=== PATIENT | male | born 1940 | race Caucasian/White ===

== ENCOUNTER → 2018-04-07 09:22 | Outpatient (CLI) | payer MEDICARE, SELFPAY ==
--- NOTE | 2018-04-07 09:25 | DI.RAD.S_ITS ---
PROCEDURE: XR CHEST 2V INDICATIONS: Chest pain, shortness of breath TECHNIQUE: 2 views of the chest were acquired. COMPARISON: [facility], , CHEST 2 VIEW, 11/05/2014, 8:31. FINDINGS: Surgical changes and devices: None. Lungs and pleura: No pleural effusions or pneumothorax. Redemonstrated left basilar scarring versus atelectasis. Increased right basilar opacities noted, seen on both PA and lateral views. Mediastinum: Mediastinal contours are normal. Heart size is normal. Bones and chest wall: Multilevel degenerative changes of the spine noted. IMPRESSION: Increased right basilar opacities favored to represent atelectasis versus pneumonia. Dictated by: Alpesh Chicas M.D. on 04/07/2018 at 11:41 Approved by: Alpesh Chicas M.D. on 04/07/2018 at 11:50
[2018-04-07 10:03] LABS: Add Manual Diff / Slide Review NO; Basophils Percent Auto 0.5 % (0-2); Eosinophils Percent Auto 3.1 % (2-4); Hematocrit 43.7 % (41-53); Lymphocytes Percent Auto 22.4 % (25-40); Mean Corpuscular HGB Conc 34.3 % (30-36); Mean Corpuscular Hemoglobin 30.9 PG (26-34); Monocytes Percent Auto 10.2 % (3-14); Neutrophils Absolute Auto 5200 /uL (3000-5900); Neutrophils Percent Auto 63.8 % (50-75); Platelet Count 208 X10^3/uL (150-400); Red Blood Cell Count 4.85 X10^6/uL (4.5-5.9); Red Cell Distribution Width 13.6 % (11.6-14.8); White Blood Cell Count 8.1 X10^3/uL (4.5-11.0)
[2018-04-07 10:14] LABS: Alanine Aminotransferase 35 IU/L (21-72); Albumin 4.3 g/dL (3.5-5.0); Albumin Globulin Ratio 1.4 (1.0-2.8); Alkaline Phosphatase 69 U/L (38-126); Aspartate Aminotransferase 29 IU/L (17-59); BUN Creatinine Ratio 21.3 (6-22); Bilirubin Total 0.7 mg/dL (0.2-1.3); Blood Urea Nitrogen 32 mg/dL (9-20); Calcium 9.4 mg/dL (8.4-10.2); Carbon Dioxide 24 mmol/L (22-32); Chloride 108 mmol/L (98-107); Estimated Glomerular Filt Rate 45.5 mL/min (>60); Glucose 111 mg/dL (80-110); HEMOLYSIS 17 (0-50); Magnesium 2.1 mg/dL (1.6-2.3); Potassium 4.1 mmol/L (3.4-5.1); Sodium 144 mmol/L (137-145); Total Protein 7.3 g/dL (6.3-8.2)
[2018-04-07 10:26] LABS: D Dimer < 200 ng/mL (<230)
== END ==
PROVIDERS: Family Provider Family Medicine; PCP Family Medicine; Visit Provider Registered Nurse
DX: R06.02 Shortness of breath (principal); R07.9 Chest pain, unspecified
CPT/HCPCS: 71046; 80053; 83735; 85025; 85379

== ENCOUNTER → 2018-04-09 11:26 | Outpatient (CLI) | payer MEDICARE, OTHER, SELFPAY ==
--- NOTE | 2018-05-02 07:56 | P.HOLT.S_ITS ---
Associate Media Director Report Referral & Results Date Patient Seen: 04/09/18 Requesting provider: Catherine Brock Indication: Chest pain Duration of monitoring (days): 14 Diary information: There was 1 patient diary entry and 5 patient triggered events. These were associated with sinus rhythm and PVCs Data: Minimum heart rate identified was 55 beats per minute at 00:59 on 2017 Maximum sinus heart rate was 121 beats per minute at 10:03 on 04/19/2018 Maximum overall heart rate was 169 beats per minute at 14:27 on 04/10/2018 and this was associated with a 70 run of supraventricular tachycardia Less than 1% of identified beats were either ectopic from a supraventricular or ectopic from a ventricular origin Patient did have 20 runs of a supraventricular tachycardia or atrial tachycardia with the fastest being the 7 be run at 169 beats per minute in the longest being 13 beats Impression: 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 Mild supraventricular dysrhythmia as above. Clinical correlation suggested
== END ==
PROVIDERS: Family Provider Family Medicine; PCP Family Medicine; Visit Provider Registered Nurse
DX: R07.89 Other chest pain (principal)
CPT/HCPCS: 0296T

== ENCOUNTER → 2018-04-16 09:17 | Outpatient (CLI) | payer MEDICARE, SELFPAY ==
--- NOTE | 2018-04-16 09:20 | DI.ECHO.S_ITS ---
[facility]---------+ [facility] +---------+ : : [address] : : : : [id number] : : : : Phone: [phone]+ Echocardiogram Report + + :Name: DOUGLAS STAUFFER Study Date: 04/16/2018 Height: 67 in : :[facility] Exam Location: IS Weight: 207 lb : : Gender: Male BSA: 2.1 m2 : :: 1940 Age: 78 yrs BP: 100/65 mmHg: :Reason For Study: SOB/ Acute fatigue : : Performed By: Caterina Page : :Referring: DEE DEE CARRANZA : + + Interpretation Summary The left ventricle is normal in size. Left ventricular ejection fraction is estimated to be 55 +/- 5%. There has been no significant change in LV EF since the previous exam. The right ventricle is mildly dilated. The right ventricular systolic function is normal. The aortic valve is trileaflet. Leaflet mobility is minimally reduced. The peak aortic velocity is 2.1 m/sec. The peak aortic velocity on the previous exam was 2.1 m/sec. The calculated aortic valve area is 1.9 cm2. There is mild aortic stenosis. There has been no significant change since the previous study. The aortic root is mildly dilated. The ascending aorta is mildly enlarged. Mild atherosclerotic plaque(s) in the descending aorta. Procedure: A two-dimensional transthoracic echocardiogram with color flow and Doppler was performed. The study quality was technically adequate. Comparison is made with the echocardiogram of 03/02/2016. The heart rate ranged between 69-75 bpm during the study. The patient was in normal sinus rhythm during the exam. The patient had a bundle branch block rhythm during the exam. Left Ventricle: The left ventricle is normal in size. Proximal septal thickening is noted. There is no echo evidence for significant left ventricular outflow tract obstruction. There is no thrombus. There has been no significant change since the previous exam. Left ventricular ejection fraction is estimated to be 55 +/- 5%. There is a significant dyssynchronous contraction pattern, consistent with a conduction abnormality. Diastolic parameters suggest a relaxation abnormality of the left ventricle, consistent with probable normal filling pressures. Right Ventricle: The right ventricle is mildly dilated. The right ventricular systolic function is normal. Atria: The left atrial size is normal. The left atrium has mildly decreased in size since the prior echo exam. The right atrium is borderline dilated. There is no Doppler evidence for an interatrial shunt. Mitral Valve: The mitral valve leaflets appear thickened, but open well. There is moderate mitral annular calcification. No significant mitral valve stenosis. There is trace mitral regurgitation. Aortic Valve: The aortic valve is trileaflet. Leaflet mobility is minimally reduced. The aortic valve is mildly calcified. The peak aortic velocity is 2.1 m/sec. The peak aortic velocity on the previous exam was 2.1 m/sec. The calculated aortic valve area is 1.9 cm2. There has been no significant change since the previous study. There is mild aortic stenosis. No aortic regurgitation is present. Tricuspid Valve: The tricuspid valve is normal in structure and function. There is a trace or physiologic amount of tricuspid regurgitation. Pulmonary artery pressures cannot be estimated because of the lack of a measurable TR jet velocity. Pulmonic Valve: The pulmonic valve is not well visualized. There is trace pulmonic regurgitation. Great Vessels: The aortic root is mildly dilated. This is unchanged compared to the previous study. The ascending aorta is mildly enlarged. The aortic arch could not be visualized. Mild atherosclerotic plaque(s) in the descending aorta. The pulmonary artery is not well visualized, but is probably normal size. The IVC is of normal diameter and collapses greater than 50% with a sniff. This suggests a low right atrial pressure of 3 mm Hg. Pericardium/ Pleura There is no pericardial effusion. There is an anterior echo-free space consistent with a fat pad. There is no pleural effusion. MMode/2D Measurements & Calculations LVIDd: 5.1 cm LVOT diam: 2.3 cm LVIDs: 3.5 cm Ao root diam: 4.0 cm FS: 32.2 % asc Aorta Diam: 3.7 cm EPSS: 0.74 cm IVSd: 0.98 cm LVPWd: 1.1 cm LV hidalgo. diameter/BSA (cm/m^2): 2.5 LV sys. diameter/BSA (cm/m^2): 1.7 LA A2 area: 23.5 cm2 RA long axis: 6.1 cm LA A4 area: 22.6 cm2 RA area: 22.0 cm2 LA length (vol): 6.7 cm RA vol: 67.6 ml LA vol: 67.3 ml RA : 32.9 ml/m2 LA vol index: 32.8 ml/m2 IVC diam: 1.9 cm RVD1 (basal): 4.7 cm TAPSE: 1.9 cm Doppler Measurements & Calculations Ao V2 max: 208.6 cm/sec LVOT Max Walker: 101.9 cm/sec Ao V2 mean: 139.7 cm/sec LV V1 max P.2 mmHg Ao max P.4 mmHg LV V1 VTI: 14.9 cm Ao mean P.6 mmHg JOURDAN(I,D): 1.9 cm2 Ao V2 VTI: 32.0 cm JOURDAN(V,D): 2.0 cm2 sev ratio: 0.46 JOURDAN indexed to BSA (cm^2/m^2): 0.92 MV E max walker: 60.6 cm/sec TR max walker: 211.7 cm/sec MV A max walker: 100.6 cm/sec TR max P.9 mmHg MV E/A: 0.60 PA V2 max: 90.2 cm/sec Med Peak E' Walker: 4.3 cm/sec PA V2 mean: 54.1 cm/sec E/E' med: 14.0 PA mean P.3 mmHg Lat Peak E' Walker: 5.1 cm/sec PA Accel Time: 0.08 sec E/E' lat: 12.0 E/e' average: 13.0 MV dec time: 0.19 sec MV P1/2t: 55.4 msec MV P1/2t max walker: 60.8 cm/sec MVA(P1/2t): 4.0 cm2 Reading Physician:AM
== END ==
PROVIDERS: Family Provider Internal Medicine Cardiovascular Disease; PCP Family Medicine; Visit Provider Registered Nurse
DX: I35.0 Nonrheumatic aortic (valve) stenosis (principal); R06.02 Shortness of breath; R53.83 Other fatigue; I25.10 Atherosclerotic heart disease of native coronary artery without angina pectoris
CPT/HCPCS: 93306

== ENCOUNTER 2018-05-30 07:39 | Day surgery (SDC) | payer MEDICARE, OTHER, SELFPAY ==
--- NOTE | 2018-05-30 | PATH_ITS ---
[facility] Accession Number: [id number] . 01 Material submitted: . COLON POLYPS AT 100CM X2 . 02 Diagnosis: Colon, Polyps at 100 cm, Biopsies: Tubular adenoma in four of twelve fragments. [facility]/06/02/2018 . 02 Electronically signed: . Merlene Welch MD, Pathologist NPI- [id number] . 01 Gross description: . Received in one formalin-filled container labeled with the patient's name and labeled colon polyps at 100 cm x2, are multiple 0.1 cm to 0.4 cm portions of tissue, which are filtered, wrapped, and entirely submitted in one cassette. ([id number]) /FRR . 02 Pathologist provided ICD-10: D12.6 . 02 CPT . 754373 Specimen Comment: A duplicate report has been generated due to demographic updates. Performed at: 01 [facility] [address] [facility] [place], [place], [place] [id number] MD Ramón Mckeon MD Phone: [phone] Performed at: [facility] [address] [place], [place] [id number] MD Merlene Welch MD Phone: [phone]
[2018-05-30 07:51] VITALS: BP 117/77; PULSE 73; RESP 16; TEMP 36.3; O2SAT 96; BMI 28.7
--- NOTE | 2018-05-30 09:05 | PM.HP.1 ---
History of Present Illness Date Patient Seen: 05/30/18 Time Patient Seen: 09:05 Chief complaint: [id number] Narrative: Patient is a gentleman here for screening colonoscopy. His last exam was 6 years ago. He has had polyps in the past. He also has a family history of colon cancer. His mother had it. Patient History Medical History Cataract (Chronic) Chronic cough (Chronic) Diverticular disease (Chronic) Foot pain (Chronic 2013) Gout (Chronic) Hayfever (Chronic) Hearing loss (Chronic) Bladder cancer (Resolved 2007) Chicken pox (Resolved) Colon polyps (Resolved) Measles (Resolved) Mumps (Resolved) Surgical History History of cataract extraction with lens replacement (Acute) Anesthesia (Resolved) History of bladder surgery (Resolved 2007) Status post appendectomy (Resolved 1964) Status post hernia repair (Resolved 1964) Family & Social History Family History: Reviewed 05/30/18 by Nav Calderon MD Social History: household members spouse Tobacco & Substance use: Smoking Status Former smoker Meds Home Medications Medication Instructions Recorded Confirmed Type glucosamine sulfate [Genicin] 500 mg PO #0 02/21/16 04/04/18 History atorvastatin [Lipitor] 80 mg PO HS #90 tab 07/11/17 04/04/18 Rx losartan 25 mg PO QDAY #90 tab 07/11/17 04/04/18 Rx probenecid 500 mg PO SEE INSTRUCTIONS #180 tab 07/11/17 04/04/18 Rx Allergies Allergy/AdvReac Type Severity Reaction Status Date / Time No Known Drug Allergies Allergy Verified 05/30/18 08:11 Review of Systems Review of Systems Has had chest pain in the past evaluated and found to be noncardiac in nature. History of bladder cancer. Underwent TURB All systems reviewed & are unremarkable except as noted in HPI and below Exam Vital Signs (past 8 hours): - 05/30/18 07:51 Temperature 97.3 F L Pulse Rate 73 Respiratory Rate 16 Blood Pressure 117/77 Pulse Oximetry 96 Oxygen Delivery Method Room Air Narrative Exam Narrative: Operative no apparent distress. His eyes are nonicteric. Lungs are clear to auscultation. No rales or rhonchi. Heart regular rate and rhythm without murmur gallop. Abdomen is soft nontender without mass. Protuberant. Alert and oriented x3. Assessment & Plan Plan: Assessment/Plan Narrative: Patient is screening colonoscopy. I have discussed the procedure and the rationale with the patient including risks of bleeding, perforation which would necessitate a major operation, failure to find remove all lesions and the potential to tattoo. They appeared to understand and wished to proceed.
--- NOTE | 2018-05-30 09:09 | PM.PREOP ---
Pre-operative Note Interval Note Pre-op Check: Yes History & Physical exam performed today by Physician Changes: No ASA Class (for procedural sedation): II
[2018-05-30] MEDS: MIDAZOLAM 5 MG/5 ML VIAL IV (09:28)
[2018-05-30] MEDS: fentaNYL 250 MCG/5 ML INJ IV (09:28)
[2018-05-30] MEDS: SODIUM CHLORIDE 0.9% 1,000 ML 1000 ML IV (09:31)
--- NOTE | 2018-05-30 09:38 | PM.OP.ENDO ---
Operative Date/Time/Diagnoses Date of procedure: 05/30/18 Time of procedure: 09:38 Pre-op diagnosis: Screening examination. History of polyps. Family history colon cancer. Post-op diagnosis: same (Extensive diverticulosis from 20-80 cm. No narrowing or tortuosity however. No evidence of prior inflammation. Two small polyps that approximately 100 cm from the anal verge.) Procedure & Clinicians Study performed: Colonoscopy with cold biopsy. Same procedure as scheduled: Yes Indications: Screening. Last exam 6 years ago. History of polyps/positive family history Surgeon: Nav Calderon Procedure Notes SCOAP/Timeout: Performed Procedure in detail: The patient was placed in the left lateral decubitus position and underwent IV sedation directed by the surgeon consisting of fentanyl and Versed. Digital exam was unremarkable. The prostate is flat.. The scope was inserted and advanced through the rectum into the sigmoid, descending, transverse, and ascending colon. Somewhere in the area of the transverse colon there was a small polyp which I identified and removed with cold biopsy forceps. The cecum was reached identified by the ileocecal valve and the appendiceal opening. The ileocecal valve was successfully cannulated. The terminal ileum was normal in appearance. The scope was gradually brought out. Another Polyp was found near the 1st polyp. This was too was biopsied and removed.. The scope ultimately was retroflexed in the rectum. The appearance was normal. The scope was removed and the patient tolerated the procedure well Scope withdrawal time: Twelve Sedation minutes: 25 Findings: diverticulosis (Principally in the left colon. A few were scattered elsewhere.) and polyp (Two near 100 cm from the anal verge.) Recommendations: Colonscopy in 5 years Follow up: as needed Disposition: PACU
[2018-05-30 09:45] VITALS: BP 114/73; PULSE 64; RESP 10; TEMP 36; O2SAT 96
[2018-05-30 09:50] VITALS: BP 109/67; PULSE 58; RESP 12; O2SAT 95
[2018-05-30 09:55] VITALS: BP 106/70; PULSE 64; RESP 15; O2SAT 94
[2018-05-30 09:59] VITALS: BP 110/69; PULSE 60; RESP 15; TEMP 35.9; O2SAT 92
[2018-05-30 10:10] VITALS: BP 112/66; PULSE 58; RESP 16; TEMP 36.1; O2SAT 94
== END 2018-05-30 10:20 | disposition home or self-care (01) ==
PROVIDERS: Family Provider Internal Medicine Cardiovascular Disease; PCP Family Medicine; Visit Provider Specialist
PROC: 0DJD8ZZ Inspection of Lower Intestinal Tract, Via Natural or Artificial Opening Endoscopic (ICD-10-PCS; CPT 45378; principal; 2018-05-30 08:45)
DX: Z86.010 Personal history of colon polyps (principal); Z80.0 Family history of malignant neoplasm of digestive organs; K57.30 Diverticulosis of large intestine without perforation or abscess without bleeding; D12.6 Benign neoplasm of colon, unspecified; Z87.891 Personal history of nicotine dependence
CPT/HCPCS: 45380; 88305; 99152; 99153; J2250; J3010

== ENCOUNTER → 2018-12-03 06:49 | Outpatient (CLI) | payer MEDICARE, OTHER, SELFPAY ==
[2018-12-03 08:26] LABS: Add Manual Diff / Slide Review NO; Basophils Absolute Auto 100 /uL (0-100); Basophils Percent Auto 0.7 % (0-2); Eosinophils Absolute Auto 200 /uL (0-450); Eosinophils Percent Auto 3.1 % (2-4); Hematocrit 45.9 % (41-53); Lymphocytes Absolute Auto 1600 /uL (1100-4500); Mean Corpuscular HGB Conc 32.8 % (30-36); Mean Corpuscular Hemoglobin 29.8 PG (26-34); Mean Corpuscular Volume 91.1 fL (80-100); Monocytes Absolute Auto 900 /uL (0-900); Monocytes Percent Auto 11.8 % (3-14); Neutrophils Absolute Auto 5100 /uL (1500-7000); Neutrophils Percent Auto 64.4 % (50-75); Platelet Count 199 X10^3/uL (150-400); Red Blood Cell Count 5.03 X10^6/uL (4.5-5.9); Red Cell Distribution Width 13.3 % (11.6-14.8)
[2018-12-03 08:47] LABS: Alanine Aminotransferase 32 IU/L (21-72); Albumin 4.5 g/dL (3.5-5.0); Albumin Globulin Ratio 1.5 (1.0-2.8); Alkaline Phosphatase 74 U/L (38-126); Aspartate Aminotransferase 24 IU/L (17-59); Bilirubin Total 0.6 mg/dL (0.2-1.3); Blood Urea Nitrogen 35 mg/dL (9-20); Calcium 9.6 mg/dL (8.4-10.2); Carbon Dioxide 24 mmol/L (22-32); Chloride 105 mmol/L (98-107); Cholesterol 169 mg/dL (140-199); Estimated Glomerular Filt Rate 49.3 mL/min (>60); Globulin 3.1 g/dL (1.7-4.1); Glucose 106 mg/dL (80-110); HDL Cholesterol 46 mg/dL (40-60); LDL Cholesterol Calculated 102 mg/dL (<100); Potassium 4.6 mmol/L (3.4-5.1); Sodium 140 mmol/L (137-145); Total Protein 7.6 g/dL (6.3-8.2); Triglycerides 104 mg/dL (35-150)
[2018-12-03 09:17] LABS: Thyroid Stimulating Hormone 2.59 uIU/mL (0.47-4.68)
[2018-12-03 09:19] LABS: HEMOLYSIS < 15 (0-50); Prostate Specific Antigen Scrn 0.418 ng/mL (0.1-4.0)
== END ==
PROVIDERS: PCP Family Medicine; Visit Provider Family Medicine
DX: I10 Essential (primary) hypertension (principal); Z12.5 Encounter for screening for malignant neoplasm of prostate
CPT/HCPCS: 36415; 80053; 80061; 84443; 85025; G0103

== ENCOUNTER → 2019-02-09 07:18 | Outpatient (CLI) | payer MEDICARE, OTHER, SELFPAY ==
[2019-02-09 08:59] LABS: Alanine Aminotransferase 24 IU/L (21-72); Albumin 4.2 g/dL (3.5-5.0); Albumin Globulin Ratio 1.5 (1.0-2.8); Alkaline Phosphatase 80 U/L (38-126); Aspartate Aminotransferase 21 IU/L (17-59); BUN Creatinine Ratio 18.6 (6-22); Bilirubin Total 0.8 mg/dL (0.2-1.3); Blood Urea Nitrogen 26 mg/dL (9-20); C-Reactive Protein Quant < 0.5 mg/dL (<1.0); Calcium 9.5 mg/dL (8.4-10.2); Carbon Dioxide 22 mmol/L (22-32); Chloride 106 mmol/L (98-107); Cholesterol 155 mg/dL (140-199); Estimated Glomerular Filt Rate 49.3 mL/min (>60); Globulin 2.8 g/dL (1.7-4.1); Glucose 103 mg/dL (80-110); HDL Cholesterol 45 mg/dL (40-60); HEMOLYSIS < 15 (0-50); LDL Cholesterol Calculated 82 mg/dL (<100); Potassium 4.7 mmol/L (3.4-5.1); Sodium 139 mmol/L (137-145); Triglycerides 141 mg/dL (35-150)
== END ==
PROVIDERS: Family Provider Family Medicine; PCP Family Medicine; Visit Provider Internal Medicine Cardiovascular Disease
DX: E78.5 Hyperlipidemia, unspecified (principal)
CPT/HCPCS: 36415; 80053; 80061; 86140

== ENCOUNTER → 2019-02-19 09:41 | Outpatient (CLI) | payer MEDICARE, OTHER, SELFPAY ==
--- NOTE | 2019-02-19 | DI.US.S_ITS ---
PROCEDURE: US CAROTID DOPPLER BI INDICATIONS: STENOSIS TECHNIQUE: Color and pulse Doppler interrogation was performed of both carotid systems, with image documentation and velocity measurements. COMPARISON: [facility], , CAROTID ARTERY DOPPLER BILAT, 03/02/2016, 13:51. FINDINGS: Stenosis calculations are based on SRU (Society of Radiologists in Ultrasound) criteria. Right side: Brachial blood pressure: 124/81 mm Hg. Common carotid artery peak systolic velocity: 84 cm/sec. Internal carotid artery peak systolic velocity: 75 cm/sec. Internal carotid artery end diastolic velocity: 26 cm/sec. External carotid artery peak systolic velocity: 77 cm/sec. ICA/CCA peak systolic ratio: 0.9. Coto scale imaging description: Minimal plaque. Percent internal carotid artery stenosis: Less than 50%. Vertebral artery: Flow direction is antegrade. Left side: Brachial blood pressure: 109/69 mm Hg. Common carotid artery peak systolic velocity: 80 cm/sec. Internal carotid artery peak systolic velocity: 62 cm/sec. Internal carotid artery end diastolic velocity: 23 cm/sec. External carotid artery peak systolic velocity: 74 cm/sec. ICA/CCA peak systolic ratio: 0.8. Coto scale imaging description: Minimal plaque. Percent internal carotid artery stenosis: Less than 50%. Vertebral artery: Flow direction is antegrade. IMPRESSION: Less than 50% bilateral internal carotid artery stenosis which is unchanged from prior exam. Dictated by: Eder Santos [facility] Interpreted: Ravinder Marvin MD on 02/19/2019 at 14:36 Approved by: Ravinder Marvin M.D. on 02/19/2019 at 14:52
== END ==
PROVIDERS: Family Provider Family Medicine; PCP Family Medicine; Visit Provider Internal Medicine Cardiovascular Disease
DX: I65.23 Occlusion and stenosis of bilateral carotid arteries (principal)
CPT/HCPCS: 93880

== ENCOUNTER → 2019-03-18 14:21 | Outpatient (CLI) | payer MEDICARE, OTHER, SELFPAY ==
--- NOTE | 2019-03-18 14:24 | DI.RAD.S_ITS ---
PROCEDURE: XR HIP W PEL IF DONE RT 2V INDICATIONS: right hip pain TECHNIQUE: AP pelvis with lateral view(s) of the right hip(s). COMPARISON: None. FINDINGS: Bones: No fractures or dislocations. Pelvic ring appears intact. No suspicious bony lesions. Soft tissues: The visualized bowel gas pattern is normal. No suspicious soft tissue calcifications. IMPRESSION: Mild symmetric hip joint osteoarthritis, no source of asymmetric right-sided predominant pain is found. Dictated by: Frank German M.D. on 03/18/2019 at 15:29 Approved by: Frank German M.D. on 03/18/2019 at 15:29
== END ==
PROVIDERS: Family Provider Family Medicine; PCP Family Medicine; Visit Provider Nurse Practitioner Family
DX: M25.551 Pain in right hip (principal); M16.11 Unilateral primary osteoarthritis, right hip
CPT/HCPCS: 73502

== ENCOUNTER 2019-07-05 23:31 | Emergency (ER) | payer MEDICARE, OTHER, SELFPAY ==
[2019-07-05 23:41] VITALS: BP 174/95; PULSE 76; RESP 16; TEMP 36.6; O2SAT 95; BMI 27.2
--- NOTE | 2019-07-05 23:57 | ED.GENADULT ---
HPI - General Adult General Chief complaint: Dental/Oral Stated complaint: left upper jaw/tooth pain Time Seen by Provider: 07/05/19 23:46 Source: patient Mode of arrival: Ambulatory Limitations: no limitations History of Present Illness HPI narrative: 79-year-old male here for evaluation of left upper tooth/jaw pain. Patient states that he does wear partial on this side. Thinks that he did injure his tooth when he bit down on a piece of food over the past day or so. Has not seen a dentist since then. Has had pain since then. Related Data Previous Rx's Medication Instructions Recorded atorvastatin [Lipitor] 80 mg PO HS #90 tab 07/11/17 losartan 25 mg PO QDAY #90 tab 07/11/17 probenecid 500 mg tablet 500 mg PO BID #180 tab 06/30/18 penicillin V potassium 500 mg PO QID 7 Days #28 tab 07/05/19 Allergies Allergy/AdvReac Type Severity Reaction Status Date / Time No Known Drug Allergies Allergy Verified 03/18/19 13:54 Review of Systems Constitutional Constitutional: Denies headache(s) ENT Ears, Nose, Mouth, and Throat: Denies headache(s) Comments: Left upper tooth/strong pain Integumentary/Breasts Skin/Breast: Denies lesions and Denies rash Neurologic Neurologic: Denies behavioral changes and Denies headache(s) Psychiatric Psychiatric: Denies behavioral changes Hematologic/Lymphatic Hematologic/Lymphatic: Denies easy bleeding and Denies easy bruising Patient History Medical History Bladder cancer (Resolved 2007) Cataract (Chronic) Chicken pox (Resolved) Chronic cough (Chronic) Colon polyps (Resolved) Diverticular disease (Chronic) Foot pain (Chronic 2013) Gout (Chronic) Hayfever (Chronic) Hearing loss (Chronic) Measles (Resolved) Mumps (Resolved) Surgical History (System 02/16/19 @ 10:12 by Nimo Morrissey) Anesthesia (Resolved) History of bladder surgery (Resolved 2007) History of cataract extraction with lens replacement (Acute) Status post appendectomy (Resolved 1964) Status post hernia repair (Resolved 1964) Social History household members: spouse Smoking Status: Former smoker Smoking Status: Former smoker alcohol intake frequency: 0-2 drinks per day Substance Use Type: does not use Exam Initial Vital Signs Initial Vital Signs: Vital Signs Temperature 97.8 F 07/05/19 23:41 Pulse Rate 76 07/05/19 23:41 Respiratory Rate 16 07/05/19 23:41 Blood Pressure 174/95 H 07/05/19 23:41 Pulse Oximetry 95 07/05/19 23:41 Const General: cooperative and comfortable HENMT Head: normal to inspection and normocephalic Ears: TM's normal bilaterally Mouth: oral mucosae normal Teeth and gingiva: no caries and other (Tooth 13 is loose) Eyes General: appearance normal, both eyes and all related structures Resp Effort & Inspection: normal respiratory effort Neuro General: alert and awake Course Orders Ordered: Discontinued Medications Penicillin V Potassium (Veetids) 500 mg PO NOW ONE Stop: 07/05/19 23:59 Last Admin: 07/06/19 00:05 Dose: 500 mg Documented by: MORRO Vital Signs Vital signs: Vital Signs - 8 hr 07/05/19 23:41 Temperature 97.8 F Pulse Rate 76 Respiratory Rate 16 Blood Pressure 174/95 H Pulse Oximetry 95 Medical Decision Making MDM Narrative Medical decision making narrative: No defined abscess on exam. Is missing several left upper teeth. I believe it is tooth 13. Is loose to the touch and he does seem to have discomfort with this. He states that this was the to the potentially injured while eating. Will start the patient on antibiotics given his symptoms. Informed him that he should talk with a dentist about further evaluation and treatment. He was given return precautions and follow-up instructions. He expressed understanding and agreement plan. Discharge Plan Departure Patient Disposition: Home Clinical Impression: Pain, dental Discharge Date/Time: 07/06/19 00:08 Instructions: DI for Dental Pain Activity Restrictions/Additional Instructions: Take the antibiotics as directed. You can also continue to take Tylenol and/or ibuprofen. I do recommend that you see a dentist for further definitive treatment. Return to the emergency department for any new symptoms Prescriptions: New penicillin V potassium 500 mg tablet 500 mg PO QID 7 Days Qty: 28 RF: 0 No Action atorvastatin [Lipitor] 80 MG tablet 80 mg PO HS Qty: 90 RF: 3 losartan 25 MG tablet 25 mg PO QDAY Qty: 90 RF: 3 probenecid 500 mg tablet 500 mg PO BID Qty: 180 RF: 3 Referrals: Quinn Dockrey MD [Primary Care Provider] -
[2019-07-06] MEDS: PENICILLIN VK 250 MG TABLET 500 MG PO (00:05)
== END 2019-07-06 00:08 | disposition home or self-care (01) ==
PROVIDERS: Emergency Provider Emergency Medicine; Family Provider Family Medicine; PCP Family Medicine
DX: K08.89 Other specified disorders of teeth and supporting structures (principal)
CPT/HCPCS: 99281; 99283

== ENCOUNTER → 2019-11-04 15:41 | Outpatient (CLI) | payer MEDICARE, SELFPAY ==
--- NOTE | 2019-11-04 15:47 | DI.CT.S_ITS ---
PROCEDURE: CT HEAD/BRAIN WO CON INDICATIONS: Concussion TECHNIQUE: Noncontrast 4.5 mm thick angled axial sections acquired from the foramen magnum to the vertex, with coronal and sagittal reformats. For radiation dose reduction, the following was used: automated exposure control, adjustment of mA and/or kV according to patient size. COMPARISON: None. FINDINGS: Image quality: Excellent. CSF spaces: Basal cisterns are patent. No extra-axial fluid collections. The ventricles are symmetric in size and shape. Brain: No intracranial bleeds or masses. There is cerebral volume loss for age, with resultant ventricular and sulcal prominence. There are mild periventricular and deep white matter chronic small vessel ischemic changes. There is intracranial internal carotid artery atherosclerosis. Skull and face: Calvarium and visualized facial bones appear intact, without suspicious lesions. Small subgaleal hematoma, right parieto-occipital region. Sinuses: Visualized sinuses and mastoids are clear. IMPRESSION: 1. Age related volume loss and mild small vessel ischemic change. 2. Negative for acute stroke, hemorrhage, or mass. 3. No evidence of significant intracranial sequelae of acute trauma. 4. Small right right occipital region subgaleal hematoma. Dictated by: Mason Chopra M.D. on 11/04/2019 at 16:09 Approved by: Mason Chopra M.D. on 11/04/2019 at 16:11
== END ==
PROVIDERS: Family Provider Family Medicine; PCP Family Medicine; Referring Provider Family Medicine; Visit Provider Family Medicine
DX: S06.0X9A Concussion with loss of consciousness of unspecified duration, initial encounter (principal); S06.319A Contusion and laceration of right cerebrum with loss of consciousness of unspecified duration, initial encounter; X58.XXXA Exposure to other specified factors, initial encounter
CPT/HCPCS: 70450

== ENCOUNTER → 2019-11-16 09:30 | Outpatient (CLI) | payer MEDICARE, SELFPAY ==
--- NOTE | 2019-11-16 09:32 | DI.RAD.S_ITS ---
PROCEDURE: FL BARIUM SWALLOW INDICATIONS: Dysphagia COMPARISON: None. FINDINGS: Function: There is moderate esophageal dysmotility with loss of the primary wave. No elicited gastroesophageal reflux. Morphology: There is a small intermittent sliding hiatal hernia. Air-contrast images demonstrate normal mucosal morphology. Single contrast views show no esophageal strictures, extrinsic mass effects, or diverticula. Limited images of the stomach demonstrate normal appearance. IMPRESSION: 1. Moderate esophageal dysmotility. 2. Small hiatal hernia. Dictated by: Lea Guillen M.D. on 11/16/2019 at 16:22 Approved by: Lea Guillen M.D. on 11/16/2019 at 16:22
== END ==
PROVIDERS: Family Provider Family Medicine; PCP Family Medicine; Referring Provider Family Medicine; Visit Provider Family Medicine
DX: R13.10 Dysphagia, unspecified (principal); K22.4 Dyskinesia of esophagus; K44.9 Diaphragmatic hernia without obstruction or gangrene
CPT/HCPCS: 74220

== ENCOUNTER 2019-11-19 22:55 | Emergency (ER) | payer MEDICARE, SELFPAY ==
[2019-11-19 23:05] VITALS: BP 136/85; PULSE 96; RESP 16; TEMP 36.3; O2SAT 96; BMI 27.9
--- NOTE | 2019-11-19 23:16 | PC.NURSE ---
Dental assessment deferred to .
[2019-11-19] MEDS: BUPIVACAINE 0.5% W/ EPI (PF) 30 ML VIAL (23:29)
[2019-11-19] MEDS: AMOXICILLIN/CLAV 875/125 MG 1 TAB PO (23:57)
[2019-11-20] VITALS: BP 134/85; PULSE 89; RESP 15; O2SAT 97
--- NOTE | 2019-11-20 07:03 | ED_ITS ---
HPI - Dental/Oral General Chief complaint: Dental/Oral Stated complaint: broken tooth Time Seen by Provider: 11/19/19 22:55 Source: patient Mode of arrival: Ambulatory Limitations: no limitations History of Present Illness HPI Narrative: 79M former smoker with history of HTN presents with a chief complaint of dental pain of a left upper tooth after fracturing it a few weeks ago. He complains of worsening pain and perhaps beginning of some facial cellulitis. He denies any fever chills. He has had no nausea, vomiting or diarrhea. He states his pain is not been controlled with Tylenol, Motrin or Orajel. He has been trying to get a dentist but but thus far unsuccessful Teeth map: 1. Onset (ago): day(s) Duration: constant Severity: mild Relieving factors: nothing Exacerbating factors: chewing, cold, heat and drinking fluids Context: history of dental caries Treatment prior to arrival: none Related Data Home Medications Medication Instructions Recorded Confirmed aspirin 325 mg tablet 162.5 mg PO DAILY tab 11/04/19 11/04/19 probenecid 500 mg tablet 500 mg PO .QD tab 11/04/19 Previous Rx's Medication Instructions Recorded losartan 25 mg PO QDAY #90 tab 07/11/17 amoxicillin-pot clavulanate 1 tab PO BID #20 tab 11/19/19 [Augmentin] Allergies Allergy/AdvReac Type Severity Reaction Status Date / Time No Known Drug Allergies Allergy Verified 11/04/19 15:12 Review of Systems Constitutional Constitutional: Denies chills, Denies fatigue, Denies fever(s), Denies frequent falls, Denies lethargy and Denies weakness Eyes Eyes: Denies change in vision, Denies eye discharge, Denies irritation and Denies loss of vision ENT Ears, Nose, Mouth, and Throat: Denies change in voice, Reports dental pain, Denies dizziness, Denies neck pain, Denies sore throat and Denies throat swelling Cardiovascular Cardiovascular: Denies chest pain, Denies irregular heart rhythm, Denies lightheadedness, Denies palpitations, Denies dyspnea, Denies dyspnea on exertion and Denies orthopnea Respiratory Respiratory: Denies cough, Denies dyspnea, Denies dyspnea on exertion and Denies wheezing Gastrointestinal Gastrointestinal: Denies abdominal pain, Denies change in bowel habits, Denies diarrhea, Denies nausea and Denies vomiting Genitourinary Genitourinary: Denies hematuria, Denies flank pain, Denies urinary incontinence and Denies urinary urgency Musculoskeletal Musculoskeletal: Denies back pain, Denies muscle weakness, Denies neck pain, Denies numbness and Denies tingling Integumentary/Breasts Skin/Breast: Denies pruritus, Denies erythema, Denies rash and Denies wounds Neurologic Neurologic: Denies behavioral changes, Denies confusion, Denies dizziness, Denies frequent falls, Denies loss of vision, Denies numbness, Denies tingling and Denies weakness Psychiatric Psychiatric: Denies anxiety, Denies behavioral changes, Denies confusion, Denies depression, Denies homicidal ideation and Denies suicidal ideation Endocrine Endocrine: Denies fatigue, Denies flushing and Denies palpitations Hematologic/Lymphatic Hematologic/Lymphatic: Denies easy bruising Allergic/Immunologic Allergic/Immunologic: Denies urticaria, Denies throat swelling and Denies wheezing Patient History Medical History Bladder cancer (Resolved 2007) Cataract (Chronic) Chicken pox (Resolved) Chronic cough (Chronic) Colon polyps (Resolved) Diverticular disease (Chronic) Foot pain (Chronic 2013) Gout (Chronic) Hayfever (Chronic) Hearing loss (Chronic) Measles (Resolved) Mumps (Resolved) Surgical History Anesthesia (Resolved) History of bladder surgery (Resolved 2007) History of cataract extraction with lens replacement (Acute) Status post appendectomy (Resolved 1964) Status post hernia repair (Resolved 1964) Family History Father Heart disease Mother Cancer Brother No problems noted. Sister No problems noted. Social History household members: spouse Smoking Status: Former smoker Smoking Status: Former smoker alcohol intake frequency: 0-2 drinks per day Substance Use Type: does not use Exam Narrative Exam Narrative: GEN: AOx3 and in mild distress EYES: Pupils are equal, round, and reactive to light and accommodation. Extraocc ular muscles are intact bilaterally. There is no subconjunctival hemorrhage or exudate. ENT: Dental fracture noted at tooth #10. NO swelling or pain at gumline, no fluctuance to suggest abscess. Perhaps mild facial swelling superior to tooth, but minimal at most CHEST: Lungs are clear to auscultation bilaterally and free of wheezes, rales, or rhonchi. Heart rate is regular rhythm, there are no murmurs, clicks, rubs, or gallops. There is no chest wall tenderness. ABD: Abdomen is soft and nontender. There is no guarding or rebound. Bowel sounds are normal in all 4 quadrants. There is no mass or organomegaly. EXT: Full painless ROM of all extremities with no loss of sensation or strength. SKIN: Warm, pink, and dry. No erythema or rash Initial Vital Signs Initial Vital Signs: Vital Signs Temperature 97.3 F L 11/19/19 23:05 Pulse Rate 96 H 11/19/19 23:05 Respiratory Rate 16 11/19/19 23:05 Blood Pressure 136/85 11/19/19 23:05 Pulse Oximetry 96 11/19/19 23:05 Procedures Nerve Block Nerve Block 1: Time out performed: Yes Local Anesthetic: bupivacaine 0.25% and with epi Amount of anesthesia used (mL): 6 Side: left Nerve Blocks: digital Procedure Successful: Yes Patient Tolerated Procedure: Well Complications: none Course Orders Ordered: Discontinued Medications Amoxicillin/Clavulanate Potassium (Augmentin 875-125 Mg) 1 tab PO NOW ONE Stop: 11/19/19 23:50 Last Admin: 11/19/19 23:57 Dose: 1 tab Documented by: LILI Vital Signs Vital signs: Vital Signs - 8 hr 11/19/19 23:05 11/20/19 00:00 Temperature 97.3 F L Pulse Rate 96 H 89 Respiratory Rate 16 15 Blood Pressure 136/85 134/85 Pulse Oximetry 96 97 Discharge Plan Departure Patient Disposition: Home Clinical Impression: Abscess, dental Discharge Date/Time: 11/20/19 00:12 Instructions: Tooth Abscess, DI for Dental Pain Activity Restrictions/Additional Instructions: *You have been diagnosed with [dental pain and abscess ] *What to do: *Take medications as directed *Follow up with your dentist, if you do not have one please contact Dr. Zazueta (listed below) *Return to ER if you should have any new, worsening or concerning symptoms Prescriptions: New amoxicillin-pot clavulanate [Augmentin] 875-125 mg tablet 1 tab PO BID Qty: 20 RF: 0 No Action losartan 25 MG tablet 25 mg PO QDAY Qty: 90 RF: 3 probenecid 500 mg tablet 500 mg PO .QD RF: 0 aspirin 325 mg tablet 162.5 mg PO DAILY RF: 0 Referrals: Jun Zazueta DMD [Physician] - Quinn Dockery MD [Primary Care Provider] -
== END 2019-11-20 00:12 | disposition home or self-care (01) ==
PROVIDERS: Emergency Provider Emergency Medicine; Family Provider Family Medicine; PCP Family Medicine
DX: K04.7 Periapical abscess without sinus (principal)
CPT/HCPCS: 64450; 99283

== ENCOUNTER 2019-12-17 10:44 | Emergency (ER) | payer MEDICARE, SELFPAY ==
[2019-12-17 10:51] VITALS: BP 173/85; PULSE 73; RESP 16; TEMP 36.3; O2SAT 97; BMI 28.7
--- NOTE | 2019-12-17 10:54 | DI.CT.S_ITS ---
PROCEDURE: CT HEAD/BRAIN WO CON INDICATIONS: Confusion, word-finding issues TECHNIQUE: Noncontrast 4.5 mm thick angled axial sections acquired from the foramen magnum to the vertex, with coronal and sagittal reformats. For radiation dose reduction, the following was used: automated exposure control, adjustment of mA and/or kV according to patient size. COMPARISON: [facility], CT, CT HEAD/BRAIN WO CON, 11/04/2019, 15:48. FINDINGS: Image quality: Excellent. CSF spaces: Basal cisterns are patent. No extra-axial fluid collections. The ventricles are symmetric in size and shape. Brain: No intracranial bleeds or masses. There is cerebral volume loss for age, with resultant ventricular and sulcal prominence. There are periventricular and deep white matter chronic small vessel ischemic changes. There is intracranial internal carotid artery atherosclerosis. Skull and face: Calvarium and visualized facial bones appear intact, without suspicious lesions. Sinuses: Visualized sinuses and mastoids are clear. IMPRESSION: No CT evidence of acute intracranial pathology. No significant changes from previous study. Dictated by: Jorge Holguin M.D. on 12/17/2019 at 11:09 Approved by: Jorge Holguin M.D. on 12/17/2019 at 11:10
--- NOTE | 2019-12-17 11:00 | ED.NEUROSD ---
HPI - Neuro Symptoms/Deficit General Chief Complaint: Neuro Symptoms/Deficit Stated Complaint: memory problem/confusion Time Seen by Provider: 12/17/19 10:50 Source: patient Mode of arrival: Ambulatory Limitations: altered mental status History of Present Illness HPI Narrative: 79-year-old male here for evaluation of was reported as confusion. Approximately 1.5 hours prior to arrival in the emergency department the patient's states that he started having word-finding issues and seemed to be very confused. The patient does not remember this situation. She feels that he is improved to mentis least since the event but does not feel that he is completely back to normal. Patient was complaining of right arm numbness a couple days ago. He does not think that it is more numb today. He denied any other associated symptoms. Did take a full-dose aspirin prior to arrival. Has never had a stroke before. Not on anticoagulation. On Anticoagulants: No Related Data Home Medications Medication Instructions Recorded Confirmed aspirin 325 mg tablet 162.5 mg PO DAILY tab 11/04/19 11/04/19 probenecid 500 mg tablet 500 mg PO .QD tab 11/04/19 Previous Rx's Medication Instructions Recorded losartan 25 mg PO QDAY #90 tab 07/11/17 amoxicillin-pot clavulanate 1 tab PO BID #20 tab 11/19/19 [Augmentin] Allergies Allergy/AdvReac Type Severity Reaction Status Date / Time No Known Drug Allergies Allergy Verified 12/17/19 10:54 Review of Systems Constitutional Constitutional: Denies chills, Denies fatigue, Denies fever(s) and Denies headache(s) Eyes Eyes: Denies blurry vision, Denies change in vision and Denies loss of vision ENT Ears, Nose, Mouth, and Throat: Denies vertigo, Denies dizziness and Denies headache(s) Cardiovascular Cardiovascular: Denies chest pain, Denies rapid heart rate and Denies dyspnea Respiratory Respiratory: Denies cough and Denies dyspnea Gastrointestinal Gastrointestinal: Denies abdominal pain, Denies diarrhea and Denies nausea Musculoskeletal Musculoskeletal: Denies arthralgias, Denies myalgias and Reports tingling (Right arm) Integumentary/Breasts Skin/Breast: Denies lesions and Denies rash Neurologic Neurologic: Reports abnormal speech, Reports confusion, Denies vertigo, Denies dizziness, Denies headache(s), Denies loss of vision, Reports memory loss, Denies convulsions and Reports tingling (Right arm) Psychiatric Psychiatric: Reports confusion and Reports memory loss Endocrine Endocrine: Denies fatigue Hematologic/Lymphatic Hematologic/Lymphatic: Denies easy bleeding and Denies easy bruising Allergic/Immunologic Allergic/Immunologic: Denies urticaria Patient History Medical History Bladder cancer (Resolved 2007) Cataract (Chronic) Chicken pox (Resolved) Chronic cough (Chronic) Colon polyps (Resolved) Diverticular disease (Chronic) Foot pain (Chronic 2013) Gout (Chronic) Hayfever (Chronic) Hearing loss (Chronic) Measles (Resolved) Mumps (Resolved) Surgical History Anesthesia (Resolved) History of bladder surgery (Resolved 2007) History of cataract extraction with lens replacement (Acute) Status post appendectomy (Resolved 1964) Status post hernia repair (Resolved 1964) Family History Father Heart disease Mother Cancer Brother No problems noted. Sister No problems noted. Social History household members: spouse Smoking Status: Former smoker Smoking Status: Former smoker alcohol intake frequency: 0-2 drinks per day Substance Use Type: does not use Exam Initial Vital Signs Initial Vital Signs: Vital Signs Temperature 97.3 F L 12/17/19 10:51 Pulse Rate 73 12/17/19 10:51 Respiratory Rate 16 12/17/19 10:51 Blood Pressure 173/85 H 12/17/19 10:51 Pulse Oximetry 97 12/17/19 10:51 Const General: cooperative, comfortable, well developed and well groomed Limitations: mental status not altered HENMT Head: normal to inspection and normocephalic Eyes Pupils: PERRL EOM: EOM intact bilaterally Resp Effort & Inspection: normal respiratory effort Auscultation: clear to auscultation bilaterally Cardio Rate: regular rate Rhythm: regular rhythm GI Inspection: non-distended Palpation: soft and No tender Skin Lesions: no lesions Rashes: no rashes Neuro General: patient alert, patient awake and patient oriented x3 Cranial Nerves: CN's II-XI intact bilaterally Cognition: normal cognition Speech: speech normal Gait: normal gait Motor: muscle tone normal throughout Sensory Exam: no sensory deficits noted Coordination: [id number] test normal Extrem General: normal to inspection and capillary refill normal Psych Appearance: grossly normal and well kempt Scores GCS Feli coma scale eye opening: Spontaneous Feli coma scale verbal response: Orientated Feli coma scale motor response: Obey commands Feli coma scale total score: 15 NIH Stroke Scale Level of Conciousness: Alert, keenly responsive Ask month/age: Answers both questions correctly. Open/close eyes, close hand: Performs both tasks correctly Best gaze horizontal: Normal Visual miles: No visual loss Facial palsy: Normal symetrical movement Left arm drift: No drift for full 10 sec Right arm drift: No drift for full 10 sec Left leg drift: No drift for full 10 sec Right leg drift: No drift for full 10 sec Limb ataxia: Absent Sensory on face/arms/legs: Normal, no sensory loss Best language: No aphasia, normal Dysarthria: Normal Extinction or inattention: No abnormality Total NIH Stroke scale score: 0 Course Orders Ordered: ED Orders 12/17/19 10:51 EKG-12 Lead Stat 12/17/19 10:52 Urinalysis and Microscopic Stat Urine Drug Screen, Rapid Stat 12/17/19 10:54 CT Stroke Stat 12/17/19 10:55 Complete Blood Count AUTO DIFF Stat Comprehensive Metabolic Panel Stat Ethanol (ETOH) Stat Lipase Stat Partial Thromboplastin Time Stat Prothrombin Time INR Stat Salicylate Stat Thyroid Stimulating Hormone Stat 12/17/19 11:25 Ammonia (NH3) Stat Vital Signs Vital signs: Vital Signs - 8 hr 12/17/19 10:51 12/17/19 11:30 12/17/19 12:00 Temperature 97.3 F L Pulse Rate 73 65 61 Respiratory Rate 16 19 18 Blood Pressure 173/85 H Blood Pressure [Left Arm] 151/80 H 141/83 H Pulse Oximetry 97 96 96 12/17/19 12:30 Temperature Pulse Rate 62 Respiratory Rate 22 Blood Pressure Blood Pressure [Left Arm] 137/82 Pulse Oximetry 96 MDM - Neuro Symptoms/Deficit Medical Records Attestation: I reviewed the patient's medical records. Lab Data Attestation: I reviewed the patient's lab results. Result diagrams: 12/17/19 10:55 12/17/19 10:55 Labs: Lab Results 06/04/20 06/04/20 06/04/20 Range/Units 10:55 10:55 10:55 WBC 8.6 (4.5-11.0) X10^3/uL RBC 4.84 (4.5-5.9) X10^6/uL Hgb 15.0 (13.5-17.5) g/dL Hct 43.6 (41-53) % MCV 90.2 (80-100) fL MCH 31.0 (26-34) PG MCHC 34.4 (30-36) % RDW 13.4 (11.6-14.8) % Plt Count 185 (150-400) X10^3/uL Neut % (Auto) 66.9 (50-75) % Lymph % (Auto) 18.4 L (25-40) % [place] % (Auto) 12.0 (3-14) % Eos % (Auto) 2.1 (2-4) % Baso % (Auto) 0.6 (0-2) % Neut # (Auto) 5800 (4513-4785) /uL Lymph # (Auto) 1600 (4612-5002) /uL [place] # (Auto) 1000 H (0-900) /uL Eos # (Auto) 200 (0-450) /uL Baso # (Auto) 100 (0-100) /uL PT 11.4 (10.1-12.7) SECONDS INR 1.0 (0.9-1.3) APTT 32 (26.4-36.2) SECONDS Sodium 140 (137-145) mmol/L Potassium 4.0 (3.4-5.1) mmol/L Chloride 110 H (98-107) mmol/L Carbon Dioxide 20 L (22-32) mmol/L BUN 24 H (9-20) mg/dL Creatinine 1.22 (0.66-1.25) mg/dL Estimated GFR 57.6 L (>60) mL/min BUN/Creatinine Ratio 19.7 (6-22) Glucose 129 H (80-110) mg/dL Calcium 9.3 (8.4-10.2) mg/dL Total Bilirubin 0.7 (0.2-1.3) mg/dL AST 28 (17-59) IU/L ALT 22 (<50) IU/L Alkaline Phosphatase 73 (38-126) U/L Ammonia (9-30) umol/L Total Protein 7.6 (6.3-8.2) g/dL Albumin 4.5 (3.5-5.0) g/dL Globulin 3.1 (1.7-4.1) g/dL Albumin/Globulin Ratio 1.5 (1.0-2.8) Lipase 49 (23-300) U/L TSH (0.47-4.68) uIU/mL Salicylates 1.5 (<20) mg/dL Ethyl Alcohol < 10 ( - 10) mg/dL 12/17/19 12/17/19 Range/Units 10:55 11:25 WBC (4.5-11.0) X10^3/uL RBC (4.5-5.9) X10^6/uL Hgb (13.5-17.5) g/dL Hct (41-53) % MCV (80-100) fL MCH (26-34) PG MCHC (30-36) % RDW (11.6-14.8) % Plt Count (150-400) X10^3/uL Neut % (Auto) (50-75) % Lymph % (Auto) (25-40) % [place] % (Auto) (3-14) % Eos % (Auto) (2-4) % Baso % (Auto) (0-2) % Neut # (Auto) (6520-3255) /uL Lymph # (Auto) (8983-7131) /uL Schoolcraft # (Auto) (0-900) /uL Eos # (Auto) (0-450) /uL Baso # (Auto) (0-100) /uL PT (10.1-12.7) SECONDS INR (0.9-1.3) APTT (26.4-36.2) SECONDS Sodium (137-145) mmol/L Potassium (3.4-5.1) mmol/L Chloride (98-107) mmol/L Carbon Dioxide (22-32) mmol/L BUN (9-20) mg/dL Creatinine (0.66-1.25) mg/dL Estimated GFR (>60) mL/min BUN/Creatinine Ratio (6-22) Glucose (80-110) mg/dL Calcium (8.4-10.2) mg/dL Total Bilirubin (0.2-1.3) mg/dL AST (17-59) IU/L ALT (<50) IU/L Alkaline Phosphatase (38-126) U/L Ammonia < 9 L (9-30) umol/L Total Protein (6.3-8.2) g/dL Albumin (3.5-5.0) g/dL Globulin (1.7-4.1) g/dL Albumin/Globulin Ratio (1.0-2.8) Lipase (23-300) U/L TSH 2.24 (0.47-4.68) uIU/mL Salicylates (<20) mg/dL Ethyl Alcohol ( - 10) mg/dL Point of Care Testing Glucose POC [address] scan - head: Radiologist's Impression: [address] [address] [address] Scan Report Signed Patient: Osbaldo Dumont RMR#: [id number] : 2Acct:[id number] Age/Sex: 79 / MDate of Service: 12/17/19 Loc: ED Accession Number: [id number] Procedure: CT Stroke Ordering Provider: Gunner Mendoza D.O. PROCEDURE: CT HEAD/BRAIN WO CON INDICATIONS: Confusion, word-finding issues TECHNIQUE: Noncontrast 4.5 mm thick angled axial sections acquired from the foramen magnum to the vertex, with coronal and sagittal reformats. For radiation dose reduction, the following was used: automated exposure control, adjustment of mA and/or kV according to patient size. COMPARISON: [facility], CT, CT HEAD/BRAIN WO CON, 11/04/2019, 15:48. FINDINGS: Image quality: Excellent. CSF spaces: Basal cisterns are patent. No extra-axial fluid collections. The ventricles are symmetric in size and shape. Brain: No intracranial bleeds or masses. There is cerebral volume loss for age, with resultant ventricular and sulcal prominence. There are periventricular and deep white matter chronic small vessel ischemic changes. There is intracranial internal carotid artery atherosclerosis. Skull and face: Calvarium and visualized facial bones appear intact, without suspicious lesions. Sinuses: Visualized sinuses and mastoids are clear. IMPRESSION: No CT evidence of acute intracranial pathology. No significant changes from previous study. Dictated by: Jorge Holguin M.D. on 12/17/2019 at 11:09 Approved by: Jorge Holguin M.D. on 12/17/2019 at 11:10 ECG Data Attestation: I personally reviewed and interpreted this ECG as follows: Prior ECG tracings: not available for review Interpretation: Sinus rhythm Ventricular rate is 64 Left axis deviation Left bundle-branch block QRS 172 milliseconds MDM Narrative Medical decision making narrative: Patient did take an aspirin prior to arrival. Had a NIH score of 0. Head CT is unremarkable. Labs are unremarkable. EKG is a left bundle-branch block. No prior EKGs to compare this to. I did discuss the concern about TIA with the patient. We did discuss admitting to the hospital for further workup to prevent potential future TIAs verses CVA. I did discuss the risks and benefits of being admitted. Patient stated that he would like to go home and get these studies done as an outpatient. He states he wants to call his primary provider. I informed him that all of the studies that we would do as an inpatient could be performed as an outpatient however the timing would be several days/weeks down the road in potentially there is an issue that we could intervene on in order to prevent of CVA which could be devastating or even deadly. Patient expressed understanding this. Had a GCS of 15. Was alert oriented x3. In my opinion have the capacity to make decisions. Was not clinically intoxicated. No focal neuro deficits during this discussion. Also prior to this discussion the patient's states that she thinks that he is completely back to baseline. Patient was informed that he should return to the emergency department at any point for new or worsening symptoms. He is going to contact his primary provider later today for follow-up. He expressed understanding. Discharge Plan Departure Patient Disposition: Home Clinical Impression: Transient cerebral ischemia Instructions: DI for Transient Ischemic Attack Activity Restrictions/Additional Instructions: Despite our conversation you did decide to be discharged home. I recommend that you contact your primary provider later this afternoon to discuss workup and further evaluation. Please return to the emergency department for any new or worsening symptoms Prescriptions: No Action losartan 25 MG tablet 25 mg PO QDAY Qty: 90 RF: 3 probenecid 500 mg tablet 500 mg PO .QD RF: 0 aspirin 325 mg tablet 162.5 mg PO DAILY RF: 0 amoxicillin-pot clavulanate [Augmentin] 875-125 mg tablet 1 tab PO BID Qty: 20 RF: 0 Referrals: Quinn Dockery MD [Primary Care Provider] -
[2019-12-17 11:11] LABS: Add Manual Diff / Slide Review NO; Basophils Absolute Auto 100 /uL (0-100); Basophils Percent Auto 0.6 % (0-2); Eosinophils Absolute Auto 200 /uL (0-450); Eosinophils Percent Auto 2.1 % (2-4); Hematocrit 43.6 % (41-53); Lymphocytes Absolute Auto 1600 /uL (1100-4500); Lymphocytes Percent Auto 18.4 % (25-40); Mean Corpuscular HGB Conc 34.4 % (30-36); Mean Corpuscular Volume 90.2 fL (80-100); Monocytes Absolute Auto 1000 /uL (0-900); Neutrophils Absolute Auto 5800 /uL (1500-7000); Neutrophils Percent Auto 66.9 % (50-75); Platelet Count 185 X10^3/uL (150-400); Red Blood Cell Count 4.84 X10^6/uL (4.5-5.9); Red Cell Distribution Width 13.4 % (11.6-14.8); White Blood Cell Count 8.6 X10^3/uL (4.5-11.0)
[2019-12-17 11:17] LABS: Prothrombin Time 11.4 SECONDS (10.1-12.7)
[2019-12-17 11:20] LABS: PTT Partial Thromboplastin Tim 32 SECONDS (26.4-36.2)
[2019-12-17 11:22] LABS: Alanine Aminotransferase 22 IU/L (<50); Albumin 4.5 g/dL (3.5-5.0); Albumin Globulin Ratio 1.5 (1.0-2.8); Alkaline Phosphatase 73 U/L (38-126); Aspartate Aminotransferase 28 IU/L (17-59); BUN Creatinine Ratio 19.7 (6-22); Bilirubin Total 0.7 mg/dL (0.2-1.3); Blood Urea Nitrogen 24 mg/dL (9-20); Calcium 9.3 mg/dL (8.4-10.2); Carbon Dioxide 20 mmol/L (22-32); Chloride 110 mmol/L (98-107); Estimated Glomerular Filt Rate 57.6 mL/min (>60); Ethanol (ETOH) < 10 mg/dL; Globulin 3.1 g/dL (1.7-4.1); Glucose 129 mg/dL (80-110); HEMOLYSIS 17 (0-50); Lipase 49 U/L (23-300); Salicylate 1.5 mg/dL (<20); Sodium 140 mmol/L (137-145); Total Protein 7.6 g/dL (6.3-8.2)
[2019-12-17 11:30] VITALS: BP 151/80; PULSE 65; RESP 19; O2SAT 96
[2019-12-17 11:43] LABS: Ammonia (NH3) < 9 umol/L (9-30)
--- NOTE | 2019-12-17 11:52 | PC.NURSE ---
Patient unable to state current month. Said he was 80 when asked his age (79). states she is not sure that he would know what month it is at his baseline.
[2019-12-17 11:57] LABS: Thyroid Stimulating Hormone 2.24 uIU/mL (0.47-4.68)
[2019-12-17 12:00] VITALS: BP 141/83; PULSE 61; RESP 18; O2SAT 96
[2019-12-17 12:30] VITALS: BP 137/82; PULSE 62; RESP 22; O2SAT 96
[2019-12-17 13:12] VITALS: BP 156/75; PULSE 62; RESP 16; O2SAT 97
== END 2019-12-17 13:18 | disposition home or self-care (01) ==
PROVIDERS: Emergency Provider Emergency Medicine; Family Provider Family Medicine; PCP Family Medicine
DX: G45.9 Transient cerebral ischemic attack, unspecified (principal); I44.7 Left bundle-branch block, unspecified
CPT/HCPCS: 36415; 70450; 80053; 80320; 80329; 82140; 82962; 83690; 84443; 85025; 85610; 85730; 93005; 93010; 99284; 99285; G0480

== ENCOUNTER → 2019-12-28 07:56 | Outpatient (CLI) | payer MEDICARE, SELFPAY ==
--- NOTE | 2019-12-28 07:58 | DI.US.S_ITS ---
PROCEDURE: US CAROTID DOPPLER BI INDICATIONS: TIA TECHNIQUE: Color and pulse Doppler interrogation was performed of both carotid systems, with image documentation and velocity measurements. COMPARISON: [facility], US, CAROTID ARTERY DOPPLER BILAT, 01/24/2012, 10:46. [facility], US, CAROTID ARTERY DOPPLER BILAT, 03/02/2016, 13:51. [facility], US, US CAROTID DOPPLER BI, 02/19/2019, 10:01. [facility], MR, MR STROKE, 12/28/2019, 9:30. [facility], CT, CT HEAD/BRAIN WO CON, 12/17/2019, 10:49. FINDINGS: Stenosis calculations are based on SRU (Society of Radiologists in Ultrasound) criteria. The flow velocities and the arterial waveforms are normal within both carotid arterial systems. Atherosclerotic plaque is seen on both sides. The estimated degree of internal carotid artery stenosis is less than 50%. Antegrade flow is confirmed within both vertebral arteries. IMPRESSION: No hemodynamically significant stenosis is seen. No significant change from the prior. Atherosclerotic plaque is noted bilaterally. Dictated by: Otoniel Donahue M.D. on 12/28/2019 at 10:17 Approved by: Otoniel Donahue M.D. on 12/28/2019 at 10:18
--- NOTE | 2019-12-28 07:58 | DI.MRI.S_ITS ---
PROCEDURE: MR STROKE Pre- and post-contrast brain MRI, non-contrast brain MR angiogram, pre- and postcontrast neck MR angiogram INDICATIONS: TIA TECHNIQUE: Brain: Noncontrast axial T1 spin echo, axial T2 fast spin echo, sagittal and axial FLAIR, coronal T2 fast spin echo, axial gradient echo, axial diffusion and ADC through the brain. After the administration of contrast, axial 3D VIBE of the cranial vasculature and brain. Brain MRA: Non-contrast 3-D time of flight MR angiogram, with multiple jgbkrcq-jmnyvpyvg-kboshbwnkw (MIP) reformats performed. Neck MRA: Axial and sagittal TruFISP through the neck. Coronal dynamic MR angiogram during administration of contrast in the arterial and venous phases, with 3-dimenstional naqtcds-tafnvxgyd-pvuzhvpxeh (MIP) reformats constructed from subtraction images. COMPARISON: [facility], MR, BRAIN WITH AND WITHOUT CONTRAS, 10/25/2009, 11:31. [facility], CT, CT HEAD/BRAIN WO CON, 12/17/2019, 10:49. [facility], US, US CAROTID DOPPLER BI, 12/28/2019, 9:08. [facility], CT, CT HEAD/BRAIN WO CON, 11/04/2019, 15:48. FINDINGS: Image quality: Diagnostic, with note made of motion artifact. BRAIN: CSF spaces: Ventricles are normal in size and shape. Basal cisterns are patent. No extra-axial fluid collections. Brain: No intracranial bleeds or mass effects. Coto-white matter interface is normal. Brain parenchymal volume loss is seen. Chronic small vessel ischemic change can be seen. Diffusion weighted images show no acute ischemic insults. Brainstem appears normal. Normal intravascular flow voids are present. No abnormal intracranial enhancement. Skull and face: Calvarial marrow signal is normal. Orbits appear normal. Note is made of bilateral lens replacements. Sinuses: Sinuses and mastoids are clear. BRAIN MR ANGIOGRAM: Anterior circulation: Intracranial internal carotid arteries are normal in size and enhancement. There is a hypoplastic left A1 segment, with a corresponding robust right A1 segment. This is considered to be a normal developmental variant of the [place], of typically no clinical consequence. The flow within the paired anterior cerebral arteries is otherwise normal and symmetric. The flow within the middle cerebral arteries is normal and symmetric. The anterior communicating artery is seen. No stenoses, occlusions, or aneurysms. Posterior circulation: There is focal narrowing seen in the right V4 segment, approximately 50%. The left V4 segment is unremarkable. There is a normal appearing basilar artery. The flow within the posterior cerebral arteries is normal and symmetric. No stenoses, occlusions, or aneurysms. NECK MR ANGIOGRAM: Carotids: Great vessels demonstrate a conventional anatomy as they arise from the aortic arch. The origins of the common carotid arteries appear patent. The calibers and courses of both common carotid arteries are normal. The bifurcation regions appear normal bilaterally. The internal carotid arteries demonstrate normal course and caliber. Posterior circulation: The origins of the vertebral arteries appear patent. More superior portions of both vertebral arteries demonstrate normal course and caliber, and join to form a normal appearing basilar artery. Miscellaneous: Subclavian arteries appear patent. Pre-contrast images through the neck show no soft tissue abnormalities. IMPRESSION: BRAIN MRI: No findings of acute or subacute infarction can be seen. Note is made of age-appropriate brain parenchymal volume loss and chronic small vessel ischemic changes. BRAIN MR ANGIOGRAM: Approximately 50% narrowing seen in the right V4 segment. 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 NECK MR ANGIOGRAM: No significant carotid stenosis can be seen. No significant abnormality can be seen involving the proximal vertebral arteries. Dictated by: Otoniel Donahue M.D. on 12/28/2019 at 10:09 Approved by: Otoniel Donahue M.D. on 12/28/2019 at 10:17
--- NOTE | 2019-12-28 08:10 | DI.ECHO.S_ITS ---
Version 2 Echocardiogram Report + + :Name: DOUGLAS STAUFFER Study Date: 12/28/2019 Height: 70 in : :[facility] Weight: 195 lb : : Gender: Male BSA: 2.1 m2 : :: 1940 Age: 79 yrs BP: 110/63 mmHg: :Reason For Study: TIA : :Ordering Physician: Dr. Ball : :[place] Performed By: Caterina Page : + + Interpretation Summary The left ventricle is normal in size. Left ventricular ejection fraction is estimated to be 40 +/- 5%. Compared to the prior exam, the left ventricular function is reduced. There is a hypokinesis of septum as well as inferior wall. Inferior wall hypokinesis appears to be new. The right ventricle is mildly dilated. The right ventricular systolic function is normal. The aortic valve is mildly calcified. There is mildly reduced leaflet mobility. There is no hemodynamically significant valvular aortic stenosis. Pulmonary artery pressures cannot be estimated because of the lack of a measurable TR jet velocity. Doppler findings across pulmonary valve suggest pulmonary hypertension. The IVC is of normal diameter and collapses greater than 50% with a sniff. This suggests a low right atrial pressure of 3 mm Hg. Mild atherosclerotic plaque(s) in the aortic arch. Procedure: A two-dimensional transthoracic echocardiogram with color flow and Doppler was performed. The study quality was technically adequate. Comparison is made with the echocardiogram of 04/16/2018. The heart rate ranged between 60-65 bpm during the study. The patient had a bundle branch block rhythm during the exam. The patient was in normal sinus rhythm during the exam. Left Ventricle: The left ventricle is normal in size. Proximal septal thickening is noted. Left ventricular ejection fraction is estimated to be 40 +/- 5%. Compared to the prior exam, the left ventricular function is reduced. Septal motion is consistent with conduction abnormality. There is a significant dyssynchronous contraction pattern due to the paced rhythm. There is a hypokinesis of septum as well as inferior wall. Inferior wall hypokinesis appears to be new. MV E/A: 0.57 Med Peak E' Walker: 4.7 cm/sec E/E' med: 12. Right Ventricle: The right ventricle is mildly dilated. The right ventricular systolic function is normal. Atria: The left atrium is moderately dilated. The left atrium has mildly increased in size since the prior echo exam. Right atrial size is normal. There is no Doppler evidence for an interatrial shunt. Mitral Valve: There is moderate mitral annular calcification. No significant mitral valve stenosis. There is trace mitral regurgitation. Aortic Valve: The aortic valve is trileaflet. The aortic valve is mildly calcified. There is mildly reduced leaflet mobility. The peak aortic velocity is 2.0 m/sec. The peak aortic velocity on the previous exam was 2.1 m/sec. The calculated aortic valve area is 1.5 cm2. The aortic valve mean gradient is 9.3 mmHg. There is no hemodynamically significant valvular aortic stenosis. No aortic regurgitation is present. Tricuspid Valve: The tricuspid valve is normal. Pulmonary artery pressures cannot be estimated because of the lack of a measurable TR jet velocity. There is trace tricuspid regurgitation. Doppler findings across pulmonary valve suggest pulmonary hypertension. Pulmonic Valve: The pulmonic valve is not well seen, but is grossly normal. There is trace pulmonic regurgitation. Great Vessels: The aortic root is normal size. The ascending aorta is at the upper limits of normal in size. Mild atherosclerotic plaque(s) in the aortic arch. The pulmonary artery is normal size. The IVC is of normal diameter and collapses greater than 50% with a sniff. This suggests a low right atrial pressure of 3 mm Hg. Pericardium/ Pleura There is no pericardial effusion. There is no pleural effusion. MMode/2D Measurements & Calculations LVIDd: 4.9 cm LVOT diam: 2.2 cm LVIDs: 3.4 cm Ao root diam: 3.9 cm FS: 29.1 % asc Aorta Diam: 3.3 cm EPSS: 0.60 cm IVSd: 0.90 cm LVPWd: 0.68 cm LV hidalgo. diameter/BSA (cm/m^2): 2.4 LV sys. diameter/BSA (cm/m^2): 1.7 LA A2 area: 26.9 cm2 RA long axis: 4.9 cm LA A4 area: 23.9 cm2 RA area: 17.0 cm2 LA length (vol): 6.3 cm RA vol: 50.3 ml LA vol: 86.4 ml RA : 24.3 ml/m2 LA vol index: 41.9 ml/m2 RVD1 (basal): 4.9 cm TAPSE: 2.2 cm Doppler Measurements & Calculations Ao V2 max: 196.5 cm/sec LVOT Max Walker: 77.5 cm/sec Ao V2 mean: 146.0 cm/sec LV V1 max P.4 mmHg Ao max P.4 mmHg LV V1 VTI: 14.6 cm Ao mean P.3 mmHg JOURDAN(I,D): 1.4 cm2 Ao V2 VTI: 41.7 cm JOURDAN(V,D): 1.5 cm2 sev ratio: 0.35 JOURDAN indexed to BSA (cm^2/m^2): 0.66 MV E max walker: 59.1 cm/sec PA V2 max: 90.6 cm/sec MV A max walker: 104.5 cm/sec PA V2 mean: 55.1 cm/sec MV E/A: 0.57 PA mean P.3 mmHg Med Peak E' Walker: 4.7 cm/sec PA Accel Time: 0.07 sec E/E' med: 12.6 Lat Peak E' Walker: 8.4 cm/sec E/E' lat: 7.0 E/e' average: 9.8 MV dec time: 0.20 sec SV(LVOT): 56.7 ml Reading Physician:10:42 AM
== END ==
PROVIDERS: Family Provider Family Medicine; PCP Family Medicine; Referring Provider Family Medicine; Visit Provider Family Medicine
DX: G45.9 Transient cerebral ischemic attack, unspecified (principal)
CPT/HCPCS: 70548; 70553; 93306; 93880

== ENCOUNTER → 2020-01-26 10:34 | Outpatient (CLI) | payer MEDICARE, SELFPAY ==
[2020-01-27 08:17] LABS: COVID19 Sendout Not Detected (Not Detect)
== END ==
PROVIDERS: Family Provider Family Medicine; PCP Family Medicine; Visit Provider Physician Assistant
DX: Z01.812 Encounter for preprocedural laboratory examination (principal)
CPT/HCPCS: 87635

== ENCOUNTER → 2020-01-29 07:36 | Outpatient (CLI) | payer MEDICARE, SELFPAY ==
--- NOTE | 2020-01-30 04:28 | DI.NM.S_ITS ---
DATE OF SERVICE: 01/29/2020 PROCEDURE: Lexiscan perfusion study. INDICATION: Coronary artery disease, underlying left bundle branch block, LV dysfunction, hypertension and hyperlipidemia RADIOPHARMACEUTICAL: 24.6 millicurie technetium-99m Myoview IV was injected at its stress and 12.3 millicurie technetium-99m Myoview IV was injected at rest. It is a one-day protocol. CARDIAC STRESS: The patient underwent IV Lexiscan perfusion study under the supervision of an attending staff using standard IV Lexiscan protocol. The patient remained hemodynamically stable. Baseline rhythm was sinus with underlying left bundle branch block. During stress, no convincing ischemic changes. No symptoms were reported. RAW DATA: There is increased subdiaphragmatic activity. GATED STUDY: Resting LV ejection fraction 57 and stress LV ejection fraction 61 percent. I do not see any significant wall motion abnormalities. Resting end- diastolic volume 127 mL. Lung/heart ratio 0.41, which is within normal limits. On visual inspection, no significant transient ischemic dilatation. MYOCARDIAL PERFUSION SCAN: Stress supine, resting supine and stress prone images were compared to each other. Stress supine and resting supine images revealed moderate-size, mild to moderately decreased perfusion of inferior wall, inferior apex, distal anterior wall, as well as distal anterior septum, which got significantly improved during prone images. However, prone images remain have mildly decreased perfusion of the distal anterior wall, distal anterior septum, as well as minimal inferior apical defect. No obvious reversible ischemia. CONCLUSION: 1. No obvious reversible ischemia. 2. The patient has a predominantly fixed, small size mildly decreased perfusion of distal anterior wall, distal anterior septum and minimally decreased perfusion of inferior apex. The patient has underlying left bundle branch block which can create that kind of perfusion defect. The patient had a perfusion study in Nov, 2012 and that time he also had an almost similar perfusion defect. No significant wall motion abnormalities. LV function is preserved. Hence, most likely we are dealing with an artifact, however, one cannot rule out the possibility of a small nontransmural myocardial infarction of distal anterior wall, distal anterior septum. Osbaldo Dumont - TERRENCE/morenita/erica doc#: [id number]/job#: [id number] dd: 01/29/2020 17:11:00 dt: 01/30/2020 04:03:00 DICTATING MD/COPIES TO: Luz Marina Soto MD COPIES MNE: PRADEEP;
== END ==
PROVIDERS: Family Provider Family Medicine; PCP Family Medicine; Referring Provider Nurse Practitioner; Visit Provider Nurse Practitioner
DX: I51.9 Heart disease, unspecified (principal); I25.10 Atherosclerotic heart disease of native coronary artery without angina pectoris; I44.7 Left bundle-branch block, unspecified; I10 Essential (primary) hypertension; E78.5 Hyperlipidemia, unspecified
CPT/HCPCS: 78452; 93017; A9502; J2785

== ENCOUNTER → 2020-02-17 08:07 | Outpatient (CLI) | payer MEDICARE, SELFPAY ==
[2020-02-17 09:23] LABS: Add Manual Diff / Slide Review NO; Basophils Absolute Auto 0 /uL (0-100); Basophils Percent Auto 0.5 % (0-2); Eosinophils Absolute Auto 300 /uL (0-450); Eosinophils Percent Auto 3.5 % (2-4); Hematocrit 42.9 % (41-53); Hemoglobin 14.3 g/dL (13.5-17.5); Lymphocytes Absolute Auto 1700 /uL (1100-4500); Lymphocytes Percent Auto 19.2 % (25-40); Mean Corpuscular HGB Conc 33.2 % (30-36); Mean Corpuscular Hemoglobin 30.3 PG (26-34); Mean Corpuscular Volume 91.3 fL (80-100); Monocytes Absolute Auto 1100 /uL (0-900); Monocytes Percent Auto 12.1 % (3-14); Neutrophils Absolute Auto 5800 /uL (1500-7000); Neutrophils Percent Auto 64.7 % (50-75); Platelet Count 218 X10^3/uL (150-400); Red Cell Distribution Width 13.9 % (11.6-14.8); White Blood Cell Count 8.9 X10^3/uL (4.5-11.0)
[2020-02-17 09:34] LABS: Alanine Aminotransferase 25 IU/L (<50); Albumin 4.3 g/dL (3.5-5.0); Albumin Globulin Ratio 1.6 (1.0-2.8); Alkaline Phosphatase 69 U/L (38-126); Aspartate Aminotransferase 26 IU/L (17-59); BUN Creatinine Ratio 24.8 (6-22); Bilirubin Total 0.6 mg/dL (0.2-1.3); Blood Urea Nitrogen 35 mg/dL (9-20); Calcium 9.4 mg/dL (8.4-10.2); Carbon Dioxide 22 mmol/L (22-32); Chloride 110 mmol/L (98-107); Cholesterol 136 mg/dL (140-199); Estimated Glomerular Filt Rate 48.7 mL/min (>60); Globulin 2.7 g/dL (1.7-4.1); Glucose 98 mg/dL (80-110); HDL Cholesterol 38 mg/dL (40-60); HEMOLYSIS < 15 (0-50); LDL Cholesterol Calculated 75 mg/dL (<100); Potassium 4.6 mmol/L (3.4-5.1); Sodium 141 mmol/L (137-145); Triglycerides 117 mg/dL (35-150)
[2020-02-17 10:01] LABS: Prostate Specific Antigen Scrn 0.295 ng/mL (0.1-4.0)
== END ==
PROVIDERS: Family Provider Family Medicine; PCP Family Medicine; Referring Provider Family Medicine; Visit Provider Family Medicine
DX: E78.2 Mixed hyperlipidemia (principal); Z12.5 Encounter for screening for malignant neoplasm of prostate
CPT/HCPCS: 36415; 80053; 80061; 85025; G0103

== ENCOUNTER → 2020-11-21 07:07 | Outpatient (CLI) | payer MEDICARE, SELFPAY ==
[2020-11-21 08:11] LABS: Add Manual Diff / Slide Review NO; Basophils Absolute Auto 100 /uL (0-100); Basophils Percent Auto 0.8 % (0-2); Eosinophils Absolute Auto 300 /uL (0-450); Eosinophils Percent Auto 3.5 % (2-4); Hematocrit 43.6 % (41-53); Hemoglobin 14.7 g/dL (13.5-17.5); Lymphocytes Absolute Auto 1700 /uL (1100-4500); Lymphocytes Percent Auto 22.1 % (25-40); Mean Corpuscular HGB Conc 33.8 % (30-36); Mean Corpuscular Hemoglobin 30.6 PG (26-34); Mean Corpuscular Volume 90.5 fL (80-100); Monocytes Absolute Auto 1000 /uL (0-900); Monocytes Percent Auto 12.5 % (3-14); Neutrophils Absolute Auto 4700 /uL (1500-7000); Neutrophils Percent Auto 61.1 % (50-75); Platelet Count 191 X10^3/uL (150-400); Red Blood Cell Count 4.82 X10^6/uL (4.5-5.9); Red Cell Distribution Width 13.6 % (11.6-14.8); White Blood Cell Count 7.7 X10^3/uL (4.5-11.0)
[2020-11-21 08:39] LABS: Alanine Aminotransferase 23 IU/L (<50); Albumin 3.8 g/dL (3.5-5.0); Albumin Globulin Ratio 1.3 (1.0-2.8); Alkaline Phosphatase 74 U/L (38-126); Aspartate Aminotransferase 25 IU/L (17-59); BUN Creatinine Ratio 20.3 (6-22); Bilirubin Total 0.4 mg/dL (0.2-1.3); Blood Urea Nitrogen 24 mg/dL (9-20); Carbon Dioxide 21 mmol/L (22-32); Chloride 109 mmol/L (98-107); Estimated Glomerular Filt Rate 59.7 mL/min (>60); Globulin 2.9 g/dL (1.7-4.1); Glucose 115 mg/dL (80-110); HEMOLYSIS < 15 (0-50); Potassium 4.3 mmol/L (3.4-5.1); Sodium 139 mmol/L (137-145); Total Protein 6.7 g/dL (6.3-8.2)
[2020-11-21 08:46] LABS: Creatinine Urine Random 82.2 mg/dL
[2020-11-21 09:01] LABS: Microalbumin Urine Random < 0.6 mg/dL (0-1.6)
[2020-11-21 09:02] LABS: Vitamin D 25 Hydroxy (D3) 43.4 ng/mL (30.0-100.0)
[2020-11-22 12:53] LABS: Calcium 9.1 mg/dL (8.6-10.2); Parathyroid Hormone, Intact 45 pg/mL (15-65)
== END ==
PROVIDERS: Family Provider Family Medicine; PCP Family Medicine; Referring Provider Internal Medicine Cardiovascular Disease; Visit Provider Internal Medicine Cardiovascular Disease
DX: E78.5 Hyperlipidemia, unspecified (principal); R13.10 Dysphagia, unspecified; C67.9 Malignant neoplasm of bladder, unspecified; E78.2 Mixed hyperlipidemia; I10 Essential (primary) hypertension
CPT/HCPCS: 80053; 82043; 82306; 82310; 82570; 83970; 85025

== ENCOUNTER → 2021-02-22 07:36 | Outpatient (CLI) | payer MEDICARE, SELFPAY ==
[2021-02-22 08:28] LABS: Cholesterol 145 mg/dL (140-199); HDL Cholesterol 38 mg/dL (40-60); LDL Cholesterol Calculated 70 mg/dL (<100); Triglycerides 185 mg/dL (35-150)
== END ==
PROVIDERS: Family Provider Family Medicine; PCP Family Medicine; Referring Provider Family Medicine; Visit Provider Family Medicine
DX: E78.2 Mixed hyperlipidemia (principal); K22.4 Dyskinesia of esophagus
CPT/HCPCS: 36415; 80061; 84443

== ENCOUNTER → 2021-03-08 07:47 | Outpatient (CLI) | payer MEDICARE, SELFPAY ==
--- NOTE | 2021-03-08 | DI.RAD.S_ITS ---
PROCEDURE: XR CHEST 2V INDICATIONS: COUGH TECHNIQUE: 2 views of the chest were acquired. COMPARISON: [facility], , XR CHEST 2V, 04/07/2018, 9:25. [facility], CR, CHEST 2 VIEW, 11/05/2014, 8:31. FINDINGS: Surgical changes and devices: None. Lungs and pleura: Lungs are abnormal with a chronic interstitial prominence that appears slightly worsened at the right lung base when compared to prior imaging from March 2018 and October 2014. . No pleural effusions or pneumothorax. Mediastinum: Mediastinal contours are normal. Heart size is normal. Bones and chest wall: No suspicious bony abnormalities. Soft tissues appear unremarkable. IMPRESSION: Chronic interstitial prominence but without definite new superimposed pneumonia pattern. The interstitial prominence is slightly more prominent at the right lung base, and attention to this area on subsequent follow-up chest plain film imaging is warranted, if symptoms persist or worsen. Dictated by: Frnak German M.D. on 03/08/2021 at 8:24 Approved by: Frank German M.D. on 03/08/2021 at 8:25
== END ==
PROVIDERS: Family Provider Family Medicine; PCP Family Medicine; Referring Provider Otolaryngology; Visit Provider Otolaryngology
DX: R05 Cough (principal)
CPT/HCPCS: 71046

== ENCOUNTER → 2021-05-15 12:51 | Outpatient (CLI) | payer MEDICARE, SELFPAY ==
[2021-05-15 15:18] LABS: COVID19 -Nasal RAPID Negative (Negative)
== END ==
PROVIDERS: Family Provider Family Medicine; PCP Family Medicine; Visit Provider Nurse Practitioner Family
DX: Z20.822 Contact with and (suspected) exposure to COVID-19 (principal); Z01.812 Encounter for preprocedural laboratory examination
CPT/HCPCS: 87635; C9803

== ENCOUNTER 2021-05-16 07:00 | Day surgery (SDC) | payer MEDICARE, SELFPAY ==
--- NOTE | 2021-05-16 | PATH_ITS ---
[facility] Accession Number: [id number] . 01 Material submitted: . colon - TRANSVERSE COLON POLYP X3 . 01 Clinical history: . SDC . 02 Diagnosis: Transverse Colon Polyp x3: Portions of tubular adenoma x3. MRV 05/18/2021 1008 Local . 02 Electronically signed: . Tiffany London MD, Pathologist NPI- [id number] . 01 Gross description: . TRANSVERSE COLON POLYP X3: Received in formalin are 3 fragment(s) of [place], soft tissue measuring 0.5 x 0.4 x 0.3 cm to 0.3 x 0.3 x 0.2 cm submitted entirely in 1 cassette(s) /QBJ 05/17/2021 0710 Local . 02 Pathologist provided ICD-10: R15.9, K59.00, K63.5 . 02 CPT . 976675 Performed at: 01 [facility] [address], [place], [place] [id number] MD Ramón Mckeon MD Phone: [phone] Performed at: 02 [facility] [address] [place], [place] [id number] MD Merlene Welch MD Phone: [phone]
[2021-05-16 07:32] VITALS: BP 128/79; PULSE 72; RESP 18; TEMP 36.6; O2SAT 96; BMI 27.9
[2021-05-16] MEDS: SODIUM CHLORIDE 0.9% 1,000 ML 84 ML IV (07:46)
--- NOTE | 2021-05-16 08:17 | PM.HP.1 ---
History of Present Illness History of Present Illness Date Patient Seen: 05/16/21 Time Patient Seen: 08:17 Chief complaint: SDC Narrative: I reviewed my recent clinic note from May 01 no significant changes. Patient History Medical History Bladder cancer (2007) Cataract Chicken pox Chronic cough Colon polyps Diverticular disease Dysphonia Esophageal dysmotility Foot pain (2013) Gout Hayfever Hearing loss Measles Mumps Surgical History Anesthesia History of bladder surgery (2007) History of cataract extraction with lens replacement Status post appendectomy (1964) Status post hernia repair (1964) Family & Social History Family History Father Heart disease Mother Cancer Brother No problems noted. Sister No problems noted. Social History: household members spouse Tobacco & Substance use: Smoking Status Former smoker alcohol intake frequency 0-2 drinks per day Substance Use Type does not use Meds Home Medications and Allergies Home Medications Medication Instructions Recorded Confirmed Type aspirin 325 mg tablet 325 mg PO DAILY #30 tab 11/18/20 05/16/21 Rx atorvastatin 80 mg tablet See Rx Instructions .ROUTE 04/13/21 05/16/21 Rx .COMPLEX #90 tab metoprolol succinate 25 mg 12.5 mg PO DAILY #90 tab 04/13/21 05/16/21 Rx tablet,extended release 24 hr pantoprazole 40 mg tablet,delayed 40 mg PO BID #90 tab 04/13/21 05/16/21 Rx release (Protonix) probenecid 500 mg tablet See Rx Instructions .ROUTE 04/13/21 05/16/21 Rx .COMPLEX #180 tab Allergies Allergy/AdvReac Type Severity Reaction Status Date / Time No Known Drug Allergies Allergy Verified 02/15/21 15:40 Review of Systems Review of Systems ROS: Yes All systems reviewed with the patient and are negative except as otherwise documented Exam Vital Signs (past 8 hours): - 05/16/21 07:32 Temperature 97.8 F Pulse Rate 72 Respiratory Rate 18 Blood Pressure 128/79 Pulse Oximetry 96 Oxygen Delivery Method Room Air Const General: cooperative and comfortable Orientation: alert HENMT Head: normocephalic Ears: external ears normal Nose: external nose normal Face and sinus: normal facial exam Mouth: oral mucosae normal Eyes General: appearance normal, both eyes and all related structures Neck Neck: normal visual inspection Chest Chest: normal inspection of the chest Resp Effort & Inspection: normal respiratory effort Auscultation: clear to auscultation bilaterally Cardio Rate: regular rate Rhythm: regular rhythm Heart Sounds: no murmurs GI Inspection: normal to inspection Palpation: soft and No tender Auscultation: normal bowel sounds Skin General: no rashes or lesions noted and No jaundice Neuro General: patient alert and moves all extremities Cognition: normal cognition Speech: speech normal Extrem General: no pedal edema Psych Appearance: grossly normal Assessment & Plan Assessment & Plan narrative: Fecal incontinence personal history of colon polyps family history of colon cancer. Colonoscopy is pursued today. Time Spent With Patient Critical Care time: I spent a total of [] minutes of critical care time on this patient's care today; this time is exclusive of procedural time.
--- NOTE | 2021-05-16 08:19 | PM.PREOP ---
Pre-operative Note COVID-19 COVID-19 status: Negative Result date/Date tested (Pos, Neg/Pending): 05/15/21 Interval Note History & Physical reviewed/Exam performed by Physician: Yes Changes to H&P: No ASA Class (for procedural sedation): II
--- NOTE | 2021-05-16 08:47 | P.OP.COLON_ITS ---
Operative Date/Time/Diagnoses Date of procedure: 05/16/21 Time of procedure: 08:47 Pre-op diagnosis: Fecal incontinence personal history of colon polyps family history of colon cancer Post-op diagnosis: same Procedure & Clinicians Study performed: Colonoscopy with hot snare polypectomy cold snare polypectomy and cold forceps polypectomy Same procedure as scheduled: Yes Indications: Fecal incontinence personal history of colon polyps the family history of colon cancer Surgeon: Russel Mcgrath Procedure Notes SCOAP/Timeout: Done Procedure in detail: After the risks and benefits were explained, written and verbal informed consent was obtained. The patient was brought into the procedure room and placed into the left lateral decubitus position. 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 Digital rectal examination was accomplished. The scope was introduced into the patient and advanced under direct visualization to the cecum as identified by the appendiceal orifice and ileocecal valve. The scope was slowly withdrawn to carefully examine the mucosa for any defects or lesions. Comprehensive imaging was accomplished throughout the rectum including the dentate line. The colon was decompressed, the scope was then removed from the patient who tolerated the procedure well. Bowel prep suboptimal fair at best with irrigation. Many areas were coated with solid and semi solid stool that could not be fully cleansed even with irrigation. Adult colonoscope Scope withdrawal time: 9 minutes Sedation minutes: 19 Complications: none Impression: There were scattered diverticula in the sigmoid. The transverse region there were 3 polyps seen and removed. Two sessile polyps were 6-8 mm in diameter and removed with hot snare. The smaller 5 mm polyp was removed with cold snare and then cleaned up with cold forceps. Within the limitations of bowel prep I did not see any mass lesions or other pathology. Prior to sedation digital rectal examination was accomplished. The patient had excellent normal anal sphincter tone no mass lesions detected digitally nor visually upon close endoscopic inspection. Endoscopic diagnosis 1. Diverticulosis 2. Suboptimal bowel prep 3. Colon polyps Post-procedure Plan for aftercare: 1. Await histopathology 2. Fiber regimen as discussed in clinic. 3. Consider repeat colonoscopy with an extra day of prep in the next year. 4. Follow up GI clinic on progress from a symptoms standpoint in the next 6-8 weeks. Disposition: PACU
[2021-05-16 08:55] VITALS: BP 101/68; PULSE 62; RESP 12; TEMP 36.1; O2SAT 95
[2021-05-16 09:00] VITALS: BP 120/73; PULSE 60; RESP 15; O2SAT 95
== END 2021-05-16 09:20 | disposition home or self-care (01) ==
PROVIDERS: Family Provider Family Medicine; PCP Family Medicine; Referring Provider Internal Medicine Gastroenterology; Visit Provider Internal Medicine Gastroenterology
PROC: 0DJD8ZZ Inspection of Lower Intestinal Tract, Via Natural or Artificial Opening Endoscopic (ICD-10-PCS; CPT 45378; principal; 2021-05-16 08:30)
DX: R15.9 Full incontinence of feces (principal); K59.00 Constipation, unspecified; Z86.010 Personal history of colon polyps; Z80.0 Family history of malignant neoplasm of digestive organs; D12.3 Benign neoplasm of transverse colon; I51.9 Heart disease, unspecified; K57.30 Diverticulosis of large intestine without perforation or abscess without bleeding
CPT/HCPCS: 45385; 45380; J2704

== ENCOUNTER → 2021-06-12 07:43 | Outpatient (CLI) | payer MEDICARE, SELFPAY ==
[2021-06-12 09:38] LABS: Alanine Aminotransferase 26 IU/L (<50); Albumin 4.1 g/dL (3.5-5.0); Albumin Globulin Ratio 1.6 (1.0-2.8); Alkaline Phosphatase 92 U/L (38-126); Aspartate Aminotransferase 27 IU/L (17-59); BUN Creatinine Ratio 16.9 (6-22); Bilirubin Total 0.5 mg/dL (0.2-1.3); Blood Urea Nitrogen 25 mg/dL (9-20); Calcium 9.5 mg/dL (8.4-10.2); Carbon Dioxide 23 mmol/L (22-32); Chloride 107 mmol/L (98-107); Cholesterol 165 mg/dL (140-199); Estimated Glomerular Filt Rate 45.8 mL/min (>60); Globulin 2.6 g/dL (1.7-4.1); Glucose 103 mg/dL (80-110); HDL Cholesterol 35 mg/dL (40-60); HEMOLYSIS < 15 (0-50); LDL Cholesterol Calculated 78 mg/dL (<100); Potassium 4.4 mmol/L (3.4-5.1); Sodium 140 mmol/L (137-145); Total Protein 6.7 g/dL (6.3-8.2); Triglycerides 262 mg/dL (35-150)
== END ==
PROVIDERS: Family Provider Family Medicine; PCP Family Medicine; Referring Provider Internal Medicine Cardiovascular Disease; Visit Provider Internal Medicine Cardiovascular Disease
DX: E78.5 Hyperlipidemia, unspecified (principal)
CPT/HCPCS: 36415; 80053; 80061

== ENCOUNTER → 2021-06-27 12:28 | Outpatient (CLI) | payer MEDICARE, SELFPAY ==
[2021-06-27 13:53] LABS: Alanine Aminotransferase 26 IU/L (<50); Albumin 4.1 g/dL (3.5-5.0); Albumin Globulin Ratio 1.6 (1.0-2.8); Alkaline Phosphatase 92 U/L (38-126); Aspartate Aminotransferase 27 IU/L (17-59); BUN Creatinine Ratio 14.6 (6-22); Blood Urea Nitrogen 20 mg/dL (9-20); Calcium 9.3 mg/dL (8.4-10.2); Carbon Dioxide 24 mmol/L (22-32); Chloride 105 mmol/L (98-107); Estimated Glomerular Filt Rate 50.1 mL/min (>60); Globulin 2.6 g/dL (1.7-4.1); Glucose 94 mg/dL (80-110); HEMOLYSIS < 15 (0-50); Potassium 3.9 mmol/L (3.4-5.1); Sodium 137 mmol/L (137-145); Total Protein 6.7 g/dL (6.3-8.2)
== END ==
PROVIDERS: Family Provider Family Medicine; PCP Family Medicine; Referring Provider Family Medicine; Visit Provider Family Medicine
DX: I10 Essential (primary) hypertension (principal); N28.9 Disorder of kidney and ureter, unspecified
CPT/HCPCS: 36415; 80053

== ENCOUNTER 2021-06-27 13:40 | Outpatient (RCR) | payer MEDICARE, SELFPAY | END 2021-06-27 15:40 | LOC: PUL 13:40 | PROVIDERS: Family Provider Family Medicine; PCP Family Medicine; Referring Provider Internal Medicine; Visit Provider Internal Medicine | DX: J84.89 Other specified interstitial pulmonary diseases (principal) ==

== ENCOUNTER 2021-07-02 00:07 | Emergency (ER) | payer MEDICARE, SELFPAY ==
[2021-07-02] VITALS (10 sets, daily range): BP systolic 118–144; BP diastolic 60–79; PULSE 43–78; RESP 17–39; TEMP 36.4; O2SAT 89–99; BMI 28.7
--- NOTE | 2021-07-02 00:28 | DI.RAD.S_ITS ---
PROCEDURE: XR CHEST 1V INDICATIONS: epigastric pain TECHNIQUE: One view of the chest was acquired. COMPARISON: [facility], CR, XR CHEST 2V, 03/08/2021, 7:46. FINDINGS: Surgical changes and devices: None. Lungs and pleura: Lungs are clear. No pleural effusions or pneumothorax. Mediastinum: Mediastinal contours appear normal. Heart size is normal. Bones and chest wall: No suspicious bony lesions. Overlying soft tissues appear unremarkable. IMPRESSION: No evidence acute pulmonary process. Dictated by: Mason Chopra M.D. on 07/02/2021 at 1:03 Approved by: Mason Chopra M.D. on 07/02/2021 at 1:03
[2021-07-02 00:41] LABS: Add Manual Diff / Slide Review NO; Basophils Absolute Auto 100 /uL (0-100); Basophils Percent Auto 0.9 % (0-2); Eosinophils Absolute Auto 300 /uL (0-450); Eosinophils Percent Auto 2.6 % (2-4); Hematocrit 39.9 % (41-53); Hemoglobin 13.7 g/dL (13.5-17.5); Lymphocytes Absolute Auto 2600 /uL (1100-4500); Lymphocytes Percent Auto 25.3 % (25-40); Mean Corpuscular HGB Conc 34.3 % (30-36); Mean Corpuscular Hemoglobin 30.2 PG (26-34); Mean Corpuscular Volume 87.9 fL (80-100); Monocytes Absolute Auto 1800 /uL (0-900); Monocytes Percent Auto 17.5 % (3-14); Neutrophils Absolute Auto 5600 /uL (1500-7000); Neutrophils Percent Auto 53.7 % (50-75); Platelet Count 185 X10^3/uL (150-400); Red Blood Cell Count 4.54 X10^6/uL (4.5-5.9); Red Cell Distribution Width 13.8 % (11.6-14.8); White Blood Cell Count 10.4 X10^3/uL (4.5-11.0)
[2021-07-02 00:46] LABS: INR 1.1 (0.9-1.3); Prothrombin Time 12.2 SECONDS (10.1-12.7)
--- NOTE | 2021-07-02 00:52 | ED.ABDPAIN ---
HPI - Abdominal Pain General Chief Complaint: Abdominal Pain Stated Complaint: fall, hit back on something Time Seen by Provider: 07/02/21 00:34 Source: patient Mode of arrival: Wheelchair Limitations: no limitations History of Present Illness HPI narrative: This is a 81-year-old male comes in with complaint of a ground level fall 3 days ago patient slipped on the floor all caring some aches he landed on a wooden stool which he knocked over and landed on the point of the stool in the left side of his back. He had quite a bit of pain he has had some bruising. If he moves the wrong way it is quite painful. It has been slowly improving over the last 3 days he comes in tonight because about an hour prior to arrival he had epigastric pain that began suddenly. Patient states that it localized did not radiate. He denies any syncope, no loss of consciousness, no headache, neck or spinal pain. No numbness, tingling or weakness. He has felt nauseated intermittently after he 1st injured himself and when he has had pain. He has had not had any vomiting. No chest pain, no shortness of breath. He was diaphoretic this evening with episode. No issues with bowel movements or urination. He is on aspirin daily, atorvastatin, metoprolol, lisinopril, probenecid and has a history of pulmonary fibrosis, mi, bundle branch block and stroke. Related Data Previous Rx's Medication Instructions Recorded aspirin 325 mg tablet 325 mg PO DAILY #30 tab 11/18/20 atorvastatin 80 mg tablet See Rx Instructions .ROUTE 04/13/21 .COMPLEX #90 tab metoprolol succinate 25 mg 12.5 mg PO DAILY #90 tab 04/13/21 tablet,extended release 24 hr pantoprazole 40 mg tablet,delayed 40 mg PO BID #90 tab 04/13/21 release (Protonix) probenecid 500 mg tablet See Rx Instructions .ROUTE 04/13/21 .COMPLEX #180 tab Allergies Allergy/AdvReac Type Severity Reaction Status Date / Time No Known Drug Allergies Allergy Verified 02/15/21 15:40 Review of Systems Review of Systems ROS Unobtainable: All systems reviewed & are unremarkable except as noted in HPI and below Patient History Medical History Bladder cancer (2008) Cataract Chicken pox Chronic cough Colon polyps Diverticular disease Dysphonia Esophageal dysmotility Foot pain (2014) Gout Hayfever Hearing loss Measles Mumps Surgical History Anesthesia History of bladder surgery (2007) History of cataract extraction with lens replacement Status post appendectomy (1964) Status post hernia repair (1964) Family History Father Heart disease Mother Cancer Brother No problems noted. Sister No problems noted. Social History household members: spouse Smoking Status: Former smoker Smoking Status: Former smoker alcohol intake frequency: 0-2 drinks per day Substance Use Type: does not use Exam Narrative Exam Narrative: GEN: Patient appears in mild distress. HEAD: No evidence of trauma, no raccoon/Burr sign. NECK: Nontender, painless range of motion, trachea midline Negative Nexus criteria, there is no midline line tenderness, distracting injury, altered mental status, neuro deficit, recent EtOH. EYES: PERRLA, EOMI ENT: External inspection normal, trachea is midline, TM's are normal no hemotypanum, Nares are clear, no septal hematoma, no dental or oral injury, airway is normal and with normal occlusion, No bony tenderness RESP: Chest is nontender and has symmetric movement, no ecchymosis, breath sounds are normal no crackles, wheezes or rales CVS: Heart sounds are normal, no murmur noted, No JVD. ABG/GI: Nontender, soft, normal bowel sounds, no distention, no organomegaly, pelvic rock is negative NEURO: Oriented AOx3, neuro is grossly intact, sensation and motor is normal all 4 extremities moving, cranial nerves II through XII are intact, GCS is 15 PSYCH: Normal mood and affect SKIN: Intact, warm and dry, no crepitus and without decubitus. Patient does have ecchymosis over the left lateral ribs. It is greenish discoloration. There is no large palpable hematoma. BACK: No CVA tenderness, no vertebral tenderness, no step-off's, no crepitus EXT: Atraumatic, hips are nontender, no pedal edema, normal color and temperature, normal range of motion of extremities with normal tendon exam, 2+ pulses in all four extremities Initial Vital Signs Initial Vital Signs: Vital Signs Temperature 97.5 F L 07/02/21 00:19 Pulse Rate 75 07/02/21 00:19 Respiratory Rate 20 07/02/21 00:19 Blood Pressure 118/60 07/02/21 00:19 Pulse Oximetry 95 07/02/21 00:19 Course Orders Ordered: ED Orders 07/02/21 00:24 EKG-12 Lead Stat 07/02/21 00:28 XR chest 1V Stat 07/02/21 00:32 Complete Blood Count AUTO DIFF Stat Comprehensive Metabolic Panel Stat Lipase Stat Prothrombin Time INR Stat Troponin & CK Cardiac Panel Stat 07/02/21 01:16 CT chest abd pel w con Stat 07/02/21 02:35 Trop I [Troponin I] Stat 07/02/21 02:51 EKG-12 Lead Stat Discontinued Medications Sodium Chloride (Normal Saline 0.9%) 1,000 mls @ 500 mls/hr IV BOLUS ONE Stop: 07/02/21 03:16 Last Infusion: 07/02/21 03:50 Dose: 0 mls/hr Documented by: Admin: 07/02/21 01:20 Dose: 500 mls/hr Documented by: MIGUEL Reevaluation(s) Reevaluation #1: patient continues to be asymptomatic. Vital Signs Vital signs: Vital Signs - 8 hr 07/02/21 00:19 07/02/21 00:27 07/02/21 00:30 Temperature 97.5 F L Pulse Rate 75 65 76 Respiratory Rate 20 17 22 Blood Pressure 118/60 Pulse Oximetry 95 07/02/21 01:00 07/02/21 01:32 07/02/21 02:00 Temperature Pulse Rate 67 43 L 78 Respiratory Rate 39 H 21 Blood Pressure Pulse Oximetry 95 89 L 93 07/02/21 02:30 07/02/21 03:00 07/02/21 03:26 Temperature Pulse Rate 66 66 73 Respiratory Rate 19 21 Blood Pressure 141/71 H Pulse Oximetry 94 96 99 07/02/21 03:30 Temperature Pulse Rate 65 Respiratory Rate 20 Blood Pressure 143/79 H Pulse Oximetry 99 MDM - Abdominal Pain Lab Data Result diagrams: 07/02/21 00:32 07/02/21 00:32 Labs: Lab Results 07/02/21 07/02/21 07/02/21 Range/Units 00:32 00:32 00:32 WBC 10.4 (4.5-11.0) X10^3/uL RBC 4.54 (4.5-5.9) X10^6/uL Hgb 13.7 (13.5-17.5) g/dL Hct 39.9 L (41-53) % MCV 87.9 (80-100) fL MCH 30.2 (26-34) PG MCHC 34.3 (30-36) % RDW 13.8 (11.6-14.8) % Plt Count 185 (150-400) X10^3/uL Neut % (Auto) 53.7 (50-75) % Lymph % (Auto) 25.3 (25-40) % [place] % (Auto) 17.5 H (3-14) % Eos % (Auto) 2.6 (2-4) % Baso % (Auto) 0.9 (0-2) % Neut # (Auto) 5600 (5754-2517) /uL Lymph # (Auto) 2600 (4167-4938) /uL [place] # (Auto) 1800 H (0-900) /uL Eos # (Auto) 300 (0-450) /uL Baso # (Auto) 100 (0-100) /uL PT 12.2 (10.1-12.7) SECONDS INR 1.1 (0.9-1.3) Sodium 140 (137-145) mmol/L Potassium 3.5 (3.4-5.1) mmol/L Chloride 110 H (98-107) mmol/L Carbon Dioxide 24 (22-32) mmol/L BUN 22 H (9-20) mg/dL Creatinine 1.27 H (0.66-1.25) mg/dL Estimated GFR 54.7 L (>60) mL/min BUN/Creatinine Ratio 17.3 (6-22) Glucose 134 H (80-110) mg/dL Calcium 8.7 (8.4-10.2) mg/dL Total Bilirubin 0.6 (0.2-1.3) mg/dL AST 49 (17-59) IU/L ALT 34 (<50) IU/L Alkaline Phosphatase 110 (38-126) U/L Total Creatine Kinase (55-170) U/L CK-MB (CK-2) CK-MB (CK-2) Rel Index Troponin I (0.01-0.034) ng/mL Total Protein 6.6 (6.3-8.2) g/dL Albumin 3.7 (3.5-5.0) g/dL Globulin 2.9 (1.7-4.1) g/dL Albumin/Globulin Ratio 1.3 (1.0-2.8) Lipase 40 (23-300) U/L 07/02/21 07/02/21 Range/Units 00:32 02:35 WBC (4.5-11.0) X10^3/uL RBC (4.5-5.9) X10^6/uL Hgb (13.5-17.5) g/dL Hct (41-53) % MCV (80-100) fL MCH (26-34) PG MCHC (30-36) % RDW (11.6-14.8) % Plt Count (150-400) X10^3/uL Neut % (Auto) (50-75) % Lymph % (Auto) (25-40) % [place] % (Auto) (3-14) % Eos % (Auto) (2-4) % Baso % (Auto) (0-2) % Neut # (Auto) (0242-6826) /uL Lymph # (Auto) (7203-8196) /uL [place] # (Auto) (0-900) /uL Eos # (Auto) (0-450) /uL Baso # (Auto) (0-100) /uL PT (10.1-12.7) SECONDS INR (0.9-1.3) Sodium (137-145) mmol/L Potassium (3.4-5.1) mmol/L Chloride (98-107) mmol/L Carbon Dioxide (22-32) mmol/L BUN (9-20) mg/dL Creatinine (0.66-1.25) mg/dL Estimated GFR (>60) mL/min BUN/Creatinine Ratio (6-22) Glucose (80-110) mg/dL Calcium (8.4-10.2) mg/dL Total Bilirubin (0.2-1.3) mg/dL AST (17-59) IU/L ALT (<50) IU/L Alkaline Phosphatase (38-126) U/L Total Creatine Kinase 81 (55-170) U/L CK-MB (CK-2) TNP CK-MB (CK-2) Rel Index TNP Troponin I < 0.012 < 0.012 (0.01-0.034) ng/mL Total Protein (6.3-8.2) g/dL Albumin (3.5-5.0) g/dL Globulin (1.7-4.1) g/dL Albumin/Globulin Ratio (1.0-2.8) Lipase (23-300) U/L Point of care testing: Urine Dip Bedside Urine Glucose Negative Bedside Urine Bilirubin - Negative Bedside Urine Ketone - Negative Urine Specific [place] 1.015 Bedside Urine Occult Blood - Negative Bedside Urine pH 5.5 Bedside Urine Protein - Negative Bedside Urine Urobilinogen - Negative Bedside Urine Nitrite - Negative Bedside Urine Leukocytes - Negative Esterase Imaging Data Chest x-ray: Radiologist's Impression: [address] [address] XRay Report Signed Patient: Osbaldo Dumont MR#: [id number] : 1940 Acct:[id number] Age/Sex: 81 / M Date of Service: 07/02/21 Loc: ED Accession Number: [id number] ?? Procedure: XR chest 1V Ordering Provider: Elinor Ontiveros D.O. PROCEDURE:? XR CHEST 1V ? INDICATIONS:? epigastric pain ? TECHNIQUE:? One view of the chest was acquired.? ? COMPARISON:? [facility], CR, XR CHEST 2V, 03/08/2021, 7:46. ? FINDINGS:? ? Surgical changes and devices:? None.? ? Lungs and pleura:? Lungs are clear.? No pleural effusions or pneumothorax.? ? Mediastinum:? Mediastinal contours appear normal.? Heart size is normal.? ? Bones and chest wall:? No suspicious bony lesions.? Overlying soft tissues appear unremarkable.? ? IMPRESSION:? No evidence acute pulmonary process. ? ? ? Dictated by: Mason Chopra M.D. on 07/02/2021 at 1:03 ? ? Approved by: Mason Chopra M.D. on 07/02/2021 at 1:03?? CT scan - abdomen/pelvis: Radiologist's Impression: [address] [address] [address] Scan Report Signed Patient: Osbaldo Dumont MR#: [id number] : 1940 Acct:[id number] Age/Sex: 81 / M Date of Service: 07/02/21 Loc: ED Accession Number: [id number] ?? Procedure: CT chest abd pel w con Ordering Provider: Elinor Ontiveros D.O. PROCEDURE:? CT ABDOMEN PELVIS W CON ? INDICATIONS:? epigastric pain today, left flank pain- 3days, fall 3 days ? TECHNIQUE:? After the administration of intravenous contrast, axial sections acquired from the lung bases to the pubic symphysis.? Coronal and sagittal reformats were performed.? For radiation dose reduction, the following was used:? automated exposure control, adjustment of mA and/or kV according to patient size.? ? COMPARISON:? None. ? FINDINGS:? Image quality:? Excellent.? ? Lung bases:? Unremarkable. Heart:? No significant findings. ? ABDOMEN: Liver:? Unremarkable.? ? Gallbladder:? Unremarkable.? ? Biliary ducts:? Unremarkable.? ? Pancreas:? Unremarkable.? ? Spleen:? Unremarkable.? ? Adrenal Glands:? Unremarkable.? ? Kidneys and Ureters:? Unremarkable.? ? ? Stomach and Bowel:? There is a large fecal load throughout the colon.? No dilated loops.? Occasional diverticuli without evidence of diverticulitis.? Peritoneum:? No abnormal intraperitoneal fluid.? No free air.? ? Ventral Wall: ? No hernias.? Abdominal Nodes:? No retroperitoneal or mesenteric adenopathy by size criteria.? Vessels:? Mild aneurysmal dilatation of the infrarenal abdominal aorta, measuring 3.5 cm. ?It has mild thrombus.? ? PELVIS: Pelvic Organs:? Unremarkable.? ? Bladder:? Unremarkable.? ? Pelvic Nodes: No enlarged lymph nodes.? Miscellaneous: No hernias are seen. ? ? ? Bones:? Lumbar degenerative change.? No lytic or blastic bony lesions.? No compression fractures. ? ? ? IMPRESSION: ? 1. Large fecal load within normal bowel gas pattern. ? 2. No evidence of acute abdominal process.? ? Dictated by: Mason Chopra M.D. on 07/02/2021 at 1:45 ? ? Approved by: Mason Chopra M.D. on 07/02/2021 at 1:48?? CT chest: Radiologist's Impression: No airspace disease, pneumothorax or pleural effusion. Mild reticular fibrosis without honeycombing. Borderline cardiomegaly. No evidence of right heart strain. Calcified coronary disease. Calcified mitral annulus. Shotty mediastinal lymph nodes likely reactive. ECG Data Attestation: I personally reviewed and interpreted this ECG as follows: Interpretation: Sinus rhythm with frequent PVCs in a bigeminal pattern. Left axis deviation, left bundle-branch block. Rate of 66, WI 202, QRS of 164 QTC of 519. Patient has prior from 12/17/2019 with similar changes but no bigeminal PVCs. Patient has had occasional PVCs on telemetry but not frequent or persistent bigeminal PVCs. Repeat EKG does not show frequent PVCs. Does show sinus rhythm, left axis deviation along with left bundle-branch block at a rate of 65, P are 200, QRS of 156 and QTC of 484. Patient's EKG is similar to prior from 12/17/2019. MDM Narrative Medical decision making narrative: This is a 81-year-old male who had a fall 3 days ago. Patient has bruising and pain with movement. He has been having improvement but states this morning he had epigastric pain which lasted approximately an hour and resolved when his IV was placed. Patient does not have any acute EKG changes, negative troponin x2. Patient's creatinine is at baseline the only major lab abnormality. CT imaging shows a large amount of stool, and a slightly enlarged aorta that is infrarenal had seems a less likely cause of his pain considering it was epigastric. No other acute changes were noted patient continues to feel much better and is discharged home with return precautions. Discharge Plan Departure Patient Disposition: Home Clinical Impression: Traumatic ecchymosis of flank, Abdominal pain, epigastric Instructions: How to Prevent Falls Activity Restrictions/Additional Instructions: Your imaging today does show quite a bit of stool which could be contributing to your epigastric pain. You may take stool softener such as Colace daily. It is also important to make sure drinking plenty of water so you have soft regular stools. It is noted that there was some dilation of the abdominal aorta and it is recommended that you have follow-up with your primary care physician to continue to monitor this, they may monitor with ultrasound every 6 months. Discuss this with your physician. Please return for new or worsening abdominal, back or flank pain. Lightheadedness or passing out, new chest pain, shortness of breath or other new or concerning symptoms. Prescriptions: No Action aspirin 325 mg tablet 325 mg PO DAILY Qty: 30 3RF atorvastatin 80 mg tablet See Rx Instructions .ROUTE .COMPLEX Qty: 90 3RF Dose Instruction: TAKE 1 TABLET BY MOUTH DAILY Rx Instructions: TAKE 1 TABLET BY MOUTH DAILY pantoprazole [Protonix] 40 mg tablet,delayed release (DR/EC) 40 mg PO BID Qty: 90 3RF metoprolol succinate 25 mg tablet extended release 24 hr 12.5 mg PO DAILY Qty: 90 3RF probenecid 500 mg tablet See Rx Instructions .ROUTE .COMPLEX Qty: 180 3RF Dose Instruction: TAKE 1 TABLET BY MOUTH TWICE DAILY. Rx Instructions: TAKE 1 TABLET BY MOUTH TWICE DAILY. Referrals: Jeffrey Beauchamp MD [Primary Care Provider] -
[2021-07-02 00:53] LABS: Alanine Aminotransferase 34 IU/L (<50); Albumin 3.7 g/dL (3.5-5.0); Albumin Globulin Ratio 1.3 (1.0-2.8); Alkaline Phosphatase 110 U/L (38-126); Aspartate Aminotransferase 49 IU/L (17-59); BUN Creatinine Ratio 17.3 (6-22); Bilirubin Total 0.6 mg/dL (0.2-1.3); Blood Urea Nitrogen 22 mg/dL (9-20); Calcium 8.7 mg/dL (8.4-10.2); Carbon Dioxide 24 mmol/L (22-32); Chloride 110 mmol/L (98-107); Creatine Kinase 81 U/L (55-170); Estimated Glomerular Filt Rate 54.7 mL/min (>60); Globulin 2.9 g/dL (1.7-4.1); Glucose 134 mg/dL (80-110); HEMOLYSIS < 15 (0-50); Lipase 40 U/L (23-300); Potassium 3.5 mmol/L (3.4-5.1); Sodium 140 mmol/L (137-145); Total Protein 6.6 g/dL (6.3-8.2)
[2021-07-02 01:04] LABS: Troponin I < 0.012 ng/mL (0.01-0.034)
--- NOTE | 2021-07-02 01:16 | DI.CT.S_ITS ---
PROCEDURE: CT ABDOMEN PELVIS W CON INDICATIONS: epigastric pain today, left flank pain- 3days, fall 3 days TECHNIQUE: After the administration of intravenous contrast, axial sections acquired from the lung bases to the pubic symphysis. Coronal and sagittal reformats were performed. For radiation dose reduction, the following was used: automated exposure control, adjustment of mA and/or kV according to patient size. COMPARISON: None. FINDINGS: Image quality: Excellent. Lung bases: Unremarkable. Heart: No significant findings. ABDOMEN: Liver: Unremarkable. Gallbladder: Unremarkable. Biliary ducts: Unremarkable. Pancreas: Unremarkable. Spleen: Unremarkable. Adrenal Glands: Unremarkable. Kidneys and Ureters: Unremarkable. Stomach and Bowel: There is a large fecal load throughout the colon. No dilated loops. Occasional diverticuli without evidence of diverticulitis. Peritoneum: No abnormal intraperitoneal fluid. No free air. Ventral Wall: No hernias. Abdominal Nodes: No retroperitoneal or mesenteric adenopathy by size criteria. Vessels: Mild aneurysmal dilatation of the infrarenal abdominal aorta, measuring 3.5 cm. It has mild thrombus. PELVIS: Pelvic Organs: Unremarkable. Bladder: Unremarkable. Pelvic Nodes: No enlarged lymph nodes. Miscellaneous: No hernias are seen. Bones: Lumbar degenerative change. No lytic or blastic bony lesions. No compression fractures. IMPRESSION: 1. Large fecal load within normal bowel gas pattern. 2. No evidence of acute abdominal process. Dictated by: Mason Chopra M.D. on 07/02/2021 at 1:45 Approved by: Mason Chopra M.D. on 07/02/2021 at 1:48
[2021-07-02] MEDS: SODIUM CHLORIDE 0.9% 1,000 ML 500 ML IV (01:20)
[2021-07-02 03:08] LABS: Troponin I < 0.012 ng/mL (0.01-0.034)
== END 2021-07-02 04:09 | disposition home or self-care (01) ==
PROVIDERS: Emergency Provider Emergency Medicine; Family Provider Family Medicine; PCP Family Medicine
DX: S30.1XXA Contusion of abdominal wall, initial encounter (principal); R10.13 Epigastric pain; W01.190A Fall on same level from slipping, tripping and stumbling with subsequent striking against furniture, initial encounter
CPT/HCPCS: 36415; 71045; 71260; 74177; 80053; 81003; 82550; 83690; 84484; 85025; 85610; 93005; 99284; Q9967

== ENCOUNTER → 2021-07-25 10:31 | Outpatient (CLI) | payer MEDICARE, SELFPAY ==
--- NOTE | 2021-07-25 10:33 | DI.US.S_ITS ---
PROCEDURE: US ABD AORTA ANEURYSM SCREEN INDICATIONS: ABDOMINAL AORTIC ANEURYSM TECHNIQUE: Real time scanning was performed of the aorta and iliac arteries, with image documentation. COMPARISON: [facility], , ABD AORTA ANEURYSM SCREENING, 01/24/2012, 10:36. FINDINGS: Aorta: Proximal aortic is obscured by overlying bowel gas. Mid-aorta measures 2 cm. Distal aortic diameter measures up to 3.4 cm in AP dimension, and 3.3 cm in transverse dimension. Iliac arteries: Right common iliac artery measures 1.3 cm. Left common iliac artery measures 1.2 cm. IMPRESSION: 1. Infrarenal abdominal aortic aneurysm measures 3.4 in largest AP diameter. Dictated by: Jorge Holguin M.D. on 07/25/2021 at 12:22 Approved by: Jorge Holguin M.D. on 07/25/2021 at 12:25
== END ==
PROVIDERS: Family Provider Family Medicine; PCP Family Medicine; Referring Provider Family Medicine; Visit Provider Family Medicine
DX: I71.4 Abdominal aortic aneurysm, without rupture (principal)
CPT/HCPCS: 76706

== ENCOUNTER → 2021-08-30 08:24 | Outpatient (CLI) | payer MEDICARE, SELFPAY ==
[2021-08-30 09:35] LABS: Hemoglobin A1C% w Est Avg Glu 6.5 % (4.0-6.0)
[2021-08-30 09:46] LABS: Alanine Aminotransferase 21 IU/L (<50); Albumin 4.2 g/dL (3.5-5.0); Albumin Globulin Ratio 1.6 (1.0-2.8); Alkaline Phosphatase 99 U/L (38-126); Aspartate Aminotransferase 22 IU/L (17-59); BUN Creatinine Ratio 18.7 (6-22); Bilirubin Total 0.6 mg/dL (0.2-1.3); Blood Urea Nitrogen 23 mg/dL (9-20); Calcium 9.4 mg/dL (8.4-10.2); Carbon Dioxide 23 mmol/L (22-32); Chloride 110 mmol/L (98-107); Estimated Glomerular Filt Rate 56.8 mL/min (>60); Globulin 2.7 g/dL (1.7-4.1); Glucose 118 mg/dL (80-110); HEMOLYSIS < 15 (0-50); Potassium 4.1 mmol/L (3.4-5.1); Sodium 141 mmol/L (137-145); Total Protein 6.9 g/dL (6.3-8.2)
== END ==
PROVIDERS: Family Provider Family Medicine; PCP Family Medicine; Referring Provider Family Medicine; Visit Provider Family Medicine
DX: R73.9 Hyperglycemia, unspecified (principal); C67.9 Malignant neoplasm of bladder, unspecified; E78.2 Mixed hyperlipidemia; I10 Essential (primary) hypertension
CPT/HCPCS: 36415; 80053; 83036

== ENCOUNTER 2022-01-11 12:07 | Emergency (ER) | payer MEDICARE, SELFPAY ==
[2022-01-11 12:17] VITALS: BP 127/68; PULSE 69; RESP 17; TEMP 35.6; O2SAT 95; BMI 28.3
--- NOTE | 2022-01-11 14:00 | DI.RAD.S_ITS ---
PROCEDURE: XR CHEST 2V INDICATIONS: covid TECHNIQUE: 2 views of the chest were acquired. COMPARISON: [facility], CR, XR CHEST 1V, 07/02/2021, 0:36. FINDINGS: Surgical changes and devices: None. Lungs and pleura: Diffuse chronic interstitial changes present with superimposed interstitial infiltrates. Pleural spaces are clear. Mediastinum: Mediastinal contours are normal. Heart size is normal. Bones and chest wall: No suspicious bony abnormalities. Soft tissues appear unremarkable. 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 Approved by: Christopher Kraus M.D. on 01/11/2022 at 15:08
[2022-01-11 15:06] LABS: COVID19 -Nasal RAPID POSITIVE (Negative)
[2022-01-11 15:07] LABS: Add Manual Diff / Slide Review NO; Basophils Absolute Auto 100 /uL (0-100); Basophils Percent Auto 1.1 % (0-2); Eosinophils Absolute Auto 200 /uL (0-450); Eosinophils Percent Auto 2.7 % (2-4); Hematocrit 38.1 % (41-53); Hemoglobin 13.3 g/dL (13.5-17.5); Lymphocytes Absolute Auto 1700 /uL (1100-4500); Lymphocytes Percent Auto 20.1 % (25-40); Mean Corpuscular HGB Conc 34.9 % (30-36); Mean Corpuscular Hemoglobin 30.2 PG (26-34); Mean Corpuscular Volume 86.4 fL (80-100); Monocytes Absolute Auto 1000 /uL (0-900); Monocytes Percent Auto 11.5 % (3-14); Neutrophils Absolute Auto 5600 /uL (1500-7000); Neutrophils Percent Auto 64.6 % (50-75); Platelet Count 239 X10^3/uL (150-400); Red Blood Cell Count 4.41 X10^6/uL (4.5-5.9); Red Cell Distribution Width 13.9 % (11.6-14.8); White Blood Cell Count 8.6 X10^3/uL (4.5-11.0)
[2022-01-11 15:11] LABS: Alanine Aminotransferase 78 IU/L (<50); Albumin 3.9 g/dL (3.5-5.0); Albumin Globulin Ratio 1.3 (1.0-2.8); Alkaline Phosphatase 112 U/L (38-126); Aspartate Aminotransferase 46 IU/L (17-59); BUN Creatinine Ratio 13.2 (6-22); Bilirubin Total 0.6 mg/dL (0.2-1.3); Blood Urea Nitrogen 16 mg/dL (9-20); Calcium 8.4 mg/dL (8.4-10.2); Carbon Dioxide 20 mmol/L (22-32); Chloride 111 mmol/L (98-107); Creatine Kinase 103 U/L (55-170); D Dimer 295 ng/mL (<230); Estimated Glomerular Filt Rate > 60 mL/min (>60); Globulin 3.1 g/dL (1.7-4.1); Glucose 101 mg/dL (80-110); HEMOLYSIS < 15 (0-50); Lipase 49 U/L (23-300); Potassium 3.9 mmol/L (3.4-5.1); Sodium 140 mmol/L (137-145)
--- NOTE | 2022-01-11 15:21 | ED.SOB ---
HPI - SOB/Dyspnea General Chief Complaint: Shortness of Breath/Dyspnea Stated Complaint: Breathing Problems, Pulse Ox Dropped to 89 Time Seen by Provider: 01/11/22 13:41 Source: patient Mode of arrival: Ambulatory Limitations: no limitations History of Present Illness HPI Narrative: Patient is a 81-year-old male history of pulmonary fibrosis was diagnosed with COVID 2 weeks ago. He took a home COVID test a precaution but remained completely asymptomatic. He said today while walking he became suddenly more short of breath than normal. His oxygen level dropped to 88-90%. It is currently 95% on room air with movement denies any chest pain. He has not been a fever or cough. He wanted to be sure he was okay with low oxygen and COVID. He denies any orthopnea. He said yesterday he was able to walk into just fine, today he just felt like something was wrong Related Data Home Medications Medication Instructions Recorded Confirmed ipratropium bromide 42 mcg (0.06 2 spray intranasal BID 08/24/21 11/02/21 %) nasal spray Previous Rx's Medication Instructions Recorded aspirin 325 mg tablet 325 mg PO DAILY #30 tabs 11/18/20 metoprolol succinate 25 mg 12.5 mg PO DAILY #90 tabs 04/13/21 tablet,extended release 24 hr probenecid 500 mg tablet See Rx Instructions .Route 04/13/21 .COMPLEX #180 tabs pantoprazole 40 mg tablet,delayed See Rx Instructions .Route 08/10/21 release .COMPLEX #180 tabs losartan 25 mg tablet 12.5 mg PO DAILY #45 tabs 08/24/21 atorvastatin 80 mg tablet See Rx Instructions .Route 12/18/21 .COMPLEX #90 tabs albuterol sulfate 90 mcg/actuation 2 puff inhalation Q4-6H PRN 01/11/22 aerosol inhaler shortness of breath or wheezing #8.5 grams prednisone 20 mg tablet 40 mg PO DAILY #10 tabs 01/11/22 Allergies Allergy/AdvReac Type Severity Reaction Status Date / Time No Known Drug Allergies Allergy Verified 01/11/22 12:17 Review of Systems Review of Systems Narrative: GENERAL: Denies chills, fatigue, malaise, fever, sweats, travel HEENT: Denies sinus pain, ear pain, sore throat, difficulty swallowing, neck pain RESPIRATORY: See HPI CARDIOVASCULAR: Denies chest pain, palpitations, orthopnea, edema GASTROINTESTINAL: Denies nausea, vomiting, abdominal pain, diarrhea, constipation, melena. : Denies dysuria, frequency, incontinence, hematuria, urinary retention, flank pain. MUSCULOSKELETAL: Denies weakness, joint pain, or bony pain SKIN: No rash, no erythema, no pruritus NEUROLOGIC: Denies weakness, dizziness, headache, numbness, change in speech, confusion PSYCHIATRIC: No concerning psychosocial issues. 12 point review of systems is negative except for those stated above and HPI Patient History Medical History Bladder cancer (2007) Cataract Chicken pox Chronic cough Colon polyps Diverticular disease Dysphonia Esophageal dysmotility Foot pain (2013) Gout Hayfever Hearing loss Measles Mumps Surgical History Anesthesia History of bladder surgery (2007) History of cataract extraction with lens replacement Status post appendectomy (1964) Status post hernia repair (1964) Family History Father Heart disease Mother Cancer Brother No problems noted. Sister No problems noted. Social History household members: spouse Smoking Status: Former smoker Smoking Status: Former smoker alcohol intake frequency: 0-2 drinks per day Substance Use Type: does not use Exam Initial Vital Signs Initial Vital Signs: Vital Signs Temperature 96.1 F L 01/11/22 12:17 Pulse Rate 69 01/11/22 12:17 Respiratory Rate 17 01/11/22 12:17 Blood Pressure 127/68 01/11/22 12:17 Pulse Oximetry 95 01/11/22 12:17 Oxygen Delivery Method 01/11/22 12:17 GENERAL: Alert pleasant 81-year-old male and in no acute distress. HEENT: Head atraumatic,EOMI, pupils reactive, face symmetric, moist mucous membranes CARDIOVASCULAR: Regular rate and rhythm without murmurs, rubs or gallops. RESPIRATORY: Breath sounds equal bilaterally, no wheezes rales or rhonchi. ABDOMEN: Soft, nontender. Normoactive bowel sounds all 4 quadrants. No guarding or rebound. EXTREMITIES: Normal range of motion, no clubbing or edema. Neurovascularly intact NEUROLOGICAL: Alert and oriented x4 SKIN: Warm, dry, no laceration, no petechiae, no rashes or lesions. Course Orders Ordered: ED Orders 01/11/22 14:00 XR chest 2V Stat 01/11/22 14:23 BNP [NT-proBNP (BNP-Adult 18+)] Stat Complete Blood Count AUTO DIFF Stat Comprehensive Metabolic Panel Stat D Dimer Stat Lipase Stat Troponin & CK Cardiac Panel Stat 01/11/22 14:45 COVID19 -Nasal RAPID/Pre-Proc Stat Vital Signs Vital signs: Vital Signs - 8 hr 01/11/22 12:17 Temperature 96.1 F L Pulse Rate 69 Respiratory Rate 17 Blood Pressure 127/68 Pulse Oximetry 95 Oxygen Delivery Method Room Air MDM - SOB/Dyspnea Lab Data Result diagrams: 01/11/22 14:23 01/11/22 14:23 Labs: Lab Results 01/11/22 01/11/22 01/11/22 Range/Units 14:23 14:23 14:23 WBC 8.6 (4.5-11.0) X10^3/uL RBC 4.41 L (4.5-5.9) X10^6/uL Hgb 13.3 L (13.5-17.5) g/dL Hct 38.1 L (41-53) % MCV 86.4 (80-100) fL MCH 30.2 (26-34) PG MCHC 34.9 (30-36) % RDW 13.9 (11.6-14.8) % Plt Count 239 (150-400) X10^3/uL Neut % (Auto) 64.6 (50-75) % Lymph % (Auto) 20.1 L (25-40) % Sherman % (Auto) 11.5 (3-14) % Eos % (Auto) 2.7 (2-4) % Baso % (Auto) 1.1 (0-2) % Neut # (Auto) 5600 (3460-1063) /uL Lymph # (Auto) 1700 (5779-2704) /uL Sherman # (Auto) 1000 H (0-900) /uL Eos # (Auto) 200 (0-450) /uL Baso # (Auto) 100 (0-100) /uL D-Dimer 295 H (<230) ng/mL Sodium 140 (137-145) mmol/L Potassium 3.9 (3.4-5.1) mmol/L Chloride 111 H (98-107) mmol/L Carbon Dioxide 20 L (22-32) mmol/L BUN 16 (9-20) mg/dL Creatinine 1.21 (0.66-1.25) mg/dL Estimated GFR > 60 (>60) mL/min BUN/Creatinine Ratio 13.2 (6-22) Glucose 101 (80-110) mg/dL Calcium 8.4 (8.4-10.2) mg/dL Total Bilirubin 0.6 (0.2-1.3) mg/dL AST 46 (17-59) IU/L ALT 78 H (<50) IU/L Alkaline Phosphatase 112 (38-126) U/L Total Creatine Kinase 103 (55-170) U/L CK-MB (CK-2) 2.47 H (<2.37) ng/mL CK-MB (CK-2) Rel Index 2.4 (1.5-5.0) % Troponin I < 0.012 (0.01-0.034) ng/mL NT-Pro-B Natriuret Pep (<450) pg/mL Total Protein 7.0 (6.3-8.2) g/dL Albumin 3.9 (3.5-5.0) g/dL Globulin 3.1 (1.7-4.1) g/dL Albumin/Globulin Ratio 1.3 (1.0-2.8) Lipase 49 (23-300) U/L SARS-CoV-2 (PCR) (Negative) 01/11/22 01/11/22 Range/Units 14:23 14:45 WBC (4.5-11.0) X10^3/uL RBC (4.5-5.9) X10^6/uL Hgb (13.5-17.5) g/dL Hct (41-53) % MCV (80-100) fL MCH (26-34) PG MCHC (30-36) % RDW (11.6-14.8) % Plt Count (150-400) X10^3/uL Neut % (Auto) (50-75) % Lymph % (Auto) (25-40) % Sherman % (Auto) (3-14) % Eos % (Auto) (2-4) % Baso % (Auto) (0-2) % Neut # (Auto) (8143-4550) /uL Lymph # (Auto) (1979-4847) /uL Sherman # (Auto) (0-900) /uL Eos # (Auto) (0-450) /uL Baso # (Auto) (0-100) /uL D-Dimer (<230) ng/mL Sodium (137-145) mmol/L Potassium (3.4-5.1) mmol/L Chloride (98-107) mmol/L Carbon Dioxide (22-32) mmol/L BUN (9-20) mg/dL Creatinine (0.66-1.25) mg/dL Estimated GFR (>60) mL/min BUN/Creatinine Ratio (6-22) Glucose (80-110) mg/dL Calcium (8.4-10.2) mg/dL Total Bilirubin (0.2-1.3) mg/dL AST (17-59) IU/L ALT (<50) IU/L Alkaline Phosphatase (38-126) U/L Total Creatine Kinase (55-170) U/L CK-MB (CK-2) (<2.37) ng/mL CK-MB (CK-2) Rel Index (1.5-5.0) % Troponin I (0.01-0.034) ng/mL NT-Pro-B Natriuret Pep 314 (<450) pg/mL Total Protein (6.3-8.2) g/dL Albumin (3.5-5.0) g/dL Globulin (1.7-4.1) g/dL Albumin/Globulin Ratio (1.0-2.8) Lipase (23-300) U/L SARS-CoV-2 (PCR) Positive H (Negative) Imaging Data Chest x-ray: Radiologist's Impression: [address] [address] XRay Report Signed Patient: Osbaldo Dumont MR#: [id number] : 1940 Acct:[id number] Age/Sex: 81 / M Date of Service: 01/11/22 Loc: ED Accession Number: [id number] ?? Procedure: XR chest 2V Ordering Provider: Botnick,Wendi D.O. PROCEDURE:? XR CHEST 2V ? INDICATIONS:? covid ? TECHNIQUE:? 2 views of the chest were acquired.? ? COMPARISON:? [facility], CR, XR CHEST 1V, 07/02/2021, 0:36. ? FINDINGS:? ? Surgical changes and devices:? None.? ? Lungs and pleura:? Diffuse chronic interstitial changes present with superimposed interstitial infiltrates.? Pleural spaces are clear. ? Mediastinum:? Mediastinal contours are normal.? Heart size is normal.? ? Bones and chest wall:? No suspicious bony abnormalities.? Soft tissues appear unremarkable.? ? IMPRESSION:? ? Left lower lobe pulmonary infiltrate with diffuse interstitial pattern may reflect interstitial pneumonitis. ? Approved by: Christopher Kraus M.D. on 01/11/2022 at 15:08? MDM Narrative Medical decision making narrative: Patient overall appears well. He does have ongoing chronic pulmonary fibrosis or shortness of breath with exertion. D-dimer is very low BNP is negative. His O2 is well above 90% while in the emergency department. Troponin is negative. He also recently had COVID was 2 weeks ago. This might be possible residual COVID, and COVID complications. Will give him prednisone and albuterol to see if he improves Family wanting to know he is safe to go out on the boat. At this time difficulty 100% guarantee I do recommend some sort of helicopter insurance in case things turn. but at this time no indication for admission. Discharge Plan Departure Patient Disposition: Home Clinical Impression: Exacerbation of reactive airway disease, COVID-19 Instructions: DI for Reactive Airway Disease-Adult, DI for COVID-19 (Suspected or Confirmed ) Activity Restrictions/Additional Instructions: *You have been diagnosed with COVID-19, reactive airway *What to do: At this time blood work and x-ray overall reassured. Breathing may be worsened by recent COVID infection I do recommend [facility] or other helicopter insurance, out of precaution *Continue to take medications as directed Prednisone 40 mg once a day for 5 days Albuterol inhaler 1-2 puffs every 4 hours if needed for shortness of breath *Follow up with your primary care provider in 2-3 days or call [phone] *Return to ER if you should have increasing shortness of breath, chest pain or any new, worsening or concerning symptoms Prescriptions: New prednisone 20 mg tablet 40 mg PO DAILY Qty: 10 0RF albuterol sulfate 90 mcg/actuation HFA aerosol inhaler 2 puff inhalation Q4-6H PRN (Reason: shortness of breath or wheezing) Qty: 8.5 0RF No Action aspirin 325 mg tablet 325 mg PO DAILY Qty: 30 3RF metoprolol succinate 25 mg tablet extended release 24 hr 12.5 mg PO DAILY Qty: 90 3RF probenecid 500 mg tablet See Rx Instructions .ROUTE .COMPLEX Qty: 180 3RF Dose Instruction: TAKE 1 TABLET BY MOUTH TWICE DAILY. Rx Instructions: TAKE 1 TABLET BY MOUTH TWICE DAILY. pantoprazole 40 mg tablet,delayed release (DR/EC) See Rx Instructions .ROUTE .COMPLEX Qty: 180 3RF Dose Instruction: TAKE 1 TABLET BY MOUTH TWICE DAILY Rx Instructions: TAKE 1 TABLET BY MOUTH TWICE DAILY atorvastatin 80 mg tablet See Rx Instructions .ROUTE .COMPLEX Qty: 90 3RF Dose Instruction: TAKE 1 TABLET BY MOUTH DAILY Rx Instructions: TAKE 1 TABLET BY MOUTH DAILY ipratropium bromide 42 mcg (0.06 %) spray,non-aerosol 2 spray intranasal BID Rx Instructions: administer into each nostril losartan 25 mg tablet 12.5 mg PO DAILY Qty: 45 3RF Referrals: Jeffrey Beauchamp MD [Primary Care Provider] - Visit Report Forms: Patient Portal/API
[2022-01-11 15:23] LABS: Troponin I < 0.012 ng/mL (0.01-0.034)
[2022-01-11 15:27] LABS: CKMB % Relative Index 2.4 % (1.5-5.0); Creatine Kinase MB 2.47 ng/mL (<2.37)
[2022-01-11 15:49] LABS: NT-proBNP (BNP-Adult 18+) 314 pg/mL (<450)
== END 2022-01-11 16:30 | disposition home or self-care (01) ==
PROVIDERS: Emergency Provider Emergency Medicine; Family Provider Family Medicine; PCP Family Medicine
DX: U07.1 COVID-19 (principal); J45.901 Unspecified asthma with (acute) exacerbation; Z86.16 Personal history of COVID-19
CPT/HCPCS: 71046; 80053; 82550; 82553; 83690; 83880; 84484; 85025; 85379; 87635; 99283; 99284; C9803

== ENCOUNTER → 2022-01-23 07:03 | Outpatient (CLI) | payer MEDICARE, SELFPAY ==
[2022-01-23 08:43] LABS: Add Manual Diff / Slide Review NO; Basophils Absolute Auto 100 /uL (0-100); Basophils Percent Auto 0.6 % (0-2); Eosinophils Absolute Auto 300 /uL (0-450); Eosinophils Percent Auto 3.8 % (2-4); Hematocrit 39.8 % (41-53); Hemoglobin 13.5 g/dL (13.5-17.5); Lymphocytes Absolute Auto 1600 /uL (1100-4500); Lymphocytes Percent Auto 19.9 % (25-40); Mean Corpuscular HGB Conc 33.8 % (30-36); Mean Corpuscular Hemoglobin 29.8 PG (26-34); Mean Corpuscular Volume 88.2 fL (80-100); Monocytes Absolute Auto 1200 /uL (0-900); Monocytes Percent Auto 14.7 % (3-14); Neutrophils Absolute Auto 5000 /uL (1500-7000); Platelet Count 178 X10^3/uL (150-400); Red Blood Cell Count 4.51 X10^6/uL (4.5-5.9); Red Cell Distribution Width 14.9 % (11.6-14.8); White Blood Cell Count 8.2 X10^3/uL (4.5-11.0)
[2022-01-23 09:42] LABS: Alanine Aminotransferase 145 IU/L (<50); Albumin 3.4 g/dL (3.5-5.0); Albumin Globulin Ratio 1.3 (1.0-2.8); Alkaline Phosphatase 128 U/L (38-126); Aspartate Aminotransferase 49 IU/L (17-59); BUN Creatinine Ratio 22.7 (6-22); Blood Urea Nitrogen 27 mg/dL (9-20); Calcium 8.3 mg/dL (8.4-10.2); Carbon Dioxide 24 mmol/L (22-32); Chloride 106 mmol/L (98-107); Cholesterol 149 mg/dL (140-199); Estimated Glomerular Filt Rate > 60 mL/min (>60); Globulin 2.7 g/dL (1.7-4.1); Glucose 119 mg/dL (80-110); HDL Cholesterol 40 mg/dL (40-60); HEMOLYSIS < 15 (0-50); LDL Cholesterol Calculated 95 mg/dL (<100); Potassium 4.7 mmol/L (3.4-5.1); Sodium 138 mmol/L (137-145); Total Protein 6.1 g/dL (6.3-8.2); Triglycerides 68 mg/dL (35-150)
[2022-01-23 09:48] LABS: Microalbumin Urine Random < 0.6 mg/dL (0-1.6)
[2022-01-23 11:05] LABS: TSH w/ Reflex to FT4 3.34 uIU/mL (0.47-4.68)
[2022-01-23 11:51] LABS: Hemoglobin A1C% w Est Avg Glu 6.6 % (4.0-6.0)
== END ==
PROVIDERS: Family Provider Family Medicine; PCP Family Medicine; Referring Provider Family Medicine; Visit Provider Family Medicine
DX: E78.2 Mixed hyperlipidemia (principal); R73.9 Hyperglycemia, unspecified; I10 Essential (primary) hypertension
CPT/HCPCS: 36415; 80053; 80061; 82043; 82570; 83036; 84443; 85025

== ENCOUNTER → 2022-02-09 11:09 | Outpatient (CLI) | payer MEDICARE, SELFPAY | PROVIDERS: Family Provider Family Medicine; PCP Family Medicine; Referring Provider Internal Medicine Cardiovascular Disease; Visit Provider Internal Medicine Cardiovascular Disease | DX: I25.5 Ischemic cardiomyopathy (principal) ==

== ENCOUNTER → 2022-03-13 09:50 | Outpatient (CLI) | payer MEDICARE, SELFPAY ==
[2022-03-13 10:40] LABS: Appearance Urine UA SL CLOUDY; Bilirubin Urine UA NEGATIVE (NEGATIVE); Color Urine UA YELLOW; Glucose Urine UA TRACE g/dL (Negative); Ketones Urine UA NEGATIVE (NEGATIVE); Leukocyte Esterase Urine UA NEGATIVE (NEGATIVE); Nitrite Urine UA NEGATIVE (Negative); Occult Blood Urine UA NEGATIVE (Negative); Protein Urine UA NEGATIVE (Negative); Urobilinogen Urine UA 0.2 E.U./dL (0.2)
[2022-03-13 10:58] LABS: Bacteria Urine None Seen; Culture Indicated Urine Cult Not Indicated; RBC Urine None Seen (0-5/HPF); Squamous Epithelial Cell Urine None Seen (0-5/HPF); WBC Urine None Seen (0-5/HPF)
== END ==
PROVIDERS: Family Provider Family Medicine; PCP Family Medicine; Referring Provider Family Medicine; Visit Provider Family Medicine
DX: R39.89 Other symptoms and signs involving the genitourinary system (principal); Z85.51 Personal history of malignant neoplasm of bladder
CPT/HCPCS: 81001

== ENCOUNTER → 2022-05-22 08:19 | Outpatient (CLI) | payer MEDICARE, SELFPAY ==
[2022-05-22 10:26] LABS: Hemoglobin A1C% w Est Avg Glu 6.6 % (4.0-6.0)
[2022-05-22 10:32] LABS: Alanine Aminotransferase 21 IU/L (<50); Albumin 4.1 g/dL (3.5-5.0); Albumin Globulin Ratio 1.4 (1.0-2.8); Alkaline Phosphatase 116 U/L (38-126); Aspartate Aminotransferase 24 IU/L (17-59); BUN Creatinine Ratio 18.2 (6-22); Bilirubin Total 0.5 mg/dL (0.2-1.3); Blood Urea Nitrogen 25 mg/dL (9-20); Carbon Dioxide 21 mmol/L (22-32); Chloride 104 mmol/L (98-107); Estimated Glomerular Filt Rate 52 mL/min (>60); Globulin 2.9 g/dL (1.7-4.1); Glucose 99 mg/dL (80-110); HEMOLYSIS < 15 (0-50); Potassium 4.3 mmol/L (3.4-5.1); Sodium 140 mmol/L (137-145)
== END ==
PROVIDERS: Family Provider Family Medicine; PCP Family Medicine; Referring Provider Family Medicine; Visit Provider Family Medicine
DX: R73.9 Hyperglycemia, unspecified (principal); I10 Essential (primary) hypertension; R74.8 Abnormal levels of other serum enzymes
CPT/HCPCS: 36415; 80053; 83036

== ENCOUNTER → 2022-07-09 08:38 | Outpatient (CLI) | payer MEDICARE, SELFPAY ==
[2022-07-09 09:16] LABS: Alanine Aminotransferase 23 IU/L (<50); Albumin 3.9 g/dL (3.5-5.0); Albumin Globulin Ratio 1.3 (1.0-2.8); Alkaline Phosphatase 95 U/L (38-126); Aspartate Aminotransferase 22 IU/L (17-59); BUN Creatinine Ratio 17.5 (6-22); Bilirubin Total 0.7 mg/dL (0.2-1.3); Blood Urea Nitrogen 21 mg/dL (9-20); Calcium 8.9 mg/dL (8.4-10.2); Carbon Dioxide 23 mmol/L (22-32); Chloride 107 mmol/L (98-107); Estimated Glomerular Filt Rate > 60 mL/min (>60); Glucose 97 mg/dL (80-110); HEMOLYSIS < 15 (0-50); Potassium 4.3 mmol/L (3.4-5.1); Sodium 140 mmol/L (137-145); Total Protein 6.9 g/dL (6.3-8.2)
== END ==
PROVIDERS: Family Provider Family Medicine; PCP Family Medicine; Referring Provider Family Medicine; Visit Provider Family Medicine
DX: I10 Essential (primary) hypertension (principal)
CPT/HCPCS: 36415; 80053

== ENCOUNTER → 2022-07-31 13:56 | Outpatient (CLI) | payer MEDICARE, SELFPAY ==
--- NOTE | 2022-07-31 13:58 | DI.US.S_ITS ---
PROCEDURE: US ABD AORTA ANEURYSM SCREEN INDICATIONS: AAA TECHNIQUE: Real time scanning was performed of the aorta and iliac arteries, with image documentation. COMPARISON: [facility], CT, CT ABDOMEN PELVIS W CON, 07/02/2021, 1:27. [facility], ABD AORTA ANEURYSM SCREENING, 01/24/2012, 10:36. [facility], US ABD AORTA ANEURYSM SCREEN, 07/25/2021, 10:59. FINDINGS: Aorta: Proximal aortic diameter measures 2.9 x 2.8 cm. Mid-aorta measures 2.2 x 2.5 cm. A distal abdominal aortic aneurysm is seen that measures 4.3 cm AP x 3.9 cm transversely. Previously, this measured 3.4 x 3.9 cm. Iliac arteries: Right common iliac artery measures 1.3 x 1.5 cm. Left common iliac artery measures 1.5 x 1.4 cm. IMPRESSION: Distal abdominal aortic aneurysm, now measuring 4.3 cm AP. This has progressed over time. Dictated by: Otoniel Donahue M.D. on 07/31/2022 at 15:50 Approved by: Otoniel Donahue M.D. on 07/31/2022 at 15:52
== END ==
PROVIDERS: Family Provider Family Medicine; PCP Family Medicine; Referring Provider Family Medicine; Visit Provider Family Medicine
DX: I71.40 Abdominal aortic aneurysm, without rupture, unspecified (principal)
CPT/HCPCS: 76706

== ENCOUNTER → 2022-09-20 12:25 | Outpatient (CLI) | payer MEDICARE, SELFPAY ==
--- NOTE | 2022-09-26 08:34 | PM.PFT.1 ---
Pulmonary Function Test Referral & Results Date Patient Seen: 09/20/22 Results: The spirometry demonstrates an FVC of 3.09 L which is 77% of predicted. The FEV1 was measured at 2.58 L which is 90% of predicted. The FEV1/FVC ratio was 83 which is 117% of predicted. Following the administration of bronchodilator there was 25% improvement in FEF 25-75%. Lung volumes show an SVC of 3.31 L which is 75% of predicted. The diffusing capacity was measured at 9.63 which is 29% of predicted. No hemoglobin value was provided, so no correction for potential anemia could be made, if appropriate. The maximum voluntary ventilation was reduced Interpretation: This study demonstrates moderate restrictive lung disease based on reduction in lung volumes/SVC There is a severe reduction diffusing capacity suggesting significant disease at the capillary alveolar level, to the point where patient may well be hypoxic at times on room air Clinical correlation suggested
== END ==
PROVIDERS: Family Provider Family Medicine; PCP Family Medicine; Referring Provider Specialist; Visit Provider Specialist
DX: J84.9 Interstitial pulmonary disease, unspecified (principal); R06.09 Other forms of dyspnea; Z87.891 Personal history of nicotine dependence
CPT/HCPCS: 94060; 94726; 94729

== ENCOUNTER → 2022-10-16 09:22 | Outpatient (CLI) | payer MEDICARE, SELFPAY ==
[2022-10-16 09:47] LABS: Appearance Urine UA CLEAR; Bilirubin Urine UA NEGATIVE (NEGATIVE); Color Urine UA YELLOW; Glucose Urine UA NEGATIVE (Negative); Ketones Urine UA NEGATIVE (NEGATIVE); Leukocyte Esterase Urine UA NEGATIVE (NEGATIVE); Nitrite Urine UA NEGATIVE (Negative); Occult Blood Urine UA NEGATIVE (Negative); Protein Urine UA NEGATIVE (Negative); Urobilinogen Urine UA 0.2 E.U./dL (0.2); pH Urine UA 5.5 (4.5-8.0)
[2022-10-16 09:56] LABS: Bacteria Urine None Seen; Culture Indicated Urine Cult Not Indicated; RBC Urine None Seen (0-5/HPF); Urine Comments Microscopic Normal; WBC Urine None Seen (0-5/HPF)
[2022-10-16 11:52] LABS: Prostate Specific Antigen Scrn 0.288 ng/mL (0.1-4.0)
== END ==
PROVIDERS: Family Provider Family Medicine; PCP Family Medicine; Referring Provider Family Medicine; Visit Provider Family Medicine
DX: Z12.5 Encounter for screening for malignant neoplasm of prostate (principal); C67.9 Malignant neoplasm of bladder, unspecified; R31.9 Hematuria, unspecified
CPT/HCPCS: 36415; 81001; G0103

== ENCOUNTER → 2022-10-19 07:44 | Outpatient (CLI) | payer MEDICARE, SELFPAY ==
--- NOTE | 2022-10-19 | DI.ECHO.S_ITS ---
[place] [facility]---------+ [facility] +---------+ : : [address] : : : : [id number] : : : : Phone: [phone] Echocardiogram Report + + :Name: DOUGLAS STAUFFER Study Date: 10/19/2022 Height: 70 in : :[facility] ReadingLocation: Weight: 190 lb : : Gender: Male BSA: 2.0 m2 : :: 1940 Age: 82 yrs BP: 128/86 mmHg: :Reason For Study: LEFT BUNDLE BRANCH BLOCK HR: 62 : :Ordering Physician: CHARLES, : :JANET Performed By: WAN FRANKLIN : :Referring: JANET SOTO : + + Interpretation Summary The left ventricle is normal in size. LV ejection fraction 25 to 30%. Previously 40 to 45%. Compared to the prior exam, the left ventricular function is reduced. There is moderate to severe global hypokinesis of the left ventricle. There is a significant dyssynchronous contraction pattern, consistent with a conduction abnormality. The right ventricle is mildly dilated. The right ventricular systolic function is normal. The aortic valve is moderately calcified. There is mild to moderately reduced leaflet mobility. There is no hemodynamically significant valvular aortic stenosis. There is aortic root sclerosis/calcification. The IVC is of normal diameter and collapses greater than 50% with a sniff. This suggests a low right atrial pressure of 3 mm Hg. Procedure: A two-dimensional transthoracic echocardiogram with color flow and Doppler was performed. The study quality was technically adequate. Comparison is made with the echocardiogram of 12/28/2019. The patient had a bundle branch block rhythm during the exam. The patient was in normal sinus rhythm during the exam. Left Ventricle: The left ventricle is normal in size. Proximal septal thickening is noted. There is no thrombus. A false chord is noted (normal variant). Compared to the prior exam, the left ventricular function is reduced. The ejection fraction is estimated to be 25-30%. There is moderate to severe global hypokinesis of the left ventricle. There is a significant dyssynchronous contraction pattern, consistent with a conduction abnormality. Diastolic parameters suggest a relaxation abnormality of the left ventricle, consistent with probable normal filling pressures. Right Ventricle: The right ventricle is mildly dilated. The right ventricular systolic function is normal. Atria: The left atrium is moderately dilated. There has been no significant change since the previous study. The right atrium is normal in size. There is no Doppler evidence for an interatrial shunt. Mitral Valve: Heavy calcification of posterior mitral annulus. No significant mitral valve stenosis. There is mild mitral regurgitation. Aortic Valve: The aortic valve is trileaflet. The aortic valve is moderately calcified. There is mild to moderately reduced leaflet mobility. There is no hemodynamically significant valvular aortic stenosis. There is trace aortic regurgitation. Tricuspid Valve: The tricuspid valve is normal. Pulmonary artery pressures cannot be estimated because of the lack of a measurable TR jet velocity. There is mild tricuspid regurgitation. Pulmonic Valve: The pulmonic valve leaflets are thin and pliable; valve motion is normal. There is mild pulmonic regurgitation. Great Vessels: The aortic root is normal size. There is aortic root sclerosis/calcification. The ascending aorta is normal in size. The aortic arch could not be visualized. The IVC is of normal diameter and collapses greater than 50% with a sniff. This suggests a low right atrial pressure of 3 mm Hg. Pericardium/ Pleura There is no pericardial effusion. There is no pleural effusion. MMode/2D Measurements & Calculations LVIDd: 4.3 cm LVOT diam: 2.0 cm LVIDs: 3.6 cm Ao root diam: 3.4 cm FS: 16.0 % asc Aorta Diam: 3.3 cm IVSd: 0.93 cm LVPWd: 0.95 cm LV hidalgo. diameter/BSA (cm/m^2): 2.1 LV sys. diameter/BSA (cm/m^2): 1.8 LA A2 area: 21.0 cm2 RA long axis: 4.5 cm LA A4 area: 17.2 cm2 RA area: 11.1 cm2 LA length (vol): 4.7 cm RA vol: 23.4 ml LA vol: 65.6 ml RA : 11.4 ml/m2 LA vol index: 32.1 ml/m2 IVC diam: 1.2 cm TAPSE: 1.7 cm Doppler Measurements & Calculations Ao V2 max: 172.8 cm/sec LVOT Max Walker: 84.4 cm/sec Ao V2 mean: 135.6 cm/sec LV V1 max P.8 mmHg Ao max P.9 mmHg LV V1 VTI: 18.0 cm Ao mean P.7 mmHg JOURDAN(I,D): 1.7 cm2 Ao V2 VTI: 33.6 cm JOURDAN(V,D): 1.5 cm2 sev ratio: 0.54 JOURDAN indexed to BSA (cm^2/m^2): 0.82 MV E max walker: 43.6 cm/sec PA V2 max: 75.7 cm/sec MV A max walker: 85.1 cm/sec PA V2 mean: 44.4 cm/sec MV E/A: 0.51 PA mean P.91 mmHg Med Peak E' Walker: 6.5 cm/sec PA pr(Accel): 46.5 mmHg E/E' med: 6.7 Lat Peak E' Walker: 4.4 cm/sec E/E' lat: 9.9 E/e' average: 8.3 MV dec time: 0.26 sec SV(LVOT): 56.3 ml Reading Physician:03:03 PM
== END ==
PROVIDERS: Family Provider Family Medicine; PCP Family Medicine; Referring Provider Internal Medicine Cardiovascular Disease; Visit Provider Internal Medicine Cardiovascular Disease
DX: I08.1 Rheumatic disorders of both mitral and tricuspid valves (principal); I44.7 Left bundle-branch block, unspecified
CPT/HCPCS: 93306

== ENCOUNTER → 2022-11-09 06:54 | Outpatient (CLI) | payer MEDICARE, SELFPAY | PROVIDERS: Family Provider Family Medicine; PCP Family Medicine; Referring Provider Internal Medicine Cardiovascular Disease; Visit Provider Internal Medicine Cardiovascular Disease | DX: I50.20 Unspecified systolic (congestive) heart failure (principal) | CPT/HCPCS: 36415; 85610 ==

== ENCOUNTER → 2022-11-19 06:27 | Outpatient (CLI) | payer MEDICARE, SELFPAY ==
[2022-11-19 08:50] LABS: BUN Creatinine Ratio 12.2 (6-22); Blood Urea Nitrogen 18 mg/dL (9-20); Calcium 8.8 mg/dL (8.4-10.2); Carbon Dioxide 22 mmol/L (22-32); Chloride 107 mmol/L (98-107); Estimated Glomerular Filt Rate 48 mL/min (>60); Glucose 102 mg/dL (80-110); HEMOLYSIS < 15 (0-50); Potassium 4.1 mmol/L (3.4-5.1); Sodium 139 mmol/L (137-145)
== END ==
PROVIDERS: Family Provider Family Medicine; PCP Family Medicine; Referring Provider Internal Medicine Cardiovascular Disease; Visit Provider Internal Medicine Cardiovascular Disease
DX: I50.20 Unspecified systolic (congestive) heart failure (principal)
CPT/HCPCS: 36415; 80048

== ENCOUNTER → 2022-12-04 08:16 | Outpatient (CLI) | payer MEDICARE, SELFPAY ==
[2022-12-04 10:18] LABS: BUN Creatinine Ratio 18.5 (6-22); Blood Urea Nitrogen 29 mg/dL (9-20); Calcium 9.1 mg/dL (8.4-10.2); Carbon Dioxide 24 mmol/L (22-32); Chloride 104 mmol/L (98-107); Estimated Glomerular Filt Rate 44 mL/min (>60); Glucose 89 mg/dL (80-110); HEMOLYSIS < 15 (0-50); Potassium 4.7 mmol/L (3.4-5.1); Sodium 136 mmol/L (137-145)
== END ==
PROVIDERS: Family Provider Family Medicine; PCP Family Medicine; Referring Provider Internal Medicine Cardiovascular Disease; Visit Provider Internal Medicine Cardiovascular Disease
DX: I50.20 Unspecified systolic (congestive) heart failure (principal)
CPT/HCPCS: 36415; 80048

== ENCOUNTER → 2022-12-25 10:24 | Outpatient (CLI) | payer MEDICARE, SELFPAY ==
[2022-12-25 11:23] LABS: BUN Creatinine Ratio 13.6 (6-22); Blood Urea Nitrogen 20 mg/dL (9-20); Calcium 8.8 mg/dL (8.4-10.2); Carbon Dioxide 22 mmol/L (22-32); Chloride 110 mmol/L (98-107); Estimated Glomerular Filt Rate 48 mL/min (>60); Glucose 95 mg/dL (80-110); HEMOLYSIS < 15 (0-50); Sodium 140 mmol/L (137-145)
== END ==
PROVIDERS: Family Provider Family Medicine; PCP Family Medicine; Referring Provider Internal Medicine Cardiovascular Disease; Visit Provider Internal Medicine Cardiovascular Disease
DX: I50.20 Unspecified systolic (congestive) heart failure (principal)
CPT/HCPCS: 36415; 80048

== ENCOUNTER → 2023-02-14 06:51 | Outpatient (CLI) | payer MEDICARE, SELFPAY ==
[2023-02-14 07:50] LABS: Add Manual Diff / Slide Review NO; Basophils Absolute Auto 100 /uL (0-100); Basophils Percent Auto 0.8 % (0-2); Eosinophils Absolute Auto 300 /uL (0-450); Eosinophils Percent Auto 3.1 % (2-4); Hemoglobin 14.5 g/dL (13.5-17.5); Lymphocytes Absolute Auto 2200 /uL (1100-4500); Lymphocytes Percent Auto 21.6 % (25-40); Mean Corpuscular HGB Conc 34.4 % (30-36); Mean Corpuscular Hemoglobin 30.7 PG (26-34); Mean Corpuscular Volume 89.2 fL (80-100); Monocytes Absolute Auto 1200 /uL (0-900); Monocytes Percent Auto 11.8 % (3-14); Neutrophils Absolute Auto 6500 /uL (1500-7000); Neutrophils Percent Auto 62.7 % (50-75); Platelet Count 173 X10^3/uL (150-400); Red Blood Cell Count 4.71 X10^6/uL (4.5-5.9); Red Cell Distribution Width 14.2 % (11.6-14.8); White Blood Cell Count 10.4 X10^3/uL (4.5-11.0)
[2023-02-14 08:03] LABS: Blood Urea Nitrogen 19 mg/dL (9-20); Calcium 8.7 mg/dL (8.4-10.2); Carbon Dioxide 21 mmol/L (22-32); Chloride 107 mmol/L (98-107); Estimated Glomerular Filt Rate 53 mL/min (>60); Glucose 97 mg/dL (80-110); HEMOLYSIS 15 (0-50); Potassium 4.1 mmol/L (3.4-5.1); Sodium 138 mmol/L (137-145)
== END ==
PROVIDERS: Family Provider Family Medicine; PCP Family Medicine; Referring Provider Internal Medicine Cardiovascular Disease; Visit Provider Internal Medicine Cardiovascular Disease
DX: I42.8 Other cardiomyopathies (principal)
CPT/HCPCS: 36415; 80048; 85025

== ENCOUNTER → 2023-06-04 11:36 | Outpatient (CLI) | payer MEDICARE, SELFPAY ==
[2023-06-04 13:33] LABS: Alanine Aminotransferase 17 IU/L (<50); Albumin 3.8 g/dL (3.5-5.0); Albumin Globulin Ratio 1.4 (1.0-2.8); Alkaline Phosphatase 80 U/L (38-126); Aspartate Aminotransferase 22 IU/L (17-59); BUN Creatinine Ratio 15.6 (6-22); Bilirubin Total 1.1 mg/dL (0.2-1.3); Blood Urea Nitrogen 22 mg/dL (9-20); Calcium 9.5 mg/dL (8.4-10.2); Carbon Dioxide 22 mmol/L (22-32); Chloride 110 mmol/L (98-107); Estimated Glomerular Filt Rate 50 mL/min (>60); Globulin 2.8 g/dL (1.7-4.1); Glucose 87 mg/dL (80-110); HEMOLYSIS < 15 (0-50); Potassium 4.1 mmol/L (3.4-5.1); Sodium 140 mmol/L (137-145); Total Protein 6.6 g/dL (6.3-8.2)
== END ==
PROVIDERS: PCP Family Medicine; Referring Provider Internal Medicine Cardiovascular Disease; Visit Provider Internal Medicine Cardiovascular Disease
DX: I42.8 Other cardiomyopathies (principal)
CPT/HCPCS: 36415; 80053

== ENCOUNTER 2023-07-05 13:25 | Inpatient (IN) | payer MEDICARE, SELFPAY ==
[2023-07-05] VITALS (23 sets, daily range): BP systolic 89–159; BP diastolic 57–86; PULSE 74–130; RESP 16–36; TEMP 36.6–37.2; O2SAT 82–97; BMI 27.2
--- NOTE | 2023-07-05 14:00 | DI.RAD.S_ITS ---
PROCEDURE: XR CHEST 1V INDICATIONS: Shortness of breath TECHNIQUE: One view of the chest was acquired. COMPARISON: [facility], CT, CT HIGH RESOLUTION CHEST, 04/05/2021, 14:56. [facility], CR, XR CHEST 2 VIEWS, 02/18/2023, 17:09. [facility], CR, XR CHEST 2V, 01/11/2022, 13:56. FINDINGS: Surgical changes and devices: Left pacemaker/AICD. Lungs and pleura: Coarsened pulmonary markings. No consolidation identified.. No pleural effusions or pneumothorax. Mediastinum: Mediastinal contours appear unchanged. Heart size is within normal limits. Bones and chest wall: No suspicious bony lesions. Overlying soft tissues appear unremarkable. IMPRESSION: No consolidation identified. Similar coarsened pulmonary markings. Fibrotic change seen on remote CT. Dictated by: Linwood Rodriguez M.D. on 07/05/2023 at 14:33 Approved by: Linwood Rodriguez M.D. on 07/05/2023 at 14:36
[2023-07-05] MEDS: ONDANSETRON 4 MG/2 ML INJ IV (14:03)
[2023-07-05 14:22] LABS: Add Manual Diff / Slide Review NO; Basophils Absolute Auto 100 /uL (0-100); Basophils Percent Auto 0.7 % (0-2); Eosinophils Absolute Auto 100 /uL (0-450); Eosinophils Percent Auto 0.8 % (2-4); Hematocrit 41.6 % (41-53); Hemoglobin 14.1 g/dL (13.5-17.5); INR 1.2 (0.9-1.3); Lymphocytes Absolute Auto 700 /uL (1100-4500); Lymphocytes Percent Auto 6.8 % (25-40); Mean Corpuscular HGB Conc 33.9 % (30-36); Mean Corpuscular Hemoglobin 29.8 PG (26-34); Monocytes Absolute Auto 1500 /uL (0-900); Monocytes Percent Auto 15.8 % (3-14); Neutrophils Absolute Auto 7400 /uL (1500-7000); Neutrophils Percent Auto 75.9 % (50-75); Platelet Count 167 X10^3/uL (150-400); Red Blood Cell Count 4.73 X10^6/uL (4.5-5.9); Red Cell Distribution Width 15.7 % (11.6-14.8); White Blood Cell Count 9.8 X10^3/uL (4.5-11.0)
[2023-07-05 14:28] LABS: Alanine Aminotransferase 19 IU/L (<50); Albumin 4.1 g/dL (3.5-5.0); Albumin Globulin Ratio 1.3 (1.0-2.8); Alkaline Phosphatase 78 U/L (38-126); Aspartate Aminotransferase 23 IU/L (17-59); BUN Creatinine Ratio 11.3 (6-22); Bilirubin Total 1.3 mg/dL (0.2-1.3); Blood Urea Nitrogen 14 mg/dL (9-20); Calcium 9.1 mg/dL (8.4-10.2); Carbon Dioxide 23 mmol/L (22-32); Chloride 105 mmol/L (98-107); Estimated Glomerular Filt Rate 58 mL/min (>60); Globulin 3.1 g/dL (1.7-4.1); Glucose 113 mg/dL (80-110); HEMOLYSIS < 15 (0-50); Lactate (Lactic Acid) 1.4 mmol/L (0.7-2.1); Potassium 4.5 mmol/L (3.4-5.1); Sodium 136 mmol/L (137-145); Total Protein 7.2 g/dL (6.3-8.2)
--- NOTE | 2023-07-05 14:30 | PC.NURSE ---
Pt uses 2.5L oxygen at bedtime at home due to pulmonary fibrosis. Pt requiring 3L o2 today while in the ER.
[2023-07-05 14:35] LABS: Influenza A - CEPHEID Flu A NEGATIVE (NEGATIVE); Influenza B - CEPHEID Flu B NEGATIVE (NEGATIVE); Respiratory Syncytial Virus Negative (Negative)
[2023-07-05 14:36] LABS: COVID-19 CEPHEID 4-PLEX PCR POSITIVE (Negative)
[2023-07-05 14:40] LABS: NT-proBNP (BNP-Adult 18+) 1320 pg/mL (<450); Troponin I < 0.012 ng/mL (0.01-0.034)
--- NOTE | 2023-07-05 16:45 | PC.NURSE ---
Pt found on side of bed pulling off his wrist band and vitals monitoring cords. Pt requesting to use the restroom. Pt was assisted to the bathroom stand by assist without oxygen. Pt was sitting on the toilet in the bathroom. I brought the transport oxygen tank into the bathroom and patient had walked over to the shower, dropped his pants, and was standing while holding onto the side rails. I put the nasal cannula on patient at 4L/min and patient became weak and got down onto his knees in the shower stating I just need to rest here awhile. Patient was assisted up into a wheelchair with the help of another RN. Pt wheeled to his room and o2 was 88% on 4L NC while sitting in the wheelchair. Pt's director of restaurants leads were connected and the monitor displayed Vtach. I asked patient how he is feeling and patient states I feel great, lets get this show going. See monitor strips printed in chart. Patient was able to stand and pivot to sit on the bed. RT was called for EKG and Dr. Ontiveros was immediately notified. EKG reads ventricular-paced rhythm, abnormal ECG at 98beats per minute. Pt remains on 4L NC in bed, both red rails up for patient safety, call light in reach. Pt's daughter is now at bedside and was updated.
--- NOTE | 2023-07-05 16:52 | ED_ITS ---
HPI - SOB/Dyspnea General Chief Complaint: Shortness of Breath/Dyspnea Stated Complaint: sent by Dr Soto Time Seen by Provider: 07/05/23 16:52 Source: patient and family Mode of arrival: Wheelchair Limitations: no limitations History of Present Illness HPI Narrative: 81-year-old male history of pulmonary fibrosis, hypertension, pacemaker and AICD with recent EF on 07/06/23 with EF of 55% in Dr. Guzmán office. Patient presents with several days of cough, increased shortness of breath, he denies any new chest pain. States he has been bouncing off the moore. Patient denies any falls or head injuries. No numbness tingling or weakness. He describes bouncing off the moore for several months. Patient denies any fevers. No nausea or vomiting today but states he was nauseated yesterday. Denies any diarrhea or constipation. Denies any urinary symptoms. Denies any swelling of extremities. Patient states that he does use home O2 typically in the evenings but occasionally during the daytime. Patient saw Dr. Soto, earlier today who sent him for evaluation for cold cough and congestive symptoms. He notes that he had EKG which has been particularly paced with a b.i.d. speak good he had an echo most recent EF being 45-50%. He is got noncritical coronary artery disease with a negative catheterization on 11/15/22. Related Data Home Medications Medication Instructions Recorded Confirmed ipratropium bromide 42 mcg (0.06 2 spray intranasal BID 08/24/21 12/27/22 %) nasal spray Previous Rx's Medication Instructions Recorded indomethacin 25 mg capsule 25 mg PO BID PRN gout #33 tabs 04/22/13 aspirin 325 mg tablet 325 mg PO DAILY #30 tabs 11/18/20 metoprolol succinate 25 mg 12.5 mg (1/2 x 25 mg) PO DAILY #90 04/13/21 tablet,extended release 24 hr tabs losartan 25 mg tablet 12.5 mg (1/2 x 25 mg) PO DAILY #45 08/24/21 tabs albuterol sulfate 90 mcg/actuation 2 puff inhalation Q4-6H PRN 01/11/22 aerosol inhaler shortness of breath or wheezing #8.5 grams probenecid 500 mg tablet See Rx Instructions .Route 05/22/22 .COMPLEX #180 tabs pantoprazole 40 mg tablet,delayed See Rx Instructions .Route 04/11/23 release .COMPLEX #180 tabs atorvastatin 80 mg tablet See Rx Instructions .Route 06/03/23 .COMPLEX #100 tabs Allergies Allergy/AdvReac Type Severity Reaction Status Date / Time No Known Drug Allergies Allergy Verified 12/27/22 08:23 Review of Systems Review of Systems ROS Unobtainable: All systems reviewed & are unremarkable except as noted in HPI and below Patient History Medical History History of malignant neoplasm of bladder Interstitial lung disease AAA (abdominal aortic aneurysm) Dysphonia Esophageal dysmotility Chronic cough Hayfever Gout Foot pain (2013) Mumps Measles Chicken pox Hearing loss Cataract Diverticular disease Colon polyps Bladder cancer (2007) Surgical History History of cataract extraction with lens replacement History of bladder surgery (2007) Anesthesia Status post hernia repair (1964) Status post appendectomy (1964) Family History Father Heart disease Mother Cancer Brother No problems noted. Sister No problems noted. Social History marital status: number of children: 6 household members: spouse occupational status: other Smoking Status: Former smoker alcohol intake: current caffeine: Yes Type(s) of exercise: none Smoking Status: Former smoker alcohol intake frequency: a few times a week Substance Use Type: does not use Exam Narrative Exam Narrative: GEN: well nourished, well appearing male, alert and oriented, patient appears to be in mild distress. HEENT: Atraumatic, pupils are equal round reactive to light, extraocular movements are intact, nares are clear, there is no conjunctival pallor. Throat is clear without any exudates, erythema, tonsillar enlargement or uvular deviation HEART: Regular rate and rhythm without murmur, clicks, rubs. Pulses are equal in upper and lower extremities. No edema bilateral lower extremities. LUNGS:Lungs clear to auscultation, no wheezes, rales, crackles, chest moves symmetrically ABD:bowel sounds normal, soft, non-tender, no guarding, rebound, rigidity, no masses noted, no hepatosplenomegaly :No CVA tenderness MSCL: Non-tender, no muscle atrophy, muscles strength 5/5 upper and lower extremities, full range of motion bilateral upper extremities NEURO:CN 2-12 intact, sensation normal Initial Vital Signs Initial Vital Signs: Vital Signs Temperature 98 F 07/05/23 13:28 Pulse Rate 88 07/05/23 13:28 Respiratory Rate 16 07/05/23 13:28 Blood Pressure 150/86 H 07/05/23 13:28 Pulse Oximetry 85 L 07/05/23 13:28 Oxygen Delivery Method Room Air 07/05/23 13:28 Course Orders Ordered: ED Orders 07/06/23 04:50 BMP [Basic Metabolic Panel] DAILY CBC Auto Diff [Complete Blood Count AUTO DIFF] DAILY 07/07/23 05:00 BMP [Basic Metabolic Panel] DAILY CBC Auto Diff [Complete Blood Count AUTO DIFF] DAILY 07/08/23 05:00 BMP [Basic Metabolic Panel] DAILY CBC Auto Diff [Complete Blood Count AUTO DIFF] DAILY 07/09/23 05:00 BMP [Basic Metabolic Panel] DAILY CBC Auto Diff [Complete Blood Count AUTO DIFF] DAILY 07/10/23 05:00 BMP [Basic Metabolic Panel] DAILY CBC Auto Diff [Complete Blood Count AUTO DIFF] DAILY Acetaminophen (Acetaminophen 325 Mg Tablet) 650 mg PO Q6H [facility] Last Admin: 07/06/23 06:15 Dose: Not Given Documented By: Admin: 07/06/23 01:07 Dose: Not Given Documented By: Admin: 07/05/23 22:17 Dose: Not Given Documented By: SR Acetylcysteine (Acetylcysteine (Po/Inh) 200 Mg/Ml Vial) 600 mg INH DAILY [facility] Last Admin: 07/05/23 19:35 Dose: 600 mg Documented By: BB Albuterol/Ipratropium (Albuterol/Ipratropium 3 Ml Ampul) 3 ml INH [id number] [facility] Last Admin: 07/05/23 22:17 Dose: Not Given Documented By: SR Aspirin (Aspirin Ec 325 Mg Tablet) 325 mg PO DAILY [facility] Atorvastatin Calcium (Atorvastatin 20 Mg Tablet) 20 mg PO BEDTIME [facility] Last Admin: 07/05/23 22:17 Dose: 20 mg Documented By: SR Benzonatate (Benzonatate 100 Mg Capsule) 100 mg PO TID PRN PRN Reason: Cough Last Admin: 07/05/23 19:36 Dose: 100 mg Documented By: BB Dexamethasone (Dexamethasone 10 Mg/Ml Vial) 6 mg IV DAILY [facility] Stop: 07/15/23 08:59 Enoxaparin Sodium (Enoxaparin 40 Mg/0.4 Ml Syringe) 40 mg SUBCUT DAILY [facility] Guaifenesin (Guaifenesin Er 600 Mg Tab) 600 mg PO BID [facility] Last Admin: 07/05/23 22:17 Dose: 600 mg Documented By: SR Remdesivir 100 mg/ Sodium (Chloride) 230 mls @ 250 mls/hr IV DAILY@1900 [facility] Stop: 07/09/23 19:56 Ipratropium [place] (Ipratropium 0.06% Nasal 15 Ml) 2 spray NASAL BID [facility] Last Admin: 07/05/23 22:30 Dose: 2 spray Documented By: SR Losartan Potassium (Losartan 25 Mg Tablet) 12.5 mg PO DAILY [facility] Melatonin (Melatonin 3 Mg Tablet) 6 mg PO BEDTIME PRN PRN Reason: Insomnia Metoprolol Succinate (Metoprolol Er 25 Mg Tablet) 12.5 mg PO DAILY [facility] Morphine Sulfate (Morphine 2 Mg/Ml Inj) 2 mg IV Q4HR PRN PRN Reason: Pain or air hunger Last Admin: 07/05/23 19:35 Dose: 2 mg Documented By: BB Naloxone HCl (Naloxone 0.4 Mg/Ml Vial) 0.2 mg IV Q2MIN PRN PRN Reason: Opiate Reversal Ondansetron HCl (Ondansetron 4 Mg/2 Ml Inj) 4 mg IV Q4HR PRN PRN Reason: NV Pantoprazole Sodium (Pantoprazole Dr 40 Mg Tablet) 40 mg PO BID [facility] Last Admin: 07/05/23 22:17 Dose: 40 mg Documented By: SR Polyethylene Glycol (Polyethylene Glycol 3350 17 Gm Powd.Pack) 17 gm PO DAILY PRN PRN Reason: Constipation Sennosides (Sennosides 8.6 Mg Tablet) 8.6 mg PO BID PRN PRN Reason: Constipation Discontinued Medications Dexamethasone (Dexamethasone 10 Mg/Ml Vial) 6 mg IV NOW ONE Stop: 07/05/23 18:27 Last Admin: 07/05/23 22:16 Dose: 6 mg Documented By: SR Remdesivir 200 mg/ Sodium (Chloride) 250 mls @ 250 mls/hr IV NOW ONE Stop: 07/05/23 19:25 Last Infusion: 07/05/23 20:00 Dose: Infused Documented By: Admin: 07/05/23 19:35 Dose: 250 mls/hr Documented By: REGINALD Ondansetron HCl (Ondansetron 4 Mg/2 Ml Inj) 4 mg IV NOW ONE Stop: 07/05/23 14:01 Last Admin: 07/05/23 14:03 Dose: 4 mg Documented By: RAN Vital Signs Vital signs: Vital Signs - 8 hr 07/05/23 13:28 07/05/23 13:54 07/05/23 14:09 Temperature 98 F Pulse Rate 88 Respiratory Rate 16 Blood Pressure 150/86 H 159/86 H Pulse Oximetry 85 L 94 Oxygen Delivery Method Room Air Nasal Cannula Oxygen Flow Rate 4 07/05/23 14:30 07/05/23 14:30 07/05/23 15:00 Temperature Pulse Rate 81 Respiratory Rate 29 H Blood Pressure 143/81 H 135/74 Pulse Oximetry 94 Oxygen Delivery Method Nasal Cannula Oxygen Flow Rate 3 07/05/23 15:00 07/05/23 15:30 07/05/23 15:30 Temperature Pulse Rate 79 76 Respiratory Rate 23 22 Blood Pressure 123/68 Pulse Oximetry 94 93 Oxygen Delivery Method Nasal Cannula Oxygen Flow Rate 3 07/05/23 16:00 07/05/23 16:00 07/05/23 16:39 Temperature Pulse Rate 74 Respiratory Rate 25 H Blood Pressure 123/66 Pulse Oximetry 94 97 Oxygen Delivery Method Nasal Cannula Nasal Cannula Oxygen Flow Rate 3 3 07/05/23 16:48 07/05/23 16:48 07/05/23 17:00 Temperature Pulse Rate 130 H Respiratory Rate 31 H Blood Pressure 125/76 128/78 Pulse Oximetry 82 L Oxygen Delivery Method Nasal Cannula Oxygen Flow Rate 4 07/05/23 17:00 Temperature Pulse Rate 97 H Respiratory Rate 31 H Blood Pressure Pulse Oximetry 93 Oxygen Delivery Method Nasal Cannula Oxygen Flow Rate 4 MDM - SOB/Dyspnea Lab Data 07/06/23 04:50 07/06/23 04:50 Labs: Lab Results 07/05/23 07/05/23 Range/Units 13:45 14:07 WBC 9.8 (4.5-11.0) X10^3/uL RBC 4.73 (4.5-5.9) X10^6/uL Hgb 14.1 (13.5-17.5) g/dL Hct 41.6 (41-53) % MCV 88.0 (80-100) fL MCH 29.8 (26-34) PG MCHC 33.9 (30-36) % RDW 15.7 H (11.6-14.8) % Plt Count 167 (150-400) X10^3/uL Neut % (Auto) 75.9 H (50-75) % Lymph % (Auto) 6.8 L (25-40) % Centre % (Auto) 15.8 H (3-14) % Eos % (Auto) 0.8 L (2-4) % Baso % (Auto) 0.7 (0-2) % Neut # (Auto) 7400 H (3133-8491) /uL Lymph # (Auto) 700 L (8077-9621) /uL [place] # (Auto) 1500 H (0-900) /uL Eos # (Auto) 100 (0-450) /uL Baso # (Auto) 100 (0-100) /uL PT 14.0 H (9.4-12.5) SECONDS INR 1.2 (0.9-1.3) Sodium 136 L (137-145) mmol/L Potassium 4.5 (3.4-5.1) mmol/L Chloride 105 (98-107) mmol/L Carbon Dioxide 23 (22-32) mmol/L BUN 14 (9-20) mg/dL Creatinine 1.24 (0.66-1.25) mg/dL Estimated GFR 58 L (>60) mL/min BUN/Creatinine Ratio 11.3 (6-22) Glucose 113 H (80-110) mg/dL Lactate 1.4 (0.7-2.1) mmol/L Calcium 9.1 (8.4-10.2) mg/dL Magnesium 1.7 (1.6-2.3) mg/dL Total Bilirubin 1.3 (0.2-1.3) mg/dL AST 23 (17-59) IU/L ALT 19 (<50) IU/L Alkaline Phosphatase 78 (38-126) U/L Troponin I < 0.012 (0.01-0.034) ng/mL NT-Pro-B Natriuret Pep 1320 H (<450) pg/mL Total Protein 7.2 (6.3-8.2) g/dL Albumin 4.1 (3.5-5.0) g/dL Globulin 3.1 (1.7-4.1) g/dL Albumin/Globulin Ratio 1.3 (1.0-2.8) Procalcitonin 0.07 (<0.5) ng/mL SARS-CoV-2 (PCR) Positive H (Negative) Influenza A (RT-PCR) Flu a negative (NEGATIVE) Influenza B (RT-PCR) Flu b negative (NEGATIVE) RSV (PCR) Negative (Negative) Imaging Data Chest x-ray: Radiologist's Impression: Close Chest X-Ray (Signed) MichaelLinwood - 07/05/23 Echocardiogram Ultrasound (Signed) Luz Marina Soto - 10/19/22 PFT Result 09/20/22 Abdominal Arterial Study US (Signed) Otoniel Donahue - 07/31/22 Chest X-Ray (Signed) Christopher Kraus - 01/11/22 Abdominal Arterial Study US (Signed) Jorge Holguin - 07/25/21 Chest/Abdomen/Pelvis CT (Signed) Mason Chopra - 07/02/21 Chest X-Ray (Signed) Mason Chopra - 07/02/21 Telemetry Strips 05/16/21 Chest X-Ray (Signed) Frank German - 03/08/21 Radiology Report (Cancelled) Luz Marina Soto - 01/30/20 Myocardial Perfusion Scan Nuc Med (Signed) Luz Marina Soto - 01/30/20 Echocardiogram Ultrasound (Signed) Luz Marina Soto - 12/28/19 Carotid Doppler Study (Signed) Otoniel Donahue - 12/28/19 Brain MRI (Signed) Otoniel Donahue - 12/28/[address] (Signed) Jorge Holguin - 12/17/19 Barium Swallow X-Ray (Signed) Lea Guillen - 11/16/[address] (Signed) Mason Chopra - 11/04/19 Hip X-Ray (Signed) Frank German - 03/18/19 Carotid Doppler Study (Signed) Ravinder Marvin - 02/19/19 Telemetry Strips 05/30/18 Echocardiogram Ultrasound (Signed) Luz Marina Soto - 04/16/18 Chest X-Ray (Signed) Alpesh Chicas - 04/07/18 Launch?Image [address] [address] XRay Report Signed Patient: Osbaldo Dumont MR#: [id number] : 1940 Acct:[id number] Age/Sex: 83 / M Date of Service: 07/05/23 Loc: ED Accession Number: [id number] Procedure: XR chest 1V Ordering Provider: Elinor Ontiveros D.O. PROCEDURE: XR CHEST 1V INDICATIONS: Shortness of breath TECHNIQUE: One view of the chest was acquired. COMPARISON: [facility], CT, CT HIGH RESOLUTION CHEST, 04/05/2021, 14:56. [facility], CR, XR CHEST 2 VIEWS, 02/18/2023, 17:09. [facility], CR, XR CHEST 2V, 01/11/2022, 13:56. FINDINGS: Surgical changes and devices: Left pacemaker/AICD. Lungs and pleura: Coarsened pulmonary markings. No consolidation identified.. No pleural effusions or pneumothorax. Mediastinum: Mediastinal contours appear unchanged. Heart size is within normal limits. Bones and chest wall: No suspicious bony lesions. Overlying soft tissues appear unremarkable. IMPRESSION: No consolidation identified. Similar coarsened pulmonary markings. Fibrotic change seen on remote CT. Dictated by: Linwood Rodriguez M.D. on 07/05/2023 at 14:33 Approved by: Linwood Rodriguez M.D. on 07/05/2023 at 14:36 ECG Data Attestation: I personally reviewed and interpreted this ECG as follows: Prior ECG tracings: not available for review Interpretation: Atrial sensed ventricular paced rhythm rate 86 SD 152 QRS of 132 [address]TC [address] No acute ST elevation or depression noted. Patient had episode of tachycardia that appeared wide complex but patient's defibrillator did not fire. Unclear if this was true V-tach versus AFib with the BBB or aberrancy Atrial sensed, ventricularly paced rhythm rate of 98 SD 188 QRS of 126, QTC 495. MDM Narrative Medical decision making narrative: 83-year-old male with increased shortness of breath, weakness and some difficulty with ambulation patient drops to the mid 80s when in the bathroom. Was placed on nasal cannula is mid 90s. They note that he normally uses 3 L at night at home and sometimes during the day. Patient is COVID positive. Chest x-ray shows no consolidation. White count of 9.8 normal hemoglobin platelets of 167 patient has elevated monocytes. INR is 1.2 sodium is 136 creatinine 1.24 improved from priors with otherwise normal electrolytes and glucose of 113- troponin and BNP of 1310. EKG shows paced rhythm and was repeated. Suspect telemetry is more of a bundle- branch block does not appear to be Vtach, possible slow Vtach. Plan interrogate patient's pacemaker but family had to go home to get the device were phone for it. He has not older defibrillator. On ambulation at 4 L patient drops to 85%, blood pressure also dropped to the 80 systolic range. No complaint of dizziness. Spoke with Dr. Chavez, hospitalist accepts for admission. Awaiting interrogation. Can go upstairs. Discharge Plan Departure Patient Disposition: Admitted As Inpatient Clinical Impression: COVID-19 virus infection Admit Date/Time: 07/05/23 18:56 Admit Provider: Gigi Chavez
--- NOTE | 2023-07-05 18:18 | PC.NURSE ---
Patient was stood up at bedside with a walker and on 4L NC. Pt's BP systolic of 89/57, he denies dizziness or lightheaded. Pt states he feels fine. While standing in place, patient's o2 remains at 87% 4L NC. When patient ambulated out of the room his o2 dropped to 85% 4L NC. PT was ambulated back to his room and into bed. Provider notified.
--- NOTE | 2023-07-05 18:18 | PC.NURSE ---
Pt ambulated with o2 at 4L NC per provider. At rest in bed patient is placed on 3L NC.
--- NOTE | 2023-07-05 18:38 | PM.HP.1 ---
History of Present Illness History of Present Illness Date Patient Seen: 07/05/23 Chief complaint: sent by Dr Soto Narrative: Osbaldo Dumont is an 83yo male with PMH of pulmonary fibrosis on 2.5L chronically, CAD, non-ischemic cardiomyopathy with EF 25% s/p ICD now improved to 45-50%, TIA, AAA, GERD, HTN, HLD, bladder cancer, gout who presents with worsening dyspnea, cough, and hypoxia. Sent over from cardiology office visit due to sats in the 80's. Found to be COVID positive. Patient states he has been short of breath for months. But that it worsened in the past week with cough and congestion. In the ED patient required 4L NC and still dropped to 85% with ambulation. CXR without consolidations. He denies CP, NV, abd pain or diarrhea. [facility] Medical History History of malignant neoplasm of bladder Interstitial lung disease AAA (abdominal aortic aneurysm) Dysphonia Esophageal dysmotility Chronic cough Hayfever Gout Foot pain (2013) Mumps Measles Chicken pox Hearing loss Cataract Diverticular disease Colon polyps Bladder cancer (2007) Surgical History History of cataract extraction with lens replacement History of bladder surgery (2007) Anesthesia Status post hernia repair (1964) Status post appendectomy (1964) Family History Father Heart disease Mother Cancer Brother No problems noted. Sister No problems noted. Social History marital status: number of children: 6 household members: spouse occupational status: other Smoking Status: Former smoker alcohol intake: current caffeine: Yes Type(s) of exercise: none Meds Home Medications and Allergies Home Medications Medication Instructions Recorded Confirmed Type indomethacin 25 mg capsule 25 mg PO BID PRN gout #33 tabs 04/22/13 12/27/22 Rx aspirin 325 mg tablet 325 mg PO DAILY #30 tabs 11/18/20 12/27/22 Rx metoprolol succinate 25 mg 12.5 mg (1/2 x 25 mg) PO DAILY #90 04/13/21 12/27/22 Rx tablet,extended release 24 hr tabs ipratropium bromide 42 mcg (0.06 2 spray intranasal BID 08/24/21 12/27/22 History %) nasal spray losartan 25 mg tablet 12.5 mg (1/2 x 25 mg) PO DAILY #45 08/24/21 12/27/22 Rx tabs albuterol sulfate 90 mcg/actuation 2 puff inhalation Q4-6H PRN 01/11/22 12/27/22 Rx aerosol inhaler shortness of breath or wheezing #8.5 grams probenecid 500 mg tablet See Rx Instructions .Route 05/22/22 12/27/22 Rx .COMPLEX #180 tabs pantoprazole 40 mg tablet,delayed See Rx Instructions .Route 04/11/23 Rx release .COMPLEX #180 tabs atorvastatin 80 mg tablet See Rx Instructions .Route 06/03/23 Rx .COMPLEX #100 tabs Allergies Allergy/AdvReac Type Severity Reaction Status Date / Time No Known Drug Allergies Allergy Verified 12/27/22 08:23 Review of Systems Review of Systems Narrative: All other systems reviewed with the patient and are negative unless otherwise stated. Exam Vital Signs (past 8 hours): - 07/05/23 13:28 07/05/23 13:54 07/05/23 14:09 Temperature 98 F Pulse Rate 88 Respiratory Rate 16 Blood Pressure 150/86 H 159/86 H Pulse Oximetry 85 L 94 Oxygen Delivery Method Room Air Nasal Cannula Oxygen Flow Rate 4 07/05/23 14:30 07/05/23 14:30 07/05/23 15:00 Temperature Pulse Rate 81 Respiratory Rate 29 H Blood Pressure 143/81 H 135/74 Pulse Oximetry 94 Oxygen Delivery Method Nasal Cannula Oxygen Flow Rate 3 07/05/23 15:00 07/05/23 15:30 07/05/23 15:30 Temperature Pulse Rate 79 76 Respiratory Rate 23 22 Blood Pressure 123/68 Pulse Oximetry 94 93 Oxygen Delivery Method Nasal Cannula Oxygen Flow Rate 3 07/05/23 16:00 07/05/23 16:00 07/05/23 16:39 Temperature Pulse Rate 74 Respiratory Rate 25 H Blood Pressure 123/66 Pulse Oximetry 94 97 Oxygen Delivery Method Nasal Cannula Nasal Cannula Oxygen Flow Rate 3 3 07/05/23 16:48 07/05/23 16:48 07/05/23 17:00 Temperature Pulse Rate 130 H Respiratory Rate 31 H Blood Pressure 125/76 128/78 Pulse Oximetry 82 L Oxygen Delivery Method Nasal Cannula Oxygen Flow Rate 4 07/05/23 17:00 Temperature Pulse Rate 97 H Respiratory Rate 31 H Blood Pressure Pulse Oximetry 93 Oxygen Delivery Method Nasal Cannula Oxygen Flow Rate 4 Oxygen Delivery Method Nasal Cannula Oxygen Flow Rate 4 Narrative Exam Narrative: GEN: no acute distress HEENT: moist mucous membranes, PERRL NECK: trachea midline, no JVD CV: regular rate and rhythm, no murmurs, pacemaker in left chest PULM: clear bilaterally ABD: soft, nontender, nondistended, no organomegaly EXT: warm and well perfused with no edema NEURO: awake, alert, oriented, no focal deficits Objective Labs 07/06/23 04:50 07/06/23 04:50 Labs: Laboratory Results - last 24 hr 07/05/23 07/05/23 13:45 14:07 WBC 9.8 RBC 4.73 Hgb 14.1 Hct 41.6 MCV 88.0 MCH 29.8 MCHC 33.9 RDW 15.7 H Plt Count 167 Neut % (Auto) 75.9 H Lymph % (Auto) 6.8 L [place] % (Auto) 15.8 H Eos % (Auto) 0.8 L Baso % (Auto) 0.7 Neut # (Auto) 7400 H Lymph # (Auto) 700 L [place] # (Auto) 1500 H Eos # (Auto) 100 Baso # (Auto) 100 PT 14.0 H INR 1.2 Sodium 136 L Potassium 4.5 Chloride 105 Carbon Dioxide 23 BUN 14 Creatinine 1.24 Estimated GFR 58 L BUN/Creatinine Ratio 11.3 Glucose 113 H Lactate 1.4 Calcium 9.1 Total Bilirubin 1.3 AST 23 ALT 19 Alkaline Phosphatase 78 Troponin I < 0.012 NT-Pro-B Natriuret Pep 1320 H Total Protein 7.2 Albumin 4.1 Globulin 3.1 Albumin/Globulin Ratio 1.3 SARS-CoV-2 (PCR) Positive H Influenza A (RT-PCR) Flu a negative Influenza B (RT-PCR) Flu b negative RSV (PCR) Negative Assessment & Plan Assessment & Plan narrative: # acute on chronic hypoxic resp failure 2/2 ILD exacerbation from COVID -PCR positive in ED for COVID, CXR without consolidations -patient chronically on 2.5L due to his ILD, requiring 4L to maintain O2 sats at rest -decadron and remdesivir -duonebs and mucomyst scheduled -mucinex and tessalon perles PRN -supportive care -wean O2 as able, home O2 eval -PT/OT eval # HFrEF of 25% improved to 45-50% in Feb 2023 -continue metoprolol # CAD, h/o TIA in December 2019 -continue aspirin # HTN -continue losartan # HLD -continue lipitor # gout -hold probenecid as not on formulary # GERD -continue PPI Code status is DNR. DVT prophylaxis with Lovenox. Proxy is spouse Chelo. I have reviewed home meds and used all available resources to reconcile the home meds. Case discussed with ED physician/APC and patient will be admitted to the hospitalist service for further workup and management. This patient will be admitted as inpatient and will require greater than 2 midnights of hospital time to treat acute on chronic hypoxic respiratory failure secondary to COVID.
[2023-07-05 18:48] LABS: Magnesium 1.7 mg/dL (1.6-2.3)
[2023-07-05 19:05] LABS: Procalcitonin 0.07 ng/mL (<0.5)
[2023-07-05] MEDS: MORPHINE 2 MG/ML INJ IV (19:35)
[2023-07-05] MEDS: ACETYLCYSTEINE (PO/INH) 200 MG/ML VIAL 600 MG INH (19:35)
[2023-07-05] MEDS: REMDESIVIR 200 MG in SODIUM CHLORIDE 0.9% 250 ML 250 MG IV (19:35)
[2023-07-05] MEDS: BENZONATATE 100 MG CAPSULE PO (19:36)
[2023-07-05] MEDS: DEXAMETHASONE 10 MG/ML VIAL 6 MG IV (22:16)
[2023-07-05] MEDS: PANTOPRAZOLE DR 40 MG TABLET PO (22:17)
[2023-07-05] MEDS: guaiFENesin ER 600 MG TAB PO (22:17)
[2023-07-05] MEDS: ATORVASTATIN 20 MG TABLET PO (22:17)
[2023-07-05] MEDS: IPRATROPIUM 0.06% NASAL 15 ML 2 SPRAY NASAL (22:30)
[2023-07-06] VITALS (17 sets, daily range): BP systolic 97–120; BP diastolic 60–73; PULSE 63–104; RESP 16–20; TEMP 36–36.8; O2SAT 88–97
[2023-07-06 05:21] LABS: Add Manual Diff / Slide Review NO; Basophils Absolute Auto 0 /uL (0-100); Basophils Percent Auto 0.6 % (0-2); Eosinophils Absolute Auto 0 /uL (0-450); Hematocrit 39.4 % (41-53); Hemoglobin 13.2 g/dL (13.5-17.5); Lymphocytes Absolute Auto 400 /uL (1100-4500); Lymphocytes Percent Auto 5.4 % (25-40); Mean Corpuscular HGB Conc 33.6 % (30-36); Mean Corpuscular Hemoglobin 29.6 PG (26-34); Monocytes Absolute Auto 200 /uL (0-900); Monocytes Percent Auto 2.4 % (3-14); Neutrophils Absolute Auto 6000 /uL (1500-7000); Neutrophils Percent Auto 91.6 % (50-75); Platelet Count 153 X10^3/uL (150-400); Red Blood Cell Count 4.48 X10^6/uL (4.5-5.9); White Blood Cell Count 6.5 X10^3/uL (4.5-11.0)
[2023-07-06 05:23] LABS: BUN Creatinine Ratio 12.4 (6-22); Blood Urea Nitrogen 15 mg/dL (9-20); Calcium 8.9 mg/dL (8.4-10.2); Carbon Dioxide 21 mmol/L (22-32); Chloride 105 mmol/L (98-107); Estimated Glomerular Filt Rate > 60 mL/min (>60); Glucose 148 mg/dL (80-110); HEMOLYSIS < 15 (0-50); Potassium 4.5 mmol/L (3.4-5.1); Sodium 134 mmol/L (137-145)
[2023-07-06] MEDS: ALBUTEROL/IPRATROPIUM 3 ML AMPUL INH ×4 (08:23→19:40)
[2023-07-06] MEDS: METOPROLOL ER 25 MG TABLET 12.5 MG PO (08:41)
[2023-07-06] MEDS: LOSARTAN 25 MG TABLET 12.5 MG PO (08:41)
[2023-07-06] MEDS: IPRATROPIUM 0.06% NASAL 15 ML 2 SPRAY NASAL ×2 (08:41→21:34)
[2023-07-06] MEDS: ASPIRIN EC 325 MG TABLET PO (08:42)
[2023-07-06] MEDS: guaiFENesin ER 600 MG TAB PO ×2 (08:42→21:31)
[2023-07-06] MEDS: PANTOPRAZOLE DR 40 MG TABLET PO ×2 (08:42→21:31)
[2023-07-06] MEDS: DEXAMETHASONE 10 MG/ML VIAL 6 MG IV (08:42)
[2023-07-06] MEDS: ENOXAPARIN 40 MG/0.4 ML SYRINGE SUBCUT (08:43)
--- NOTE | 2023-07-06 10:55 | PT.IIE ---
Current Diagnoses Interstitial pulmonary disease, unspecified (07/05/23) Surgical History (Last Reviewed 07/05/23 @ 18:18 by Elinor Ontiveros DO) Anesthesia History of bladder surgery (2007) History of cataract extraction with lens replacement Status post appendectomy (1964) Status post hernia repair (1964) Medical History (Last Reviewed 07/05/23 @ 18:18 by Elinor Ontiveros DO) AAA (abdominal aortic aneurysm) Bladder cancer (2007) Cataract Chicken pox Chronic cough Colon polyps Diverticular disease Dysphonia Esophageal dysmotility Foot pain (2013) Gout Hayfever Hearing loss History of malignant neoplasm of bladder Interstitial lung disease Measles Mumps Physical Therapy Inpatient Evaluation/Re-Eval M1 PT/OT-IP Prior Functional Status Start: 07/06/23 13:04 Freq: NEEDED Status: Active Protocol: Document 07/06/23 10:55 AB (Rec: 07/06/23 13:22 AB [id number]) Medical Review Prior Functional Status Medical History Reviewed Yes Communication able to make needs known Mobility and Gait pt stated that he was independent with all mobilities and ambulation without AD Social History Household Members spouse Living Arrangements House Number of Floors (Floors) One Floor Number of Stairs To Enter/Railing? no steps to enter Home Environment High Toilet,Walk in Shower Home Equipment Straight Cane,Hand Held Shower M2 PT-IP Current Condition Start: 07/06/23 13:04 Freq: NEEDED Status: Active Protocol: Document 07/06/23 10:55 AB (Rec: 07/06/23 13:22 AB [id number]) Physical Therapy Current Condition Current Condition Evaluation Date 07/06/23 Treatment Diagnosis Covid +; difficulty in walking Onset Date 07/05/23 M3 PT-IP Subjective Start: 07/06/23 13:04 Freq: NEEDED Status: Active Protocol: Document 07/06/23 10:55 AB (Rec: 07/06/23 13:22 AB [id number]) Subjective Physical Therapy Visit Type Type Initial Evaluation Visit Start Time 10:55 Visit Stop Time 12:00 Total Visit Minutes 65 Number of EXECUTIVE ASSISTANT TO GENERAL COUNSEL Visits 0 Physical Therapy Visit Comments Patient Comments agreeable to do PT M4 PT-IP Mobility and Gait Start: 07/06/23 13:04 Freq: NEEDED Status: Active Protocol: Document 07/06/23 10:55 AB (Rec: 07/06/23 13:22 [id number]) PT-Bed Mobility Assessment Supine to Sit Supine to Sit Standby Assistance PT-Transfer Assessment Sit to and From Stand Sit to and from Stand Standby Assistance,Contact Guard Assistance,1 Person Assistance,Use of Upper Extremities Equipment Transfer Assistive Device None,Gait Belt Orthotic/Prosthetic Devices or Brace: No Transfers Transfer Destination Chair Transfer Technique ambulated Transfer Ability Level of Assist Standby Assistance,Contact Guard Assistance,1 Person Assistance,Use of Upper Extremities Comments Mobility Comments pt supine in bed. BP: 113/78 O2 sat with 3L/min: 92- 94%. pt completed supine to sit SBA . able to sit on EOB SBA. completed sit to stand SBA and ambulated ~ 20 ft without AD SBA. O2 sat checked: 82% but with good recovery to ~ 92% in <5 sec. cued pt for deep breathing in between activities and to slow down as pt is very impulsive. pt ambulated in room again and O2 sat monitored during walking and completed ~ 20 ft without AD SBA to CGA needing with (+) LOB with turning requiring min A for stability. O2 sat during ambulation ~ 93% but decreased to 84-85% afterwards . pt sat on chair. cued for deep breathing and O2 sat increased to ~ 90% in ~ 20 sec . Assessed ambulation using SPC and pt completed requiring CGA and cues. O2 sat: 84-86% and pt rested again and cued for deep breathing. Assessed ambulation using FWW. instructed pt to stand up and pt seems to have confusion and with difficulty following directions. ambulate din room using FWW CGA and max cues for safety. pt sat on the chair again. O2 sat 82-84%. cued for deep breathing and O2 sat increased to 86% in ~ 15 sec and took another ~ 15 sec to get up to 88-89%. positioned pt on the chair. call light and table placed within reach. chair alarm on. talked to nurse and hospitalist regarding pt's mobility and O2 sat and with increase confusion towards end of PT session and also decreasing ability to recover O2 sat back towards end of session. Gait Assessment Gait Gait Assistance Required: Standby Assistance,Contact Guard Assist,Minimum Assistance Distance (Feet) 20 Able to Maintain Weight Bearing Status Yes During Gait Assistive Devices Assistive Device None,Gait Belt,Straight Cane, Front Wheeled Walker Orthotic/Prosthetic Devices or Brace: No Gait Deviations General Gait Pattern Decreased Stride Length, Decreased Feet Clearance PT-Balance Assessment Sitting Balance and Reactions Static Sitting Balance Ability Normal Dynamic Sitting Balance Ability Good Standing Balance and Reactions Static Standing Balance Ability Good Dynamic Standing Balance Ability Fair Device Used without AD M5 PT-IP Objective Assessments Start: 07/06/23 13:04 Freq: NEEDED Status: Active Protocol: Document 07/06/23 10:55 AB (Rec: 07/06/23 13:22 AB [id number]) Orientation Orientation/Cognition Level of Alertness Confusional State Orientation Name,Situation Safety Awareness Decreased Safety Awareness Memory Description Short Term Impaired Gross Range of Motion Lower Extremity ROM Assessment Within Functional Limits Strength Lower Extremity Strength Assessment Within Functional Limits Muscle Tone Muscle Tone WNL Yes M6 PT-IP Treatment Start: 07/06/23 13:04 Freq: NEEDED Status: Active Protocol: Document 07/06/23 10:55 AB (Rec: 07/06/23 13:22 AB [id number]) Physical Therapy Treatment Education Education Provided Safety M7 PT-IP Assessment and Plan Start: 07/06/23 13:04 Freq: NEEDED Status: Active Protocol: Document 07/06/23 10:55 AB (Rec: 07/06/23 13:22 AB [id number]) PT Summary Assessment and Plan Potential Rehabilitation Potential Fair Status of Condition at Evaluation Evolving Summary Impairments Pain,ROM,Strength,Balance, Coordination,Sensation,Tone, Cognition,Bed Mobility, Transfers,Gait,Activity Tolerance Assessment Summary pt is an 83y/o M who is admitted for (+) COVID. pt also has pulmonary fibrosis contributing to current medical condition. pt initially only requiring SBA with mobility and with good O2 sat recovery but was needing more assistance towards end of PT session and with difficulty with O2 sat recovery influencing safety awareness and mobility independence. pt presenting with confusion towards end of PT and with difficulty following directions. Pt plans to go home with spouse. pt will require 24/7 assist at this time and will benefit from services. Goals Bed Mobility Goal Independent Transfer Goal Independent,Cane,Front Wheeled Walker Gait Goal Independent,Cane,Front Wheel Walker Gait Distance 200 Other Goals improve transfers and ambulation without AD mod I > 300 ft Days to Meet Goals 10 Frequency of Treatment Frequency Of Treatment Once a Day Treatment Plan Physical Therapy Treatment Plan Bed Mobility Training,Transfer Training,Gait Training, Therapeutic Exercise,Balance Retraining,Discharge Planning, Hot or Cold Pack,Neuromuscular Re-ed,Coordination Retraining Precautions Other Precautions O2 sat Recommendations To Nursing Amount of Assist Needed 1 Person Assist Discharge Recommendations PT Discharge Recommendations Home with 04/02 Assist Available,Home Health Equipment Needed for Home Before FWW Discharge Transportation Needs at Discharge Private Vehicle
--- NOTE | 2023-07-06 11:14 | CM.DANOTE ---
DCP: Case received, EMR reviewed. Called patient's room, since he is COVID positive. His spouse, Chelo, answered. Was able to obtain information regarding patient's baseline activity at home prior to hospitalization. DCP assessment completed with information currently available. Patient is an 83 year old male who admitted yesterday afternoon to the care of the hospitalist team. PCP: Dr. Beauchamp. Payer: confirmed: [employer] Medicare. Patient came to the hospital via private vehicle secondary to having increased cough, shortness of breath. Patient has history of pulmonary fibrosis, is on home oxygen, mainly in the evening, according to spouse. Patient also has pacemaker. In the ED, patient required 4 liters of oxygen. Patient was admitted for acute on chronic hypoxic respiratory failure secondary to COVID. Did not enter room, secondary to being COVID positive, but was able to speak to his spouse in the room via phone. Confirmed that patient ans spoude reside here in [place]. Spouse indicated that patient is independent at baseline, uses no DME, has oxygen at home, uses at night. Patient does still drive short distances. Mentioned home health services, but did let her know that patient would need to be home bound. P: DCP to continue to follow. Patient should be able to go home when deemed medically stable. Katie Cordova RN/Chipper Discharge Planning/Care Management CM Discharge Assessment Start: 07/06/23 11:12 Freq: Status: Active Protocol: Document 07/06/23 11:12 (Rec: 07/06/23 11:13 [id number]) Discharge Planning Assessment Assigned Sheriff Officer Katie Cordova RN/Chipper Advance Directives? No History Provided By Patient,Medical Record Prior Living Arrangements House Household Members spouse Type of transporation used prior to Drives own vehicle admit Independent with ADL's Yes Is patient alert and oriented? Yes Caregiver for Another No DME Already Rented / Owned Oxygen Barriers to Discharge No Discharge Plan Home Transportation Arrangement Spouse Referrals Initiated None needed Whiteboard Updated in Patient Room with Yes name and ext. # of Sheriff Officer Review Status In Process Next Review Type Continued Stay Review
--- NOTE | 2023-07-06 13:40 | P.PN_ITS ---
Subjective Subjective Interval history: Patient desatted to 82% with PT. He says he feels fine. and daughter in room are concerned he is acting a bit confused. They say he hallucinates at home sometimes. Exam Vital Signs (past 8 hours): - 07/06/23 06:00 07/06/23 07:00 07/06/23 08:23 Temperature 96.8 F L Pulse Rate 71 68 Respiratory Rate 16 20 Blood Pressure 120/65 Pulse Oximetry 91 94 97 Oxygen Delivery Method Nasal Cannula Nasal Cannula Oxygen Flow Rate 3 3 Fraction of Inspired Oxygen 32 07/06/23 08:41 07/06/23 08:41 07/06/23 09:00 Temperature Pulse Rate 71 71 Respiratory Rate Blood Pressure 120/65 120/65 Pulse Oximetry Oxygen Delivery Method Nasal Cannula Oxygen Flow Rate Fraction of Inspired Oxygen 07/06/23 09:11 07/06/23 10:00 07/06/23 10:31 Temperature Pulse Rate 89 73 Respiratory Rate 18 Blood Pressure Pulse Oximetry 96 94 Oxygen Delivery Method Nasal Cannula Nasal Cannula Oxygen Flow Rate 3 3 Fraction of Inspired Oxygen 32 07/06/23 11:00 Temperature Pulse Rate 79 Respiratory Rate 16 Blood Pressure 113/63 Pulse Oximetry 93 Oxygen Delivery Method Oxygen Flow Rate Fraction of Inspired Oxygen Fraction of Inspired Oxygen 32 SaO2/FiO2 Ratio 293 Oxygen Delivery Method Nasal Cannula Oxygen Flow Rate 3 Narrative Exam Narrative: GEN: no acute distress, slightly confused HEENT: moist mucous membranes, PERRL NECK: trachea midline, no JVD CV: regular rate and rhythm, no murmurs, pacemaker in left chest PULM: fine crackles bilaterally ABD: soft, nontender, nondistended, no organomegaly EXT: warm and well perfused with no edema NEURO: awake, alert, oriented, no focal deficits Objective Labs 07/06/23 04:50 07/06/23 04:50 Labs: Laboratory Results - last 24 hr 07/05/23 07/05/23 07/06/23 13:45 14:07 04:50 WBC 9.8 6.5 RBC 4.73 4.48 L Hgb 14.1 13.2 L Hct 41.6 39.4 L MCV 88.0 88.0 MCH 29.8 29.6 MCHC 33.9 33.6 RDW 15.7 H 16.0 H Plt Count 167 153 Neut % (Auto) 75.9 H 91.6 H Lymph % (Auto) 6.8 L 5.4 L [place] % (Auto) 15.8 H 2.4 L Eos % (Auto) 0.8 L 0.0 L Baso % (Auto) 0.7 0.6 Neut # (Auto) 7400 H 6000 Lymph # (Auto) 700 L 400 L [place] # (Auto) 1500 H 200 Eos # (Auto) 100 0 Baso # (Auto) 100 0 PT 14.0 H INR 1.2 Sodium 136 L 134 L Potassium 4.5 4.5 Chloride 105 105 Carbon Dioxide 23 21 L BUN 14 15 Creatinine 1.24 1.21 Estimated GFR 58 L > 60 BUN/Creatinine Ratio 11.3 12.4 Glucose 113 H 148 H Lactate 1.4 Calcium 9.1 8.9 Magnesium 1.7 Total Bilirubin 1.3 AST 23 ALT 19 Alkaline Phosphatase 78 Troponin I < 0.012 NT-Pro-B Natriuret Pep 1320 H Total Protein 7.2 Albumin 4.1 Globulin 3.1 Albumin/Globulin Ratio 1.3 Procalcitonin 0.07 SARS-CoV-2 (PCR) Positive H Influenza A (RT-PCR) Flu a negative Influenza B (RT-PCR) Flu b negative RSV (PCR) Negative PFSH Medical History History of malignant neoplasm of bladder Interstitial lung disease AAA (abdominal aortic aneurysm) Dysphonia Esophageal dysmotility Chronic cough Hayfever Gout Foot pain (2013) Mumps Measles Chicken pox Hearing loss Cataract Diverticular disease Colon polyps Bladder cancer (2007) Surgical History History of cataract extraction with lens replacement History of bladder surgery (2007) Anesthesia Status post hernia repair (1964) Status post appendectomy (1964) Family History Father Heart disease Mother Cancer Brother No problems noted. Sister No problems noted. Social History marital status: number of children: 6 household members: spouse occupational status: other Smoking Status: Former smoker alcohol intake: current caffeine: Yes Type(s) of exercise: none Assessment & Plan Assessment & Plan narrative: # acute on chronic hypoxic resp failure 2/2 ILD exacerbation from COVID -PCR positive in ED for COVID, CXR without consolidations -patient chronically on 2.5L due to his ILD, requiring 4L to maintain O2 sats at rest -continue IV decadron, family declined remdesivir -duonebs and mucomyst scheduled -mucinex and tessalon perles PRN -supportive care -wean O2 as able, desatted to 82% with PT home O2 eval to determine what rate he needs at home -PT/OT eval rec 04/02 assist at home, 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 DVT prophylaxis with Lovenox. Proxy is spouse Chelo. I have reviewed home meds and used all available resources to reconcile the home meds. Dispo: Likely home with HH on 07/07.
[2023-07-06] MEDS: ACETYLCYSTEINE (PO/INH) 200 MG/ML VIAL 600 MG INH (14:23)
[2023-07-06] MEDS: ATORVASTATIN 20 MG TABLET PO (21:31)
[2023-07-06] MEDS: BENZONATATE 100 MG CAPSULE PO (21:50)
[2023-07-07] VITALS (9 sets, daily range): BP systolic 103–131; BP diastolic 55–88; PULSE 63–75; RESP 18; TEMP 36.1–36.7; O2SAT 90–97
[2023-07-07 05:04] LABS: Add Manual Diff / Slide Review NO; Basophils Absolute Auto 0 /uL (0-100); Basophils Percent Auto 0.2 % (0-2); Eosinophils Absolute Auto 0 /uL (0-450); Hemoglobin 12.7 g/dL (13.5-17.5); Lymphocytes Absolute Auto 900 /uL (1100-4500); Lymphocytes Percent Auto 7.7 % (25-40); Mean Corpuscular HGB Conc 33.5 % (30-36); Mean Corpuscular Hemoglobin 29.3 PG (26-34); Mean Corpuscular Volume 87.5 fL (80-100); Monocytes Absolute Auto 2000 /uL (0-900); Monocytes Percent Auto 17.1 % (3-14); Neutrophils Absolute Auto 8800 /uL (1500-7000); Platelet Count 159 X10^3/uL (150-400); Red Blood Cell Count 4.34 X10^6/uL (4.5-5.9); Red Cell Distribution Width 15.8 % (11.6-14.8); White Blood Cell Count 11.8 X10^3/uL (4.5-11.0)
[2023-07-07 05:15] LABS: Blood Urea Nitrogen 29 mg/dL (9-20); Calcium 8.9 mg/dL (8.4-10.2); Carbon Dioxide 22 mmol/L (22-32); Chloride 107 mmol/L (98-107); Estimated Glomerular Filt Rate > 60 mL/min (>60); Glucose 135 mg/dL (80-110); HEMOLYSIS < 15 (0-50); Potassium 4.1 mmol/L (3.4-5.1); Sodium 134 mmol/L (137-145)
--- NOTE | 2023-07-07 05:19 | PC.NURSE ---
night shift: Patient is alert & oriented to self & place, required x2 attempts to accurately state month/year, required reorienting on situation. Forgetful at times, but is calm and compliant with care. Denies pain, nausea, or difficulty breathing. SOB noted on exertion. Fine crackles noted on bilateral bases. Vital signs are stable, remains on 4L NC, O2 saturation in mid 90's. Desats to 80's on RA. Requires stand-by assistance to the bathroom. Call-light within reach, fall precautions in place.
[2023-07-07] MEDS: ENOXAPARIN 40 MG/0.4 ML SYRINGE SUBCUT (08:37)
[2023-07-07] MEDS: ASPIRIN EC 325 MG TABLET PO (08:38)
[2023-07-07] MEDS: DEXAMETHASONE 10 MG/ML VIAL 6 MG IV (08:38)
[2023-07-07] MEDS: guaiFENesin ER 600 MG TAB PO (08:39)
[2023-07-07] MEDS: PANTOPRAZOLE DR 40 MG TABLET PO (08:39)
[2023-07-07] MEDS: METOPROLOL ER 25 MG TABLET 12.5 MG PO (08:47)
[2023-07-07] MEDS: LOSARTAN 25 MG TABLET 12.5 MG PO (08:48)
[2023-07-07] MEDS: IPRATROPIUM 0.06% NASAL 15 ML 2 SPRAY NASAL (09:00)
--- NOTE | 2023-07-07 09:14 | CM.DPC ---
Addendum entered by JAIME Renner 07/07/23 11:01: ADD: Per [facility], [facility] no one has pt on their caseload for Resume Orders. SW made [facility] referral based on Vendor Calendar and faxed F2F, HH orders, and d/c summary after initial referral faxed via [employer]. BF Original Note: DCP Discharge Home with HH Per MD, pt seems to be back to baseline with his oxygen needs and does still de-sat with exertion but likely stable for d/c home today. Per PT, recommending home with HH. SW met bedside with pt and explained role and pt confirms he is hopeful and agreeable to d/c home today via spouse POV and SW discussed HH and pt states he is already open with HH agency the past 2-3 weeks and would be agreeable to continuing with HH but cannot remember which HH agency. Pt states he also has a workout room in his home with multiple equipment to use to keep up his strength and skills and states his keeps on me to make sure I am still working out regularly. Plan: Patient to likely discharge home today via spouse POV and Resume HH. SW to call agencies to confirm which HH agency pt is currently open with and fax them pt's discharge summary to review and confirm they can Resume at d/c. JAIME Renner
--- NOTE | 2023-07-07 11:11 | PM.DS.1 ---
History of Present Illness History of Present Illness Chief complaint: sent by Dr Soto Narrative: 83yo male with PMH of pulmonary fibrosis on 2.5L chronically, CAD, non-ischemic cardiomyopathy with EF 25% s/p ICD now improved to 45-50%, TIA, AAA, GERD, HTN, HLD, bladder cancer, gout who presents with worsening dyspnea, cough, and hypoxia. Sent over from cardiology office visit due to sats in the 80's. Found to be COVID positive. Patient states he has been short of breath for months. But that it worsened in the past week with cough and congestion. In the ED patient required 4L NC and still dropped to 85% with ambulation. CXR without consolidations. He denies CP, NV, abd pain or diarrhea. Discharge Providers Provider Date of admission: 07/05/23 18:56 Discharge Date: 07/07/23 Primary care physician: Jeffrey Beauchamp MD Consults: 07/05/23 18:46 Consult to Occupational Therapy Evaluate & Treat Comment: Physician Instructions: Evaluate and treat Consult to Physical Therapy Evaluate & Treat Comment: Physician Instructions: Evaluate and Treat 07/06/23 13:42 Consult to Home Health Routine Comment: Reason For Exam: patient weak with COVID Discharge provider: Bernard Tavera MD Summary Hospital Course Discharge Diagnosis: 1. COVID-19 2. Chronic pulmonary fibrosis 3. Acute on chronic hypoxic respiratory failure 4. History of non-ischemic cardiomyopathy 5. History of CHFrEF 6. Acute metabolic encephalopathy Hospital Course: Pt was treated with IV dexamethasone. He was offered but family/patient declined remdesivir. He had improvement in respiratory distress and able to discharge home. He did have some increased confusion in hospital which has cleared up though family states he does get confused and hallucinates at home sometimes. Status at Discharge Cognitive/behavioral status at discharge: oriented Functional status at discharge: independent ambulation Overall status at discharge: patient is progressing back to baseline Time Spent with Patient Time spent: Greater than 30 minutes Exam Vital Signs (past 8 hours): - 07/07/23 05:00 07/07/23 05:00 07/07/23 05:40 Temperature Pulse Rate 63 Respiratory Rate 18 Blood Pressure 110/76 Pulse Oximetry 96 97 Oxygen Delivery Method Nasal Cannula Oxygen Flow Rate 4 4 07/07/23 07:00 07/07/23 08:00 07/07/23 08:47 Temperature 96.9 F L Pulse Rate 75 70 Respiratory Rate 18 Blood Pressure 131/88 122/82 Pulse Oximetry 90 L Oxygen Delivery Method Nasal Cannula Oxygen Flow Rate 4 07/07/23 08:48 07/07/23 09:00 07/07/23 09:15 Temperature Pulse Rate 71 Respiratory Rate Blood Pressure 122/82 Pulse Oximetry 95 97 Oxygen Delivery Method Nasal Cannula Nasal Cannula Oxygen Flow Rate 3 3 07/07/23 09:17 Temperature Pulse Rate Respiratory Rate Blood Pressure 103/55 L Pulse Oximetry Oxygen Delivery Method Oxygen Flow Rate Fraction of Inspired Oxygen 32 SaO2/FiO2 Ratio 293 Oxygen Delivery Method Nasal Cannula Oxygen Flow Rate 3 Narrative Exam Narrative: Gen: alert, NAD, oriented to person and place Lungs: bilat chronic crackles Ext: no edema Objective Labs 07/07/23 04:35 07/07/23 04:35 Labs: Laboratory Results - last 24 hr 07/07/23 04:35 WBC 11.8 H D RBC 4.34 L Hgb 12.7 L Hct 38.0 L MCV 87.5 MCH 29.3 MCHC 33.5 RDW 15.8 H Plt Count 159 Neut % (Auto) 75.0 Lymph % (Auto) 7.7 L [place] % (Auto) 17.1 H Eos % (Auto) 0.0 L Baso % (Auto) 0.2 Neut # (Auto) 8800 H Lymph # (Auto) 900 L [place] # (Auto) 2000 H Eos # (Auto) 0 Baso # (Auto) 0 Sodium 134 L Potassium 4.1 Chloride 107 Carbon Dioxide 22 BUN 29 H Creatinine 1.21 Estimated GFR > 60 BUN/Creatinine Ratio 24.0 H Glucose 135 H Calcium 8.9 PFSH Medical History History of malignant neoplasm of bladder Interstitial lung disease AAA (abdominal aortic aneurysm) Dysphonia Esophageal dysmotility Chronic cough Hayfever Gout Foot pain (2013) Mumps Measles Chicken pox Hearing loss Cataract Diverticular disease Colon polyps Bladder cancer (2007) Surgical History History of cataract extraction with lens replacement History of bladder surgery (2007) Anesthesia Status post hernia repair (1964) Status post appendectomy (1964) Family History Father Heart disease Mother Cancer Brother No problems noted. Sister No problems noted. Social History marital status: number of children: 6 household members: spouse occupational status: other Smoking Status: Former smoker alcohol intake: current caffeine: Yes Type(s) of exercise: none Discharge Plan Discharge Plan Patient Disposition: Home Provider Discharge Comment: We gave you IV steroid (dexamethasone) for COVID-19. Continue routine home medications. You may need to temporarily increase O2 with ambulation to keep sat > 90%. Discharge orders & Medications Prescriptions: Continued aspirin 325 mg tablet 325 mg PO DAILY Qty: 30 3RF metoprolol succinate 25 mg tablet extended release 24 hr 12.5 mg PO DAILY Qty: 90 3RF probenecid 500 mg tablet See Rx Instructions .ROUTE .COMPLEX Qty: 180 3RF Dose Instruction: TAKE 1 TABLET BY MOUTH TWICE DAILY. Rx Instructions: TAKE 1 TABLET BY MOUTH TWICE DAILY. pantoprazole 40 mg tablet,delayed release (DR/EC) See Rx Instructions .ROUTE .COMPLEX Qty: 180 3RF Dose Instruction: TAKE 1 TABLET BY MOUTH TWICE DAILY Rx Instructions: TAKE 1 TABLET BY MOUTH TWICE DAILY atorvastatin 80 mg tablet See Rx Instructions .ROUTE .COMPLEX Qty: 100 0RF Dose Instruction: TAKE 1 TABLET BY MOUTH DAILY Rx Instructions: TAKE 1 TABLET BY MOUTH DAILY ipratropium bromide 42 mcg (0.06 %) spray,non-aerosol 2 spray intranasal BID Rx Instructions: administer into each nostril losartan 25 mg tablet 12.5 mg PO DAILY Qty: 45 3RF indomethacin 25 mg capsule 25 mg PO BID PRN (Reason: gout) Qty: 33 1RF albuterol sulfate 90 mcg/actuation HFA aerosol inhaler 2 puff inhalation Q4-6H PRN (Reason: shortness of breath or wheezing) Qty: 8.5 0RF Follow up/Referrals: Jeffrey Beauchamp MD [Primary Care Provider] - Diet/Activity/Treatments Diet: Diet as Tolerated Visit Report/Discharge Packet Stand Alone Forms: Patient Portal/API, Stroke Signs & Symptoms Discharge Data Primary Care Provider: Jeffrey Beauchamp
== END 2023-07-07 11:08 | disposition home health service (06) | DRG 177 ==
LOC: ED 17:37 → AC 18:56
PROVIDERS: Admitting Provider Student in an Organized Health Care Education/Training Program; Emergency Provider Emergency Medicine; PCP Family Medicine; Referring Provider Emergency Medicine; Visit Provider Student in an Organized Health Care Education/Training Program
DX: U07.1 COVID-19 (principal); G93.41 Metabolic encephalopathy; J96.21 Acute and chronic respiratory failure with hypoxia; I50.20 Unspecified systolic (congestive) heart failure; I11.0 Hypertensive heart disease with heart failure; I25.10 Atherosclerotic heart disease of native coronary artery without angina pectoris; E78.5 Hyperlipidemia, unspecified; K21.9 Gastro-esophageal reflux disease without esophagitis; J84.10 Pulmonary fibrosis, unspecified; Z86.73 Personal history of transient ischemic attack (TIA), and cerebral infarction without residual deficits; Z99.81 Dependence on supplemental oxygen; Z66 Do not resuscitate; Z87.891 Personal history of nicotine dependence
CPT/HCPCS: 0241U; 36415; 71045; 80048; 80053; 83605; 83735; 83880; 84145; 84484; 85025; 85610; 93005; 93010; 94618; 94640; 94760; 96365; 96375; 97116; 97163; 99285; J1100; J1650; J2270; J2405

== ENCOUNTER → 2023-09-17 08:40 | Outpatient (CLI) | payer MEDICARE, SELFPAY ==
[2023-07-05 21:08] VITALS: BMI 27.2
--- NOTE | 2023-09-17 08:43 | DI.MG.S_ITS ---
MALE BILATERAL DIGITAL DIAGNOSTIC MAMMOGRAM 3D/2D: 09/17/2023 CLINICAL: Left breast lump. No prior exams were available for comparison. A BB marker was placed in the area of clinical concern in the left breast, and there is benign gynecomastia. No significant masses, calcifications, or other findings are seen in either breast. IMPRESSION: BENIGN Asymmetric left breast gynecomastia. Finding is benign. No mammographic evidence of malignancy. Clinical follow-up is also recommended, and further management of palpable abnormalities or other focal signs or symptoms should be based on the results of clinical evaluation. If palpable abnormality or other concerning symptom persists or progresses, further clinical evaluation should be considered. Findings and recommendations were conveyed to the patient during today's evaluation. This exam was interpreted at Station ID: [id number]. NOTE: For mammograms, a report in lay terms will be sent to the patient. Approximately 15% of breast malignancies will not be visualized mammographically. In the management of a palpable breast mass, a negative mammogram must not discourage biopsy of a clinically suspicious lesion. Electronically Signed By: Angie Fischer M.D., PH.D eb/:09/17/2023 09:58:06 letter sent: Clinical Evaluation ACR BI-RADS Category 2: Benign Finding(s) [id number]
== END ==
PROVIDERS: PCP Family Medicine; Referring Provider Physician Assistant; Visit Provider Physician Assistant
DX: N62 Hypertrophy of breast (principal)
CPT/HCPCS: 77066; G0279

== ENCOUNTER 2023-09-18 08:30 | Outpatient (RCR) | payer MEDICARE, SELFPAY | END 2023-09-18 14:00 | LOC: PUL 08:30 | PROVIDERS: PCP Family Medicine; Referring Provider Internal Medicine Pulmonary Disease; Visit Provider Internal Medicine Pulmonary Disease | DX: J84.89 Other specified interstitial pulmonary diseases (principal) | CPT/HCPCS: 36415; 80053; 84146; 85025; 85610; G0237; G0238 ==